=== PATIENT | female | born 1985 | race Caucasian/White ===

== ENCOUNTER 2023-09-07 14:15 | Emergency (ER) | payer OTHER, SELFPAY ==
[2023-09-07 14:21] VITALS: BP 136/93; PULSE 107; TEMP 36.6; O2SAT 99; BMI 31.1
--- NOTE | 2023-09-07 15:17 | ED.URI1 ---
HPI - URI/Sore Throat General Chief Complaint: Upper Respiratory Infection Stated Complaint: COUGH Time Seen by Provider: 09/07/23 14:25 Source: patient Limitations: no limitations History of Present Illness HPI Narrative: Patient presents to ED complaining of upper respiratory infection and cough. She has been sick for about a week and she was seen at [facility] a couple of days ago. She was placed on antibiotics steroids and given albuterol and diagnosed with bronchitis, possible pneumonia. She reports that her breathing still feels tight and she feels like her chest is tight. She reports pain in her ribs and back from coughing so much. She is at [facility] For history of fentanyl abuse. She has been sober and has 11 days left there and then will transition to sober living.She is in no respiratory distress but is mildly tachycardic. Related Data Home Medications ?Medication ?Instructions ?Recorded ?Confirmed [id number]-iudpyctn 250 1 tab PO Q6H 09/07/23 09/07/23 mg-250 mg-65 mg tablet (Pain Reliever Plus) benzonatate 100 mg capsule 100 mg PO Q12H 09/07/23 09/07/23 buspirone 7.5 mg tablet 7.5 mg PO Q12H 09/07/23 09/07/23 cetirizine 10 mg tablet 10 mg PO DAILY 09/07/23 09/07/23 docusate sodium 100 mg capsule 100 mg PO DAILY 09/07/23 09/07/23 doxycycline hyclate 100 mg capsule 100 mg PO Q12H 09/07/23 09/07/23 guaifenesin 600 mg tablet, 600 mg PO Q12H 09/07/23 09/07/23 extended release 12 hr (Mucinex) ibuprofen 800 mg tablet 800 mg PO Q12H 09/07/23 09/07/23 melatonin 10 mg tablet 10 mg PO DAILY 09/07/23 09/07/23 naltrexone microspheres 380 mg 380 mg IM .monthly 09/07/23 09/07/23 intramuscular suspension,extended release (Vivitrol) prazosin 1 mg capsule 1 mg PO DAILY 09/07/23 09/07/23 prednisone 10 mg tablet 10 mg PO Q12H 09/07/23 09/07/23 sertraline 50 mg tablet 50 mg PO Q24H 09/07/23 09/07/23 trazodone 50 mg tablet 50 mg PO DAILY 09/07/23 09/07/23 Previous Rx's ?Medication ?Instructions ?Recorded albuterol sulfate 0.63 mg/3 mL 0.63 mg (3 mL) inhalation Q8H PRN 09/07/23 solution for nebulization shortness of breath or wheezing #90 mL azithromycin 500 mg tablet See Rx Instructions PO .COMPLEX #3 09/07/23 (Zithromax TRI-LILI) tabs Allergies Allergy/AdvReac Type Severity Reaction Status Date / Time No Known Drug Allergies Allergy Verified 09/07/23 14:20 Review of Systems ROS Status of ROS 10 or more systems reviewed and unremarkable except as noted in history and below Exam Narrative Exam Narrative: Time Seen: [] Vital Signs: [Per nurse's notes.] General: [Alert] Skin: [Warm, dry, no rash.] Head: [Normocephalic, atraumatic.] Neck: [Supple, trachea midline.] Eye: [Pupils are equal, round and reactive to light, extraocular movements are intact, normal conjunctiva.] Ears, nose, mouth and throat: oral mucosa moist. Cardiovascular: Tachycardia, no murmur.] Respiratory: [Mild diminished breath sounds bilaterally respirations are non-labored, breath sounds are equal.] Chest wall: [No tenderness, no deformity.] Gastrointestinal: [Soft, nontender, non distended, normal bowel sounds.] MSK: 5 out of 5 muscle strength x 4 extremities no calf pain or edema Lymphatics: [No lymphadenopathy.] Psychiatric: [Cooperative, appropriate mood & affect.] Neurological: [Alert and oriented to person, place, time, and situation, no focal neurological deficit observed.] Constitutional Vital Signs, click to edit/add: Last Vital Signs Temp 97.9 F 09/07/23 14:21 Pulse 103 H 09/07/23 16:45 Resp 18 09/07/23 16:45 BP 127/74 09/07/23 16:45 Pulse Ox 99 09/07/23 16:45 O2 Del Method Room Air 09/07/23 15:42 Course Vital Signs Vital signs: Vital Signs Temperature 97.9 F 09/07/23 14:21 Pulse Rate 107 H 09/07/23 14:21 Respiratory Rate 18 09/07/23 14:21 Blood Pressure 136/93 H 09/07/23 14:21 Pulse Oximetry 99 09/07/23 14:21 Oxygen Delivery Method Room Air 09/07/23 14:21 Temperature 97.9 F 09/07/23 14:21 Pulse Rate 103 H 09/07/23 16:45 Respiratory Rate 18 09/07/23 16:45 Blood Pressure 127/74 09/07/23 16:45 Pulse Oximetry 99 09/07/23 16:45 Oxygen Delivery Method Room Air 09/07/23 15:42 MDM - URI/Sore Throat MDM Narrative Medical decision making narrative: Patient's labs show an elevated lactate. She was given IV fluids and her lactate did trend down. Her heart rate was originally at 115 and after fluids she came down to 89. She is feeling better. CT scan does not show any evidence of pneumonia. Labs are otherwise unremarkable. Patient does have some facial pain and sinus pressure. I am going to switch her from doxycycline over to azithromycin to cover sinuses better as well. She does have a nebulizer machine but no medication for it so I will write her for that. She has 1 more day on her steroids so she was instructed to finish her taper. Return to the emergency room if worsening symptoms or concerns. Her D-dimer was negative, no evidence of blood clot. Differential Diagnosis Differential diagnosis: Likely upper respiratory infection, sinusitis, viral infection and bronchitis Medical Records Attestation: I reviewed the patient's medical records. Lab Data Attestation: I reviewed the patient's lab results. Labs: Lab Results 09/07/23 09/07/23 Range/Units 15:20 18:10 WBC 9.2 (4.0-11.0) 10^3/uL RBC 4.52 (4.20-5.40) 10^6/uL Hgb 14.1 (12.0-16.0) g/dL Hct 42.2 (36.0-48.0) % MCV 93.4 (81.0-99.0) fL MCH 31.2 (26.7-34.0) pg MCHC 33.4 (29.9-35.2) g/dL RDW 12.9 (11.0-15.0) % Plt Count 294 (150-450) 10^3/uL MPV 11.1 (9.5-13.5) fL Neut % (Auto) 87.1 H (43.0-75.0) % Lymph % (Auto) 9.9 L (20.5-60.0) % Mccormick % (Auto) 2.4 (1.7-12.0) % Eos % (Auto) 0.0 L (0.9-7.0) % Baso % (Auto) 0.1 L (0.2-2.0) % Neut # (Auto) 8.0 H (1.4-6.5) 10^3/uL Lymph # (Auto) 0.9 L (1.2-3.8) 10^3/uL Mccormick # (Auto) 0.2 L (0.3-0.8) 10^3/uL Eos # (Auto) 0.0 (0.0-0.7) 10^3/uL Baso # (Auto) 0.0 (0.0-0.1) 10^3/uL Abs Immat Gran (auto) 0.05 H (0.00-0.03) 10^3/uL Imm/Tot Granulo (auto) 0.5 (0.0-0.5) % D-Dimer 0.27 (<=0.59) mg/L FEU Sodium 142 (136-145) mmol/L Potassium 4.0 (3.5-5.1) mmol/L Chloride 107 (98-107) mmol/L Carbon Dioxide 22.5 (21.0-32.0) mmol/L Anion Gap 16.5 BUN 23.0 H (7.0-18.0) mg/dL Creatinine 0.94 (0.55-1.02) mg/dL Est GFR ( Amer) >60 (>=60) Est GFR (Non-Af Amer) >60 (>=60) BUN/Creatinine Ratio 24.5 Glucose 201 H (74-106) mg/dL Lactate 3.1 H* 2.6 H* (0.4-2.0) mmol/L Calcium 9.2 (8.5-10.1) mg/dL Total Bilirubin 0.2 (0.2-1.0) mg/dL AST 7 L (15-37) U/L ALT 22 (14-59) U/L Alkaline Phosphatase 95 (46-116) U/L Total Protein 7.0 (6.4-8.2) g/dL Albumin 3.5 (3.4-5.0) g/dL Globulin 3.5 g/dL Albumin/Globulin Ratio 1.0 Imaging Data Chest x-ray: Radiologist's impression: ITS Impressions Chest CT 09/07/23 16:26 IMPRESSION: No acute abnormality. Unremarkable CT of the chest. Electronically authenticated by: LAM MONTANO Date: 09/07/2023 18:41 Discharge Plan Discharge Stand Alone Forms: Portal Instructions Chief Complaint: Upper Respiratory Infection Clinical Impression: Upper respiratory infection, Sinusitis Patient Disposition: Home, Self-Care Time of Disposition Decision: 18:54 Mode of Transportation: Private Vehicle Prescriptions / Home Meds: New azithromycin [Zithromax TRI-LILI] 500 mg tablet See Rx Instructions .ROUTE .COMPLEX Qty: 3 0RF Rx Instructions: For 250 mg dose pack: take 500 mg today (day 1), then 250 mg for 4 days (days 2-5) albuterol sulfate 0.63 mg/3 mL solution for nebulization 0.63 mg inhalation Q8H PRN (Reason: shortness of breath or wheezing) Qty: 90 0RF No Action Pain Reliever Plus 250-250-65 mg tablet 1 tab PO Q6H benzonatate 100 mg capsule 100 mg PO Q12H buspirone 7.5 mg tablet 7.5 mg PO Q12H cetirizine 10 mg tablet 10 mg PO DAILY docusate sodium 100 mg capsule 100 mg PO DAILY doxycycline hyclate 100 mg capsule 100 mg PO Q12H guaifenesin [Mucinex] 600 mg tablet extended release 12hr 600 mg PO Q12H ibuprofen 800 mg tablet 800 mg PO Q12H melatonin 10 mg tablet 10 mg PO DAILY Vivitrol 380 mg suspension,extended rel recon 380 mg IM .monthly prazosin 1 mg capsule 1 mg PO DAILY prednisone 10 mg tablet 10 mg PO Q12H sertraline 50 mg tablet 50 mg PO Q24H trazodone 50 mg tablet 50 mg PO DAILY Print Language: Ukrainian Instructions: Sinusitis (ED), Acute Bronchitis (ED) Referrals: KADY MTZ [Primary Care Provider] - 1 week
[2023-09-07 15:33] LABS: Basophils Percent Auto 0.1 % (0.2-2.0); Hematocrit 42.2 % (36.0-48.0); Hemoglobin 14.1 g/dL (12.0-16.0); Immature Granulocytes Abs Auto 0.05 10^3/uL (0.00-0.03); Immature Granulocytes Pct Auto 0.5 % (0.0-0.5); Lymphocytes Absolute Auto 0.9 10^3/uL (1.2-3.8); Lymphocytes Percent Auto 9.9 % (20.5-60.0); Mean Corpuscular HGB Conc 33.4 g/dL (29.9-35.2); Mean Corpuscular Hemoglobin 31.2 pg (26.7-34.0); Mean Corpuscular Volume 93.4 fL (81.0-99.0); Mean Platelet Volume 11.1 fL (9.5-13.5); Monocytes Absolute Auto 0.2 10^3/uL (0.3-0.8); Monocytes Percent Auto 2.4 % (1.7-12.0); Neutrophils Percent Auto 87.1 % (43.0-75.0); Platelet Count 294 10^3/uL (150-450); Red Blood Count 4.52 10^6/uL (4.20-5.40); Red Cell Distribution Width 12.9 % (11.0-15.0); White Blood Count 9.2 10^3/uL (4.0-11.0)
[2023-09-07] MEDS: IPRATROPIUM/ALBUTEROL SULFATE 3 ML AMPUL.NEB IH (15:41)
[2023-09-07 15:42] VITALS: PULSE 100; O2SAT 100
[2023-09-07 15:50] LABS: Alanine Aminotransferase 22 U/L (14-59); Albumin Level 3.5 g/dL (3.4-5.0); Alkaline Phosphatase 95 U/L (46-116); Anion Gap 16.5; Aspartate Amino Transferase 7 U/L (15-37); BUN Creatinine Ratio 24.5; Bilirubin Total 0.2 mg/dL (0.2-1.0); Calcium 9.2 mg/dL (8.5-10.1); Carbon Dioxide 22.5 mmol/L (21.0-32.0); Chloride 107 mmol/L (98-107); Estimated GFR (African America >60 (>=60); Estimated GFR (Non-African Ame >60 (>=60); Globulin 3.5 g/dL; Glucose 201 mg/dL (74-106); Sodium 142 mmol/L (136-145)
[2023-09-07 15:54] LABS: Lactate/Lactic Acid 3.1 mmol/L (0.4-2.0)
[2023-09-07 16:18] LABS: D Dimer 0.27 mg/L FEU (<=0.59)
--- NOTE | 2023-09-07 16:26 | CT_ITS ---
[address] [address] Patient Name: RIOS MENDEZ MRN: [id number] date: 1985 Sex: F Assigned Patient Location: ER Current Patient Location: ER Accession/Order Number: [id number] Exam Date: 09/07/2023 17:24 Report Date: 09/07/2023 18:41 At the request of: EVELYN MCCOY Procedure: CT chest wo con EXAM: CT chest wo con HISTORY: sob cough COMPARISON: None. TECHNIQUE: Axial CT imaging was performed through the chest without intravenous contrast. Multiplanar reformats were performed. Dose reduction techniques were achieved by using automated exposure control and/or adjustment of mA and/or kV according to patient size and/or use of iterative reconstruction technique. FINDINGS: Lungs: No consolidation, mass, or effusion. Airways: Normal. Mediastinum: No adenopathy. Aorta: No aneurysm. Cardiac: Normal size. No pericardial effusion. Coronary Arteries: Coronary calcifications are absent. Pulmonary vasculature: Normal morphology. Bones: No acute bony abnormality. Axilla: No adenopathy. Thyroid gland: No abnormality demonstrated on provided imaging. Soft tissues: Unremarkable. Upper abdomen: Unremarkable. Other findings: None. CT/CT chest wo con IMPRESSION: No acute abnormality. Unremarkable CT of the chest. Electronically authenticated by: LAM MONTANO Date: 09/07/2023 18:41
[2023-09-07] MEDS: PIPERACILLIN SODIUM/TAZOBACTAM 3.375 GM in 0.9 % SODIUM CHLORIDE 50 ML IV (16:33)
[2023-09-07] MEDS: 0.9 % SODIUM CHLORIDE 1,000 ML 1000 ML IV (16:33)
[2023-09-07] MEDS: VANCOMYCIN HCL 1,000 MG in 0.9 % SODIUM CHLORIDE 250 ML 250 MG IV (16:44)
[2023-09-07 16:45] VITALS: BP 127/74; PULSE 103; O2SAT 99
[2023-09-07 18:30] LABS: Lactate/Lactic Acid 2.6 mmol/L (0.4-2.0)
== END 2023-09-07 19:08 | disposition home or self-care (01) ==
PROVIDERS: Emergency Provider Emergency Medicine; PCP Family Medicine
DX: J01.90 Acute sinusitis, unspecified (principal); F19.11 Other psychoactive substance abuse, in remission
CPT/HCPCS: 36415; 71250; 80053; 83605; 85025; 85378; 87040; 94640; 96365; 96375; 99285; J3370

== ENCOUNTER 2023-09-14 09:56 | Emergency (ER) | payer OTHER, SELFPAY ==
[2023-09-14 10:02] VITALS: BP 152/98; PULSE 107; TEMP 36.8; O2SAT 99; BMI 31.9
[2023-09-14 10:07] VITALS: O2SAT 99
--- OUTSIDE RECORDS SUMMARY | 2023-09-14 10:12 | XMS_ITS | CCD ---
Author Organization [facility] Care Team Providers Care Sewer Cleaner Name Role Phone Tee Bran Unavailable Unavailable Dennise Gil Unavailable Dennise Gil Primary Care Provider [phone] Lida Malone Unavailable Dennise Gil Primary Care Provider [phone] DENNISE GIL Referring Unavailable DENNISE GIL Primary Care Unavailable MD Lory Trevino Primary Care Provider FE Blair Attending Provider [phone] FE Blair Primary Care Provider FE Blair Attending Provider BETZY WOODS Attending Unavailable LORY TREVINO Primary Care Unavailable HOLLIS GALLEGOS Consulting Unavailable HOLLIS GALLEGOS Attending Unavailable HOLLIS GALLEGOS Admitting Unavailable FE Blair Primary Care Provider FE Blair Attending Provider Mari Blair Attending Unavaila Mari Ann Primary Care Unavaila ble Mari Blair Attending Unavaila ble Mari Blair Primary Care Unavaila ble Allergies Allergy Classification Reported Allergen(s) Allergy Type Date of Onset Reaction(s) Facility (7 sources) Seasonal allergy; Translations: [Seasonal allergies] Allergy to substance (disorder) [facility] (3 sources) NO KNOWN DRUG ALLERGIES Allergy to substance (disorder) [facility] (3 sources) -No Known Food Allergies Allergy to substance (disorder) [facility] (1 source) Sertraline; Translations: [SERTRALINE] Drug Allergy 06-30-2015 [facility] Repository Medications Current Medications Medication Drug Class(es) Dates Sig (Normalized) Sig (Original) [id number] 200 actuat albuterol 0.09 mg/actuat metered dose inhaler (9 sources) beta2-Adrenergic Agonist Start: 03-11-2023 Albuterol Sulfate (Ventolin Hfa) 90 mcg/actuation HFA aerosol inhaler Active 2 INHALER INH Q4H 8.5 March 11, 2023 12:00am Start: 09-27-2021 End: 02-27-2022 take 1 puff(s) by inhalation every four to six hours Albuterol Sulfate Discontinued 2 PUFF INH every 4-6 hours 6.7 September 27, 2021 10:53am February 27, 2022 2:26pm Start: 09-11-2021 End: 09-27-2021 take 1 puff(s) by inhalation every four to six hours Albuterol Sulfate Discontinued 2 PUFF INH every 4-6 hours 6.7 September 11, 2021 12:00am September 27, 2021 11:57am Start: 09-11-2021 End: 09-27-2021 take 1 puff(s) by inhalation every four to six hours Albuterol Sulfate Discontinued 2 PUFF INH every 4-6 hours 6.7 September 10, 2021 11:00pm September 27, 2021 10:57am atorvastatin 40 mg oral tablet (4 sources) HMG-CoA Reductase Inhibitor Start: 08-28-2018 Atorvastatin Calcium 40MG Oral Tablet 08/28/2018 Provider: Dennise Gil CNP benzonatate 200 mg oral capsule (5 sources) Non-narcotic Antitussive Start: 03-11-2023 take 200 mg by mouth three times daily Benzonatate Active 200 MG PO three times a day March 11, 2023 12:00am Start: 09-11-2021 End: 09-27-2021 take 100 mg by mouth three times daily Benzonatate Discontinued 100 MG PO three times a day September 10, 2021 11:00pm September 27, 2021 10:41am busPIRone hydrochloride 10 m g oral tablet (20 sources) Start: 08-14-2018 busPIRone HCl 10MG Oral Tablet 08/14/2018 Provider: Start: 04-26-2018 End: 04-26-2018 BUSPIRONE MISC 04/26/2018 - 04/26/2018 Provider: Start: 01-09-2018 End: 01-09-2018 [facility] - 01/09/2018 Provider: Start: 01-09-2018 End: 01-09-2018 BUSPIRONE 10MG MISC 01/10/20 - 01/09/2018 Provider: Start: 11-26-2017 take 1 tablet by dea th three times daily buspirone 10 mg oral tablet 11/26/2017 take 1 tablet (10 mg) by oral route 3 times per day Start: 11-26-2017 take 1 tablet by dea th three times daily buspirone 10 mg oral tablet 11/26/2017 take 1 tablet (10 mg) by oral route 3 times per day Start: 11-26-2017 End: 11-26-2017 BUSPIRONE 10 MG [facility] - 11/26/2017 Provider: Start: 11-26-2017 End: 11-26-2017 BUSPIRONE 10MG [facility] 11/27/19 - 11/26/2017 Provider: buspirone oral cefdinir 300 mg oral capsule (5 sources) Cephalosporin Antibacterial Start: 03-11-2023 take 300 mg by mouth twice daily Cefdinir Active 300 MG PO twice a day 18 01March 11, 2023 12:00am Start: 09-11-2021 End: 09-27-2021 take 300 mg by mouth twice daily Cefdinir Discontinued 300 MG PO twice a day September 10, 2021 11:00pm September 27, 2021 10:41am metFORMIN hydrochloride 1000 mg oral tablet (11 sources) Biguanide Start: 12-11-2023 take 1000 mg by mouth once daily Metformin Active 1000 MG PO Daily March 11, 2023 12:00am Start: 11-09-2020 End: 05-07-2021 take 1000 mg by mouth once daily Metformin Discontinued 1000 MG PO Daily November 08, 2020 11:00pm May 07, 2021 4:34pm Start: 08-14-2018 End: 04-11-2019 metFORMIN HCl 500 MG Oral Ta blet 12/12/2018 - 04/11/2019 Provider: Dennise Gil CNP [place] (No Home Medications ) (1 source) Start: 10-17-2022 [place] (No Ho me Medications) Active October 17, 2022 12:00am Completed/Discontinued Medications Medication Drug Class(es) Dates Sig (Normalized) Sig (Original) Amoxicillin-Pot Clavulanate (8 sources) Start: 02-27-2022 End: 10-17-2022 take 1 tablet by mouth twice daily Amoxicillin-Pot Clavulanate Discontinued 1 TAB PO twice a day 18 01February 27, 2022 12:00am October 17, 2022 2:15pm Start: 02-27-2022 End: 10-17-2022 take 1 tablet by mouth twice daily Amoxicillin-Pot Clavulanate Discontinued 1 TAB PO twice a day 18 01February 27, 2022 1:00am October 17, 2022 3:15pm Start: 02-27-2022 take 1 tablet by dea th twice daily Amoxicillin-Pot Clavulanate Active 1 TAB PO twice a day 18 01February 27, 2022 12:00am Start: 05-07-2021 End: 09-11-2021 take 1 tablet by mouth every twelve hours Amoxicillin-Pot Clavulanate Discontinued 1 TAB PO Q12H 14 May 07, 2021 1:00am September 11, 2021 3:35pm Start: 05-07-2021 End: 09-11-2021 take 1 tablet by mouth every twelve hours Amoxicillin-Pot Clavulanate Discontinued 1 TAB PO Q12H 14 May 07, 2021 12:00am September 11, 2021 2:35pm ascorbic acid (3 sources) Vitamin C oral azithromycin 250 mg oral tablet (4 sources) Macrolide Antimicrobial Start: 09-27-2021 End: 02-27-2022 Azithromycin (Zithromax Z-Calixto) 250 mg tablet Discontinued 0 PO .COMPLEX 6 September 26, 2021 11:00pm February 27, 2022 2:26pm For 250 mg dose pack: take 500 mg today (day 1), then 250 mg for 4 days (days 2-5) PO cetirizine hydrochloride 10 mg oral tablet (11 sources) Histamine-1 Receptor Antagonist Start: 09-02-2018 End: 12-01-2018 ZyrTEC Allergy 10MG Oral Tablet 09/02/2018 - 12/01/2018 Provider: Carlie ZAVALAP Start: 04-26-2018 End: 04-26-2018 ZYRTEC MISC 04/26/2018 - Provider: Sariah oral ciprofloxacin 500 mg oral tablet (2 sources) Quinolone Antimicrobial Start: 10-17-2022 End: 03-11-2023 take 500 mg by mouth twice daily Ciprofloxacin Hcl Discontinued 500 MG PO twice a day 6 October 16, 2022 11:00pm March 11, 2023 2:26pm cloNIDine hydrochloride 0.2 mg oral tablet (10 sources) Central alpha-2 Adrenergic Agonist Start: 11-09-2020 End: 05-07-2021 take 0.2 mg by mouth once daily Clonidine Hcl Discontinued 0.2 MG PO Daily November 08, 2020 11:00pm May 07, 2021 4:34pm Start: 11-26-2017 End: 11-30-2017 Catapres 0.1 MG OR TABS 10/31 - 11/26/2017 Provider: Fluticasone Propion-Salmeterol (4 sources) Corticosteroid, beta2-Adrenergic Agonist Start: 09-11-2021 End: 02-27-2022 Fluticasone Propion-Salmeterol (Advair Diskus) 100-50 mcg/dose blister with device Discontinued 1 INHALER INH twice a day 60 September 11, 2021 12:00am February 27, 2022 3:26pm Start: 09-11-2021 End: 02-27-2022 Fluticasone Propion-Salmeter ol (Advair Diskus) 100-50 mcg/dose blister with device Discontinued 1 INHALER INH twice a day 60 September 10, 2021 11:00pm February 27, 2022 2:26pm folic acid (7 sources) Start: 04-26-2018 End: 04-26-2018 FOLIC ACID [facility] 04/26/2018 - 04/26/2018 Provider: folic acid oral gabapentin (13 sources) Anti-epileptic Agent Start: 04-26-2018 End: 04-26-2018 NEURONTIN [facility] 04/26/2018 - 04/26/2018 Provider: Start: 11-26-2017 End: 11-30-2017 take 1 capsule by mouth three times daily gabapentin 300 mg oral capsule 11/26/2017 11/30/2017 take 1 capsule (300 mg) by oral route 3 times per day for 4 days Start: 11-26-2017 End: 11-26-2017 GABAPENTIN 300 mg [facility] 11/26 - 11/26/2017 Provider: Neurontin oral Methadone (4 sources) Opioid Agonist Start: 05-07-2021 End: 09-11-2021 take 15 mg by mouth once daily Methadone Discontinued 15 MG PO Daily May 07, 2021 1:00am September 11, 2021 3:38pm Start: 05-07-2021 End: 09-11-2021 take 15 mg by mouth once daily Methadone Discontinued 15 MG PO Daily May 07, 2021 12:00am September 11, 2021 2:38pm naproxen (7 sources) Nonsteroidal Anti-inflammatory Drug Start: 04-26-2018 End: 04-26-2018 NAPROXEN [facility] 04/26/2018 - 04/26/2018 Provider: naproxen oral ondansetron 4 mg oral tablet (4 sources) Serotonin-3 Receptor Antagonist Start: 01-18-2021 End: 05-07-2021 take 4 mg by mouth every six hours Ondansetron Discontinued 4 MG PO Q6H January 17, 2021 11:00pm May 07, 2021 4:34pm oseltamivir 75 mg oral capsule (4 sources) Neuraminidase Inhibitor Start: 03-15-2021 End: 05-07-2021 take 1 capsule by mouth every twelve hours Oseltamivir (Tamiflu) 75 mg capsule Discontinued 75 MG PO Q12H 01 03March 15, 2021 12:00am May 07, 2021 4:34pm predniSONE 10 mg oral tablet (20 sources) Corticosteroid Start: 09-27-2021 End: 02-27-2022 take 10 mg by mouth once daily Prednisone Discontinued 10 MG PO Daily September 26, 2021 11:00pm February 27, 2022 2:26pm Start: 11-09-2020 End: 03-15-2021 Prednisone Discontinued 0 PO Daily 40 November 09, 2020 12:00am March 15, 2021 12:51pm take 4 tablets for 4 days, 3 tablets for 4 days then 2 tablets for 4 days then 1 tablet for 4 days PO daily; Start: 11-09-2020 End: 03-15-2021 Prednisone Discontinued 0 PO Daily 40 November 08, 2020 11:00pm March 15, 2021 11:51am take 4 tablets for 4 days, 3 tablets for 4 days then 2 tablets for 4 days then 1 tablet for 4 days PO daily; Start: 10-13-2018 predniSONE 5MG Oral Tablet 10/13/2018 Provider: Dennise Gil CNP Start: 09-29-2018 End: 10-13-2018 predniSONE 10MG Oral Tablet 09/29/2018 - 10/13/2018 Provider: Lida Malone [employer] CONSULTANT Start: 04-26-2018 End: 04-26-2018 PRED[facility]ISONE [facility] 04/26/2018 - 04/26/2018 Provider: prednisone oral promethazine hydrochloride 25 mg oral tablet (6 sources) Phenothiazine Start: 11-26-2017 End: 11-30-2017 take 1 tablet by mouth three times daily as needed for nausea promethazine 25 mg oral tablet 11/26/2017 11/30/2017 take 1 tablet by oral route TID PRN nausea Start: 11-26-2017 End: 11-26-2017 PROMETHAZINE 25 MG [facility] 10/31 - 11/26/2017 Provider: Start: 11-26-2017 End: 11-26-2017 PROMETHAZINE 25MG MISC 11/26 - 11/26/2017 Provider: QUEtiapine 200 mg oral tablet (6 sources) Atypical Antipsychotic Start: 11-26-2017 End: 11-30-2017 SEROquel 200 MG OR TABS 11/26/2017 - 11/26/2017 Provider: sertraline 100 mg oral tablet (14 sources) Serotonin Reuptake Inhibitor Start: 11-09-2020 End: 05-07-2021 take 100 mg by mouth once daily Sertraline Discontinued 100 MG PO Daily November 08, 2020 11:00pm May 07, 2021 4:34pm Start: 08-14-2018 Zoloft 100MG O ral Tablet 08/14/2018 Provider: Start: 11-26-2017 take 1 tablet by dea th once daily Zoloft 100 mg oral tablet 11/26/2017 take 1 tablet (100 mg) by oral route once daily Start: 11-26-2017 take 1 tablet by dea th once daily Zoloft 100 mg oral tablet 11/26/2017 take 1 tablet (100 mg) by oral route once daily Start: 11-26-2017 End: 11-26-2017 Zoloft 100 MG OR TABS 2017 - 11/26/2017 Provider: traZODone hydrochloride 100 mg oral tablet (8 sources) Serotonin Reuptake Inhibitor Start: 11-09-2020 End: 05-07-2021 take 100 mg by mouth at bedtime Trazodone Discontinued 100 MG PO bedtime November 08, 2020 11:00pm May 07, 2021 4:34pm Start: 08-14-2018 traZODone HCl 50MG Oral Tablet 08/14/2018 Provider: VITAMIN C MISC (4 sources) Start: 04-26-2018 End: 04-26-2018 VITAMIN C MISC 04/26/2018 - 04/26/2018 Provider: Problems Active Problems Problem Classification Problem Date Documented Date Episodic/Chronic Acute bronchitis (4 sources) Acute bronchitis; Translations: [Acute bronchitis, unspecified] 09-11-2021 Episodic Administrative/social admission (2 sources) Exercise counseling; Translations: [Dietary surveillance and counseling] Onset: 11-26-2017 Episodic Anxiety disorders (20 sources) Anxiety state, unspecified; Translations: [Generalized anxiety disorder] Onset: 11-26-2017 Chronic Complications of surgical procedures or medical care (3 sources) Complications affecting other specified body systems, not elsewhere classified, hypertension Episodic Diabetes mellitus with complications (2 sources) Hyperglycemia due to type 2 diabetes mellitus; Translations: [Type 2 diabetes mellitus with hyperglycemia] Onset: 04-03-2023 03-11-2023 Chronic Disorders of lipid metabolism (1 source) Hyperlipidemia, unspecified; Translations: [Hyperlipidemia, unspecified] Onset: 04-03-2023 Chronic Immunizations and screening for infectious disease (1 source) Exposure to communicable disease; Translations: [Exposure To Contagious Viral Disease] Onset: 09-29-2019 Episodic Mood disorders (6 sources) Depressive disorder; Translations: [Depression] Onset: 08-14-2018 Chronic Nausea and vomiting (4 sources) Nausea and vomiting; Translations: [Nausea with vomiting, unspecified] 01-18-2021 Episodic Other connective tissue disease (2 sources) Pain in right lower limb; Translations: [Pain in Right Lower Leg Near the Knee] Onset: 09-29-2018 Episodic Other non-traumatic joint disorders (3 sources) Arthropathy, unspecified, site unspecified Chronic Other non-traumatic joint disorders (3 sources) Pain in joint, site unspecified Episodic Other nutritional; endocrine; and metabolic disorders (10 sources) Simple obesity ; Translations: [Obesity Exogenous Due To Excess Calories] Onset: 08-14-2018 Chronic Other nutritional; endocrine; and metabolic disorders (3 sources) Obesity; Translations: [Obesity] Onset: 08-14-2018 Chronic Other skin disorders (4 sources) Facial swelling ; Translations: [Localized swelling, mass and lump, head] 11-09-2020 Episodic Other upper respiratory disease (7 sources) Allergic rhinitis; Translations: [Allergic Rhinitis] Onset: 09-02-2018 Chronic Other upper respiratory infections (8 sources) Acute upper respiratory infection; Translations: [Acute upper respiratory infection, unspecified] 01-18-2021 Episodic Rheumatoid arthritis and related disease (13 sources) Rheumatoid arthritis; Translations: [Rheumatoid arthritis of wrist] Onset: 09-29-2018 Chronic Screening and history of mental health and substance abuse codes (2 sources) Encounter for screening examination for other mental health and behavioral disorders; Translations: [Encounter for screening examination for other mental health and behavioral disorders] Onset: 11-16-2022 Episodic Substance-related disorders (20 sources) Tobacco dependence syndrome; Translations: [Tobacco use disorder] Onset: 11-26-2017 Chronic Unclassified (1 source) Body Mass Index 32.0-32.9, adult Onset: 11-26-2017 Chronic Unclassified (6 sources) Screening for diabetes mellitus; Translations: [Patient encounter status] Onset: 11-26-2017 04-30-2022 Episodic Unclassified (3 sources) Family history of diabetes mellitus Onset: 11-26-2017 Episodic Urinary tract infections (3 sources) Urinary tract infectious disease; Translations: [Urinary tract infection, site not specified] 10-18-2022 Episodic Past or Other Problems Problem Classification Problem Date Documented Date Episodic/Chronic Diabetes mellitus without complication (20 sources) Other abnormal glucose; Translations: [Impaired glucose tolerance] Onset: 11-26-2017 Episodic Disorders of teeth and jaw (18 sources) Acute apical periodontitis of pulpal origin; Translations: [Other specified disorders of the teeth and supporting structures] Onset: 12-15-2015 Episodic Genitourinary symptoms and ill-defined conditions (1 source) Dysuria; Translations: [Dysuria] Onset: 10-18-2022 Episodic Medical examination/evaluatio n (18 sources) Dental examination; Translations: [Special investigations and examinations; dental examination] Onset: 12-15-2015 Episodic Other connective tissue disease (2 sources) Pain in right leg; Translations: [Pain in Right Lower Leg Near the Knee] Onset: 09-29-2018 Episodic Residual codes; unclassified (7 sources) Edema; Translations: [Edema] Onset: 09-02-2018 Episodic Residual codes; unclassified (4 sources) Illness, unspecified; Translations: [Risk: Lower Extremity Edema] Onset: 09-29-2018 Unclassified (3 sources) Dast - 10 Score; Translations: [Dast - 10 Score] Onset: 08-14-2018 Unclassified (6 sources) Assessment using generalized anxiety disorder 7 item score; Translations: [Questionnaires Juan Carlos-7 Score] Onset: 08-14-2018 Unclassified (6 sources) Questionnaires Phq-9 Total Score; Translations: [Questionnaires Phq-9 Total Score] Onset: 08-14-2018 Unclassified (3 sources) Fagerstrom Score; Translations: [Fagerstrom Score] Onset: 08-14-2018 Unclassified (13 sources) Finding of body mass index; Translations: [Body Mass Index] Onset: 08-14-2018 Unclassified (3 sources) History AND physical examination; Translations: [Routine History and Physical] Onset: 08-14-2018 Results Test Name Value Interpretation Reference Range Facility Complete Blood Count no Diff on 04-03-2023 Erythrocyte distribution width (RBC) [Ratio] 12.6 % Normal 12.2-15.8 [facility] Comment on above: Performed By: #### C BCND #### [facility] [address] [place] [address] Hematocrit (Bld) [Volume fraction] 45.5 % High 34.6-44.1 [facility] Comment on above: Performed By: #### C BCND #### [facility] [address] [place] [address] Hemoglobin (Bld) [Mass/Vol] 15.5 g/dL High 11.7-14.9 [facility] Comment on above: Performed By: #### C BCND #### [place] [address] [place] [address] MCH (RBC) [Entitic mass] 31.2 pg Normal 27.8-33.2 [facility] Comment on above: Performed By: #### C BCND #### [place] [address] [place] [address] MCV (RBC) [Entitic vol] 91.7 fL Normal 83.0-97.4 [facility] Comment on above: Performed By: #### C BCND #### [place] [address] [place] [address] Mean Corpuscular HGB Conc 34.1 g/dL Normal 32.7-34.8 [facility] Comment on above: Performed By: #### C BCND #### [place] [address] [place] [address] Platelet Count 270 10'3/uL Normal 122-359 [facility] Comment on above: Performed By: #### C BCND #### [facility] [address] [place] [address] Platelet mean volume (Bld) [Entitic vol] 10.2 fL Normal 7.6-10.6 [facility] Comment on above: Performed By: #### C BCND #### [facility] [address] [place] [address] Red Blood Count 4.96 10'6/uL High 3.85-4.88 [facility] Comment on above: Performed By: #### C BCND #### [facility] [address] [place] [address] White Blood Count 7.1 10'3/uL Normal 3.2-9.3 [facility] Comment on above: Performed By: #### C BCND #### [facility] [address] [place] [address] Comprehensive Metabolic Pane ana 04-03-2023 Albumin [Mass/Vol] 4.1 g/dL Normal 3.5-5.2 [facility] Comment on above: Order Comment: FASTI NG Performed By: #### C M, LIPID #### [facility] [address] [place] [address] ALP [Catalytic activity/Vol] 71 U/L Normal 40-150 [facility] Comment on above: Order Comment: FASTI NG Performed By: #### C M, LIPID #### [facility] [address] [place] [address] ALT [Catalytic activity/Vol] 22 U/L Normal 0-55 [facility] Comment on above: Order Comment: FASTI NG Performed By: #### C M, LIPID #### [facility] [address] [place] [address] Anion gap [Moles/Vol] 12 mmol/L Normal 5-13 [facility] Comment on above: Order Comment: FASTI NG Performed By: #### C M, LIPID #### [facility] [address] [place] [address] AST [Catalytic activity/Vol] 17 U/L Normal 5-34 [facility] Comment on above: Order Comment: FASTI NG Performed By: #### C M, LIPID #### [facility] [address] [place] [address] Bilirubin [Mass/Vol] 0.3 mg/dL Normal 0.0-1.0 [facility] Comment on above: Order Comment: FASTI NG Performed By: #### C M, LIPID #### [facility] [address] [place] [address] Calcium [Mass/Vol] 9.0 mg/dL Normal 8.4-10.2 [facility] Comment on above: Order Comment: FASTI NG Performed By: #### C M, LIPID #### [facility] [address] [place] [address] Chloride [Moles/Vol] 104 mmol/L Normal 98-107 [facility] Comment on above: Order Comment: FASTI NG Performed By: #### C M, LIPID #### [facility] [address] [place] [address] CO2 [Moles/Vol] 22 mmol/L Normal 22-29 [facility] Comment on above: Order Comment: FASTI NG Performed By: #### C M, LIPID #### [facility] [address] [place] [address] Creatinine [Mass/Vol] 0.79 mg/dL Normal 0.57-1.11 [facility] Comment on above: Order Comment: FASTI NG Performed By: #### C M, LIPID #### [facility] [address] [place] [address] Glomerular Filtration Rate >60 Normal mL/min/1.73m 2 [facility] Comment on above: Order Comment: FASTI NG Performed By: #### C M, LIPID #### [facility] [address] [place] [address] Glucose [Mass/Vol] 114 mg/dL High 70-100 [facility] Comment on above: Order Comment: FASTI NG Performed By: #### C M, LIPID #### [facility] [address] [place] [address] Potassium [Moles/Vol] 3.6 mmol/L Normal 3.5-5.1 [facility] Comment on above: Order Comment: FASTI NG Performed By: #### C M, LIPID #### [facility] [address] [place] [address] Protein [Mass/Vol] 6.7 g/dL Normal 6.4-8.2 [facility] Comment on above: Order Comment: FASTI NG Performed By: #### C M, LIPID #### [facility] [address] [place] [address] Sodium [Moles/Vol] 138 mmol/L Normal 136-145 [facility] Comment on above: Order Comment: FASTI NG Performed By: #### C M, LIPID #### [facility] [address] [place] [address] Urea nitrogen [Mass/Vol] 9 mg/dL Normal 7-18 [facility] Comment on above: Order Comment: FASTI NG Performed By: #### C M, LIPID #### [facility] [address] [place] [address] [id number] 04-03-2023 Glucose [Mass/Vol] 105 mg/dL Normal [facility] Comment on above: Result Comment: The suggested goal of therapy for those diagnosed with diabetes is a Hemoglobin A1c value of less than 7.0%. Results greater than 8.0% warrant the need to reassess the treatment regimen. A1c Value Interpretation <5.7% Non-diabetic 5.7-6.4% Increased risk of diabetes Performed By: #### H BA1C #### [place] [address] [place] [address] HbA1c (Bld) [Mass fraction] 5.3 % Normal 4.0-5.6 [facility] Comment on above: Performed By: #### H BA1C #### [place] [address] [place] [address] Lipid Panelon 04-03-2023 Chol HDL Ratio 7.657 Normal [facility] Comment on above: Order Comment: FASTI NG Result Comment: DRU COWART CHOLESTEROL GUIDELINES [facility] ([facility]) guidelines for classificaton, testing and management of cholesterol levels in adults over 20 years of age. This new classification creates three categories of risk for coronary heart disease, regardless of age or sex, according to total amd LDL cholesterols levels: Based on Total Cholesterol Level Desirable <200 mg/dL Borderline-high 200-239 mg/dL High >=240 mg/dL Based on Cholesterol Ratio CHD RISK CHOL/HDL RATIO MALE FEMALE 0.5 x Average 3.4 3.3 1.0 x Average 5.0 4.4 2.0 x Average 9.6 7.1 3.0 x Average 13.5 11.0 Performed By: #### C M, LIPID #### [facility] [address] [place] [address] Cholesterol [Mass/Vol] 291 mg/dL High <200 [facility] Comment on above: Order Comment: FASTI NG Performed By: #### C M, LIPID #### [facility] [address] [place] [address] Cholesterol in HDL [Mass/Vol] 38 mg/dL Low 45-60 [facility] Comment on above: Order Comment: FASTI NG Performed By: #### C M, LIPID #### [facility] [address] [place] [address] Cholesterol in LDL [Mass/Vol] 196 mg/dL High <100 [facility] Comment on above: Order Comment: FASTI NG Performed By: #### C M, LIPID #### [facility] [address] [place] [address] Triglyceride [Mass/Vol] 284 mg/dL High <150 [facility] Comment on above: Order Comment: FASTI NG Performed By: #### C M, LIPID #### [facility] [address] [place] [address] VLDL CHOLESTEROL 57 mg/dL High 5-35 [facility] Comment on above: Order Comment: FASTI NG Performed By: #### C M, LIPID #### [facility] [address] [place] [address] Microalbumin, Random Urineon 04-03-2023 Creatinine (U) [Mass/Vol] 336.1 mg/dL High 47.0-110.0 [facility] Comment on above: Performed By: #### M ALB #### [facility] [address] [place] [address] MALB/Creat Ratio 5.2 mg/G Normal <30.0 [facility] Comment on above: Performed By: #### M ALB #### [facility] [address] [place] [address] Microalbumin Random Urine 17.6 mg/L Normal [facility] Comment on above: Performed By: #### M ALB #### [facility] [address] [place] [address] AHolaBRYNNVISon 03-11-2023 A.BRYNNVIS [facility] [address] [place] [address] Office Visit Report Signed Patient Name: Raimundo Mendez Date of : 1985 Age/Sex: 37 / F Date of Service: Location: [facility] Attending physician: Mari Blair DEAD MAIL CHECKER Intake Vital Signs 03/11/23 14:22 03/11/23 14:31 Height 5 ft 1 in Weight 175 lb 8 oz BMI 33.1 BP 128/90 128/90 BP Location Left Brachial BP Position Sitting BP Cuff Size Adult BP Source Manual Cuff Respiration 18 Pulse 87 Pulse Source Monitor Temp 98.1 F Temp Source Oral Pulse Oximetry (%) 96 Oxygen Delivery Method Room Air Intake Visit Reasons: spot on greater toe, right foot Allergies Allergy/AdvReac Type Severity Reaction Status Date / Time No Known Drug Allergies Allergy Verified 03/11/23 14:22 Current Medication List - Last Reconciled 03/11/23 by Kristina South metformin 1,000 mg tablet 1,000 mg PO DAILY Nurse's Note: Raimundo is here today to have a spot on her right big toe checked out. [facility] Medical History (Updated 03/11/23 @ 15:55 by Mari Blair, FE) Acute mucoid otitis media of both ears Acute non-recurrent pansinusitis Adult general medical exam Bonilla's palsy Blister of toe of right foot without infection Diabetes Encounter for screening for cardiovascular disorders Facial swelling Type 2 diabetes mellitus with hyperglycemia UTI (urinary tract infection) Wheezing Surgical History History of tubal ligation Family History Father No problems noted. Mother Heart disease Hypertension Other Unknown family medical history Social History Social History History Provided by: Patient Living Situation History Usual Living Arrangement: Parent(s) Tobacco History Smoking Status: Current Every Day Smoker Years Smoked: 15 Packs Per Day: 1 AUDIT-C How Often do you Have a Drink Containing Alcohol: Never How Many Standard Drinks Containing Alcohol do you Have on a Typical Day: None How Often do you Have Six or More Drinks on One Occasion: Never AUDIT-C Alcohol Total Score: 0 Substance Use History Caffeine Use: Yes Non-Prescribed Substance Use: Denies Use HPI spot on greater toe, right foot HPI Details Patient reports with complaints of a sore on the plantar surface of her right great toe. Patient is a diabetic. Patient reports approximately 3 weeks to a month ago she noticed a wound on the bottom of her right great toe resembled a blood blister then a few days ago the top layer of skin that seem to be peeled off. Patient has new skin growth under that that is pink and healthy appearing. She does have some dry skin surrounding the area where the blood blister was. Patient reports overall there is no pain and it was never painful she does not remember any trauma to the area. Patient reports that she was concerned and showed her mother and then because she is diabetic her mother insisted that she come in for evaluation. Patient is also complaining of cough no sputum production onset approximately 10 days ago. Patient's had intermittent fever and chills. Patient reports she had a lot of drainage to begin with now she just has a cough her ears are full and painful she does feel tight and wheezy. Patient reports that she is not feeling short of breath anymore but a few days ago she did. Denies any known history of asthma is smoking. Patient is a smoker and is currently smoking. Review of Systems Narrative See HPI Questionnaire PHQ-2/PHQ-9 PHQ-2 Over the last 2 weeks, how often have you been bothered by any of the following problems? Little interest or pleasure in doing things: not at all Feeling down, depressed, or hopeless: not at all Total score: 0 Physical Exam Constitutional Common normals: no acute distress, average body habitus, patient oriented x3, no limitations, healthy appearing, alert and well nourished HENT Other: No tenderness with palpation over the frontal and maxillary sinuses. Posterior oropharynx reddened clear drainage noted down the posterior oropharynx. Tympanic membranes reddened bilaterally. Clear fluid effusion behind the tympanic membrane on the left. Mucoid fluid behind the tympanic membrane on the right Neck C-Spine Common normals: no JVD Respiratory Common normals: normal respiratory effort, Normal inspection, No retractions, No use of accessory muscles, Good bilateral breath sounds, good inpiratory effort and good expiratory effort Other: Scattered expiratory wheezes throughout. Cardio Common normals: no JVD, regular rate, regular rhythm, S1 normal heart sound present, S2 normal heart sound present, No ga (more content not included)... Normal [facility] No Panel InformationOrdered By: Mari Blair on 03-11-2023 Flu A [facility] Alcohol Bloodon 11-16-2022 ALCO-B <10 Normal <10 [facility] Comment on above: Order Comment: Testi ng performed at [facility], [address] [place] [address] Result Comment: < 10 mg/dL = None detected. (minimum sensitivity) 10- 50 mg/dL or 0.01-0.05 % = None to mild euphoria. 50-100 mg/dL or 0.05-0.10 % = Mild influence on stereoscopic vision and dark adaptation. 80 mg/dL or 0.08 % = Legally intoxicated. 100-150 mg/dL or 0.10-0.15 % = Euphoric disappearance of inhibition. Prolonged reaction time. 150-200 mg/dL or 0.15-0.20 % = Moderately severe poisoning. Reaction time greatly prolonged. Loss of inhibition and slight disturbances of equilibrium and coordination. 200-250 mg/dL or 0.20-0.25 % = Severe degree of poisoning. Disturbances of equilibrium and coordination. Retardation of the thought processes and clouding of consciousness. 250-400 mg/dL or 0.25-0.40 % = Deep, possible fatal coma. Draw Site Right Antecubital Normal [facility] Comment on above: Order Comment: Testi ng performed at [facility], [address] [place], [place] [id number] Cash Clerk Name oscar waller Corbin [facility] Comment on above: Order Comment: Testi ng performed at [facility], [address] [place] [id number] Skin Prep Used Betadine [facility] Comment on above: Order Comment: Testi ng performed at [facility], [address] [place] [id number] RonitBRYNNBeryl 10-17-2022 AHolaBRYNNJD [facility] [address] [place] [id number] Office Visit Report Signed Patient Name: Raimundo Mendez Date of : 1985 Age/Sex: 37 / F Date of Service: Location: [facility] Attending physician: Mari Blair DEAD MAIL CHECKER Intake Vital Signs 10/17/22 15:12 10/17/22 15:16 Height 5 ft 1 in Weight 86.636 kg BMI 36.1 BP 110/74 110/74 BP Location Right Brachial BP Position Sitting BP Cuff Size Large Adult Respiration 16 Pulse 111 H Temp 97.7 F Temp Source Oral Pulse Oximetry (%) 98 Oxygen Delivery Method Room Air Intake Visit Reasons: ?UTI Allergies Allergy/AdvReac Type Severity Reaction Status Date / Time No Known Drug Allergies Allergy Verified 02/27/22 14:26 Current Medication List - Last Reconciled 10/17/22 by Lorenza Mason No Home Medications Nurse's Note: Raimundo is here for UTI sx that started Saturday. PFSH PFS Medical History (Updated 10/18/22 @ 17:32 by Mari Blair, FE) Acute non-recurrent pansinusitis Adult general medical exam Bonilla's palsy Diabetes Encounter for screening for cardiovascular disorders Facial swelling UTI (urinary tract infection) Surgical History History of tubal ligation Family History Father No problems noted. Mother Heart disease Hypertension Other Unknown family medical history Social History Social History History Provided by: Patient Living Situation History Usual Living Arrangement: Parent(s) Tobacco History Smoking Status: Current Every Day Smoker Years Smoked: 15 Packs Per Day: 1 AUDIT-C How Often do you Have a Drink Containing Alcohol: Never How Many Standard Drinks Containing Alcohol do you Have on a Typical Day: None How Often do you Have Six or More Drinks on One Occasion: Never AUDIT-C Alcohol Total Score: 0 Substance Use History Caffeine Use: Yes Non-Prescribed Substance Use: Denies Use HPI ?UTI HPI Details Patient reports with complaints of urinary urgency frequency lower abdominal pain. Onset approximately 4 days ago patient did have fever chills at 1 point. She is really been trying to push fluids she used Azo and was drinking a lot of cranberry juice. Patient denies any back or flank pain. Denies known hematuria. Review of Systems Narrative see hpi Questionnaire PHQ-2/PHQ-9 PHQ-2 Over the last 2 weeks, how often have you been bothered by any of the following problems? Little interest or pleasure in doing things: not at all Feeling down, depressed, or hopeless: not at all Total score: 0 Physical Exam Constitutional Common normals: no acute distress, average body habitus, patient oriented x3, no limitations, healthy appearing, alert and well nourished Neck C-Spine Common normals: no JVD Respiratory Common normals: normal respiratory effort, Normal inspection, No retractions, No use of accessory muscles, clear to auscultation bilaterally, Good bilateral breath sounds, good inpiratory effort and good expiratory effort Auscultation: clear to auscultation bilaterally Cardio Common normals: no JVD, regular rate, regular rhythm, S1 normal heart sound present, S2 normal heart sound present, No gallops present (Cardio), No clicks present (Cardio), No murmurs present (Cardio) and No rub (Cardio) Rate: regular rate Rhythm: regular rhythm Heart sounds: S1 normal heart sound present and S2 normal heart sound present Common normals: no CVA tenderness Bladder/kidney exam: no CVA tenderness Back Pelvis Common normals: no CVA tenderness Neuro Common normals: alert, patient oriented x3 and CN's II-XII intact bilaterally Sensorium/orientation : Yes alert Psych Common normals: mental status grossly normal, Normal thought process present and cooperative Thought process: Normal thought process present Assessment Plan Assessment Plan (1) UTI (urinary tract infection): Code(s): N39.0 - Urinary tract infection, site not specified Category: Medical Qualifiers: Urinary tract infection type: acute cystitis Hematuria presence: without hematuria Qualified Code(s): N30.00 - Acute cystitis without hematuria Plan: I did collect a UA we will send it for culture. I have started patient on Cipro 500 mg twice daily for the next 3 days. Patient was instructed if she had worsening symptoms fever chills blood in her urine she should seek immediate ER attention. Patient verbalized understanding. Orders: Orders AM.Urinalysis 10/17/22 R30.0 - Dysuria Urine Culture Today R30.0 - Dysuria Medications: New ciprofloxacin HCl 500 mg PO BID 6 tabs 0RF N39.0 - Urinary tract infection, site not specified (more content not included)... Normal [facility] CT HEAD W/O CONTRASTon 03-18 CT HEAD W/O CONTRAST [facility] Name: RAIMUNDO MENDEZ : 1985 Unit #: [id number] Age: 34 Attending Physician: Pt Location: ER Date of Service: 03/17/20 CT HEAD W/O CONTRAST HISTORY: Right facial droop. CT brain without contrast. 03/17/2020. 10:15 p.m. TECHNIQUE: Axial images were obtained through the brain without IV contrast. Images were viewed in soft tissue and bone windows. Individualized dose optimization techniques were used for the CT scan. FINDINGS: There is no evidence of a mass or infarct. There is no hemorrhage or hematoma. There is no midline shift or evidence of increased intracranial pressure. IMPRESSION: An unenhanced CT scan of the brain appears normal. This corresponds to the preliminary report by [facility]. EXAM/ORDER VERIFICATION: Y PT/FAMILY VERBALIZES UNDERSTANDING OF EXAM Y PT SHIELDED Y Is pt ? N LMP N/A TECH INITIALS MM COMMENTS Electronically Signed by: FLY AGUIRRE M.D. 03/18/20 1214 FLY AGUIRRE M.D. Date Dict: 03/18/20 0807 FLY AGUIRRE M.D. Date Trans: 03/18/20 0956 [facility] [phone] cc: JOSEPH COKER MD-LORY GARCIAS M.D. Normal [facility] HISTORY PRESENT ILLNESSon HISTORY PRESENT ILLNESS Name: RAIMUNDO MENDEZ : 1985 Unit #: [id number] Age: 34 Family Physician: Pt Location: ER Arrival Date 03/17/202157 ER Physician: JOSEPH COKER MD-WYATT [facility] EMERGENCY ROOM History of Present Illness History of Present Illness Time Seen: 22:07 History of Present Illness The patient is a 34 year old female who presented to the Emergency Department with the complaint of right sided facial pain and droop. She relates that this started early this morning. But she has tried to make it through her shift without coming in. However it started to be more painful. She notices that whenever she moves her mouth it starts to cause quite a bit of pain. She relates all the teeth on top are false. The one's on the bottom are real. She has noticed that there is so much swelling now that she is unable to move her mouth on the right side. There is a family history of stroke. She herself is generally healthy and well. Past Medical History Past Medical History Pertinent Medical History: Anxiety, Depression, Diabetes, Hypertension Pertinent Surgical History: Hysterectomy Other Pertinent History: multiple street drugs is in recovery Family History Significant Family Medical Hx: No Significant History Social History Marital Status X Legally Living Arrangments: Family Employment Status: Full-Time Smoking Status: Current Everyday Smoker Smoking Duration: 12 Smoking Packs Per Day: 0.50 Alcohol Use: Denies Drug Use: Denies Inpatient Tx for Alcohol/Drug: Yes - recovering heroin addict Allergies Allergies: Coded Allergies: No Known Allergies (Verified , 03/17/20) Home Medications Home Medications See Reconcile Meds Review of Systems Review of Systems Constitutional: Negative Skin: Negative Opthalmologic: Negative ENT: Other - Right-sided facial swelling of the upper right lip and cheek ; Denies: Ear pain Respiratory: Negative Cardiovascular: Negative Gastrointestinal: Negative : Negative Musculoskeletal: Negative Neurological: Other - The usual weakness on the right side that only involves the right side of the lips. It does appear to be swollen however and I suspect that due to the swelling she is having trouble moving the area correctly. Physical Exam Physical Exam Initial Vital Signs Vital Signs Date Time Temp Pulse Resp B/P (MAP) Pulse Ox O2 Delivery O2 Flow Rate FiO2 03/17/20 22:30 98.2 82 16 166/106 (126) 99 Room Air General Appearance: No apparent distress HEENT: Atraumatic, PERRLA, Other - The patient does have swelling to the right side of her upper lip with swelling noted into the cheek as well. It is tender on palpation. I do not appreciate any abscess. The lower lip and V1 distribution are mildly swollen on the right. There is no airway involvement and no involvement into the mouth itself. Her teeth appear normal with no abscess. The top teeth are false. The bottom are her true real teeth. Neither had any abnormality that I can currently see. Neck: Normal Inspection, Soft and Supple Respiratory: Normal inspection, Easy effort, Good inspiratory effort, Good expiratory effort, No accessory muscle use, Chest non-tender, Lungs clear, No rales, No rhonchi, No wheezes, No respiratory distress Cardiovascular: Regular rate and rhythm, No murmur Gastrointestinal: Soft, Non-tender, Nondistended Back: Normal inspection, Normal range of motion Musculoskeletal: Normal inspection, No edema Neurologic/Psychiatri c: Alert, Oriented x3, Normal mood/affect Skin: Normal color, Warm/dry Lymphatic: No adenopathy Course of Treatment Nursing Notes Assessments Nursing Notes/Assessments: Reviewed Agreed Medical Decision Making Medical Decision Making We did discuss that this could be Bonilla's palsy or something as far as an infection of the face and soft tissue or teeth. If CT of the head is negative I would recommend treatment with antibiotics and steroids. She is agreeable. I have answered any questions she has at this time. Medications Medications given in ED Medications Given in ED Clindamycin HCl (Cleocin) 150 mg ONCE ED ONCE PO ; Start 03/17/20 at 22:55; Stop 03/17/20 at 22:56; Status DC Prednisone (Deltasone) 40 mg ONCE ED ONCE PO ; Start 03/17/20 at 22:55; Stop 03/17/20 at 22:56; Status DC Radiology/CT/US CT Exams: Head CT - Interpretation: Radiologist - Final - Negative for any acute findings Progress #1 Repeat Vital Signs Vital Signs Date Time Temp Pulse Resp B/P (MAP) Pulse Ox O2 Delivery O2 Flow Rate FiO2 03/17/20 22:30 98.2 82 16 166/106 (126) 99 Room Air Progress: Condition unchanged Departure Departure Disposition: Home Diagnosis: Primary Impression: Bonilla's palsy Additional Impression: Right facial swelling Condition: Stable Patient Instructions: Bonilla Palsy (ED) Referrals: LOYR TREVINO M.D. (PCP) 2-3 Days Home Medications: Reviewed, New Medications Added Scripts Prednisone (Prednisone) 20 Mg Tablet 20 MG PO BID, #10 TAB Prov: JOSEPH COKER MD-ED 03/17/20 Clindamycin HCl (Clindamycin HCl) 300 Mg Capsule 1 CAPSULE PO BID, #14 CAPSULE Prov: JOSEPH COKER MD-ED 03/17/20 Departure Forms: Patient Health Portal JOSEPH COKER MD-ED Mar 17, 2020 23:02 (Please note that portions of this note were completed with a voice recognition program. Efforts were made to edit the dictations but occasionally words are mis-transcribed.) Electronically Signed by: JOSEPH COKER MD 03/17/20 2302 JOSEPH COKER MD [phone] cc: LORY TREVINO M.D. Normal [facility] CHEST - PORTABLEon 0 CHEST - PORTABLE [facility] Name: RAIMUNDO MENDEZ : 1985 Unit #: [id number] Age: 34 Attending Physician: Pt Location: ER Date of Service: 09/28/19 CHEST - PORTABLE HISTORY: Shortness of breath Study: Portable chest dated 09/28/2019. 12:44 p.m. FINDINGS: The cardiomediastinal silhouette appears normal. The lungs are clear. No pleural fluid. IMPRESSION: No evidence of acute chest disease. The emergency department was notified. EXAM/ORDER VERIFICATION: Y PT/FAMILY VERBALIZES UNDERSTANDING OF EXAM Y PT SHIELDED N Is pt ? N LMP N TECH INITIALS JT COMMENTS NO CHANCE OF PREG Electronically Signed by: ARTEM JOSE M.D. 09/28/19 1314 ARTEM JOSE M.D. Date Dict: 09/28/19 1310 ARTEM JOSE M.D. Date Trans: 09/28/190 [facility] [phone] cc: LORY TREVINO M.D.-[facility] ALE GRIFFIN MD-[facility] HISTORY PRESENT ILLNESSon HISTORY PRESENT ILLNESS Name: RAIMUNDO MENDEZ : 1985 Unit #: [id number] Age: 34 Family Physician: Pt Location: ER Arrival Date 09/28/19 - 1042 ER Physician: ALE GRIFFIN MD-ER [facility] EMERGENCY RO[facility] History of Present Illness History of Present Illness Time Seen: 12:05 History of Present Illness The patient is a 34 year old female who presented to the Emergency Department with the complaint of cough, fever, possible covid. Symptoms started this past Saturday. She has had a little bit of nasal congestion as well as a harsh but nonproductive cough. She feels like she is wheezing. She does maybe complain of a little bit of shortness of breath but she relates that the wheezing. She tells me that she has felt like this in the past when she has a bronchitis or the like. She tried to call a doctor today to see her doctor but he told to come here as he was concerned of COVID. There is been no other evaluation or management of these symptoms prior arrival. Patient does work with the public. No known sick contacts. Past Medical History Past Medical History Pertinent Medical History: Anxiety, Depression, Diabetes, Hypertension Pertinent Surgical History: Hysterectomy Other Pertinent History: multiple street drugs is in recovery Family History Significant Family Medical Hx: No Significant History Social History Marital Status X Legally Living Arrangments: Parent(s) Smoking Status: Current Everyday Smoker Smoking Duration: 12 Smoking Packs Per Day: 0.50 Secondary Smoke Exposure: Occassionally Other Form of Tobacco Used: Never Alcohol Use: Denies Drug Use: Denies Inpatient Tx for Alcohol/Drug: Yes Allergies Allergies: Coded Allergies: No Known Allergies (Verified , 09/28/19) Home Medications Home Medications See Reconcile Meds Review of Systems Review of Systems All Other Systems: Reviewed and Negative Physical Exam Physical Exam Initial Vital Signs Vital Signs Date Time Temp Pulse Resp B/P (MAP) Pulse Ox O2 Delivery O2 Flow Rate FiO2 09/28/19 11:17 98.4 94 16 141/92 (108) 98 Room Air General Appearance: No apparent distress, Other - Patient is coughing frequently with a loose sounding and harsh nonproductive cough. HEENT: Atraumatic, PERRL, TMs normal, Pharynx normal Neck: Normal Inspection, Soft and Supple Respiratory: Normal inspection, Easy effort, No rales, No rhonchi, No wheezes, No respiratory distress Cardiovascular: Regular rate and rhythm, Normal S1 and S2 Gastrointestinal: Soft, Non-tender, Nondistended, No guarding Musculoskeletal: Normal inspection, No pedal edema, No swelling, No tenderness Neurologic/Psychiatri c: Alert, Oriented x3, Normal mood/affect, Non-focal neuro exam Skin: Normal color, Warm/dry, No rash Course of Treatment Medical Decision Making Medical Decision Making I am concerned of COVID however patient is not short of breath and is not hypoxic. I have ordered a chest x-ray and breathing treatment on this patient. I have shared my concerns with the patient. Medications Medications given in ED Medications Given in ED Albuterol Sulfate (Ventolin, Proventil) 2.5 mg ONCE ED ONCE NEB Last administered on 09/28/19at 12:45; Start 09/28/19 at 12:20; Stop 09/28/19 at 12:21; Status DC Radiology/CT/US X-Ray Exams: Chest Portable X-Rays - Interpretation: Radiologist - Final - Negative study Progress #1 Time Patient Reassessed: 13:34 Repeat Vital Signs Vital Signs Date Time Temp Pulse Resp B/P (MAP) Pulse Ox O2 Delivery O2 Flow Rate FiO2 09/28/19 12:27 95 09/28/19 11:43 Room Air 09/28/19 11:17 98.4 94 16 141/92 (108) 98 Room Air Re-Evaluation Patient feels much better on reevaluation. No wheezing. I would say symptoms are viral in this COVID Rich environment, presumably COVID. She is not hypoxic and not short of breath. I feel that it is fine and safe for discharge. Infectious disease precautions have been given. Departure Departure Disposition: Home Diagnosis: Primary Impression: Suspected COVID-19 virus infection Condition: Improved Patient Instructions: Acute Bronchitis (ED), COVID-19 (Coronavirus Disease 2019) (ED) Referrals: LORY TREVINO M.D[facility] (PCP) 3-4 Days Home Medications: Reviewed Departure Forms: Patient Health Portal, Report of Work Ability Return to Work Date: Oct 10, 2019 ALE GRIFFIN MD-IMANI Sep 28, 2019 12:24 (Please note that portions of this note were completed with a voice recognition program. Efforts were made to edit the dictations but occasionally words are mis-transcribed.) Electronically Signed by: ALE GRIFFIN MD 09/28/19 1336 ALE GRIFFIN MD [id number] cc: Normal [facility] HISTORY PRESENT ILLNESSon HISTORY PRESENT ILLNESS Name: RAIMUNDO MENDEZ : 1985 Unit #: [id number] Age: 34 Family Physician: Pt Location: ER Arrival Date 08/23/19 - 1116 ER Physician: ALE GRIFFIN MD-IMANI [facility] EMERGENCY ROOM History of Present Illness History of Present Illness Time Seen: 11:19 History of Present Illness The patient is a 34 year old female who presented to the Emergency Department with the complaint of sore in and around mouth, out of valtrex. pt was seen by her PCP on Saturday of this week for oral/lip sores and given Valtrex. she reports she is almost out of her anti-viral and is still symptomatic-painful. no f/c/n/v/dysphagia/nec k pain/vision changes or SANDERS. hx of oral herpes confirmed but never on her face. she has not other complaints today. All negative except as noted as PERTINENT POSITIVES in History of Present Illness. REVIEW OF SYSTEMS: Constitutional: No fever or chills HEENT: No ear pain or discharge. No sinus or facial pain. No sorethroat. Eyes: No double vision or discharge. No pain. Cardiovascular: No chest pain. No palpitations. Respiratory: No wheezing. No shortness of breathing. No cough. Gastrointestinal: No nausea, vomiting, diarrhea, constipation or abdominal pain. : No hematuria. No dysuria. Musculoskeletal: No swelling. No pain. Skin: + rash. Neurological: No numbness, weakness or headache. 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 Family History Significant Family Medical Hx: No Significant History Social History Marital Status X Legally Smoking Status: Current Everyday Smoker Smoking Duration: 12 Allergies Allergies: Coded Allergies: No Known Allergies (Verified , 08/23/19) Home Medications Home Medications See Reconcile Meds Physical Exam Physical Exam Initial Vital Signs Vital Signs Date Time Temp Pulse Resp B/P (MAP) Pulse Ox O2 Delivery O2 Flow Rate FiO2 08/23/19 11:29 98.6 98 20 134/85 (101) 99 Room Air PHYSICAL EXAM: Constitutional: nontoxic, well-developed, mild pain distress HEENT: atraumatic scalp. pupils equal and round bilat. posterior pharynx wnl. no dysphagia. left side of tongue with stomatitis. no tongue elevation/trismus/ble eding/discharge. lower lip crusting/scabbed vesicular rash. no extension of any rash to nose/eyes, only lower lip on right. Neck: normal to inspection. full ROM. no midline TTP. no paraspinal TTP. no ant cervical lymphadenopathy appreciated. Respiratory: LCTA. comfortable speech and breathing. no cough. Cardio: RRR. S1, S2. no murmurs appreciated. Musculoskeletal: normal to inspection Neuro: alert, age-appropriate mentation and interaction. Integument: warm, dry, normal color. no rash appreciated. Course of Treatment Nursing Notes Assessments Nursing Notes/Assessments: Reviewed Agreed Medical Decision Making Medical Decision Making no signs of 2* infection, significant stomatitis and some facial rash. magic mouthwash rx provided with additional Acyclovir and new Doxy. PCP f/u recommended. nontoxic. Progress #1 Repeat Vital Signs Vital Signs Date Time Temp Pulse Resp B/P (MAP) Pulse Ox O2 Delivery O2 Flow Rate FiO2 08/23/19 12:42 93 20 138/93 (108) 08/23/19 11:29 98.6 98 20 134/85 (101) 99 Room Air Departure Departure Disposition: Home Diagnosis: Primary Impression: Herpes Additional Impression: Stomatitis Condition: Good Patient Instructions: Oral Mucositis (ED) Additional Instructions: Adding additional anti-viral course as well as Antibiotic course for any secondary infection present. Motrin and Tylenol for pain as needed. Referrals: LORY TREVINO M.D[facility] (PCP) 2-3 Days Home Medications: Reviewed Scripts Doxycycline Hyclate (Doxycycline Hyclate *) 100 Mg Capsule 100 MG PO BID for 7 Days, #14 CAPSULE Prov: SHERRIE LOPEZ P.A. 08/23/19 Acyclovir (Acyclovir) 400 Mg Tablet 1 TAB PO TID for 10 Days, #30 TAB Prov: SHERRIE LOPEZ P.A. 08/23/19 SHERRIE LOPEZ P.A. August 23, 2019 12:18 (Please note that portions of this note were completed with a voice recognition program. Efforts were made to edit the dictations but occasionally words are mis-transcribed.) Electronically Signed by: SHERRIE LOPEZ.AHola 08/23/19 1736 SHERRIE LOPEZ P.A. [phone] cc: Normal [facility] HISTORY PRESENT ILLNESS Name: RAIMUNDO MENDEZ : 1985 Unit #: [id number] Age: 34 Family Physician: Pt Location: ER Arrival Date 08/23/19 - 1116 ER Physician: ALE GRIFFIN MD-ER [facility] EM[facility] Attending Attestation Attending Attestation I performed a history and physical examination of the patient and discussed management with the DEAD MAIL CHECKER/PA. I reviewed the DEAD MAIL CHECKER/PA's note and agree with the documented findings and plan of care. Any areas of disagreement are noted on the chart. I was personally present for the pimentel portions of any procedures. I have documented in the chart those procedures where I was not present during the pimentel portions. I have reviewed the emergency nurses triage note. I agree with the chief complaint, past medical history, past surgical history, allergies, medications, social and family history as documented unless otherwise noted below. Documentation of the HPI, Physical Exam and Medical Decision Making performed by the DEAD MAIL CHECKER/PA is based on my personal performance of the HPI, PE and MDM. For DEAD MAIL CHECKER/PA cases/ documentation I have personally evaluated this patient and have completed at least one if not all pimentel elements of the E/M (history, physical exam, and MDM). Additional findings are as noted. 34-year-old female with a history of oral herpes presents to the emergency department today complaining of mouth pain second to sores on her lips as well as mouth. She was placed on Valtrex and inches with a complete course without any resolution of symptoms. She denies any constitutional symptoms otherwise. 18 drinking makes the pain worse. Nothing makes pain better. There are extensive ulcers to this patient's time as well as some pretty crusted lesions to the outside portion of this patient is alert. She is maintaining airway secretions without difficulty. Certainly this would like a herpes outbreak and stomatitis. Patient be treated accordingly. History of Present Illness History of Present Illness Time Seen: 12:06 History of Present Illness The patient is a 34 year old female who presented to the Emergency Department with the complaint of sore in and around mouth, out of valtrex. 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 Family History Significant Family Medical Hx: No Significant History Social History Marital Status X Legally Smoking Status: Current Everyday Smoker Smoking Duration: 12 Allergies Allergies: Coded Allergies: No Known Allergies (Verified , 08/23/19) Home Medications Home Medications See Reconcile Meds Physical Exam Physical Exam Initial Vital Signs Vital Signs Date Time Temp Pulse Resp B/P (MAP) Pulse Ox O2 Delivery O2 Flow Rate FiO2 08/23/19 11:29 98.6 98 20 134/85 (101) 99 Room Air Course of Treatment Progress #1 Repeat Vital Signs Vital Signs Date Time Temp Pulse Resp B/P (MAP) Pulse Ox O2 Delivery O2 Flow Rate FiO2 08/23/19 11:29 98.6 98 20 134/85 (101) 99 Room Air ALE GRIFFIN MD-ER August 23, 2019 12:18 (Please note that portions of this note were completed with a voice recognition program. Efforts were made to edit the dictations but occasionally words are mis-transcribed.) Electronically Signed by: ALE GRIFFIN MD 08/23/19 1218 ALE GRIFFIN MD [id number] cc: Normal [facility] CBCon 05-05-2019 Erythrocyte distribution width (RBC) [Ratio] 13.5 % Normal 12.2-15.8 [facility] Comment on above: Performed By: #### C BCN #### [facility] CLIA # [id number] [address] [place] [address] Hematocrit (Bld) [Volume fraction] 40.7 % Normal 34.6-44.1 [facility] Comment on above: Performed By: #### C BCN #### [facility] CLIA # [id number] [address] [place] [address] Hemoglobin (Bld) [Mass/Vol] 14.3 g/dL Normal 11.7-14.9 [facility] Comment on above: Performed By: #### C BCN #### [facility] CLIA # [id number] [address] [place] [address] MCH (RBC) [Entitic mass] 32.3 pg Normal 27.8-33.2 [facility] Comment on above: Performed By: #### C BCN #### [facility] CLIA # [id number] [address] [place] [address] MCH (RBC) [Entitic mass] 35.0 g/dL High 32.7-34.8 [facility] Comment on above: Performed By: #### C BCN #### [facility] CLIA # [id number] [address] [place] [address] MCV (RBC) [Entitic vol] 92.3 fL Normal 83.0-97.4 [facility] Comment on above: Performed By: #### C BCN #### [facility] CLIA # [id number] [address] [facility] [place] [address] Platelet mean volume (Bld) [Entitic vol] 10.4 fL Normal 7.6-10.6 [facility] Comment on above: Performed By: #### C BCN #### [facility] CLIA # [id number] [address] [place] [address] Platelets (Bld) [#/Vol] 238 10'3/uL Normal 122-359 [facility] Comment on above: Performed By: #### C BCN #### [facility] CLIA # [id number] [address] [place] [address] RBC (Bld) [#/Vol] 4.41 10'6/uL Normal 3.85-4.88 [facility] Comment on above: Performed By: #### C BCN #### [facility] CLIA # [id number] [address] [place] [address] WBC (Bld) [#/Vol] 6.7 10'3/uL Normal 3.2-9.3 [facility] Comment on above: Performed By: #### C BCN #### [facility] CLIA # [id number] [address] [place] [address] FERRITINon 05-05-2019 Ferritin [Mass/Vol] 110.6 ng/mL Normal 8-388 [facility] Comment on above: Performed By: #### T SH, STELLA #### [facility] CLIA # [id number] [address] [place] [address] TSH 3RD GENERATIONon 020 TSH 3RD GENERATION 1.093 uIU/mL Normal 0.358-3.74 [facility] Comment on above: Performed By: #### T , STELLA #### [facility] CLIA # [id number] [address] [place] [address] [id number] 04-15-2019 HbA1c (Bld) [Mass fraction] 5.4 % Normal 4.0-5.6 [facility] Comment on above: Performed By: #### H BA1C #### [facility] CLIA # [id number] [address] [place] [address] HbA1c (Bld) [Mass fraction] 108 mg/dL Normal [facility] Comment on above: Result Comment: THE SUGGESTED GOAL OF THERAPY FOR THOSE DIAGNOSED WITH DIABETES IS A HEMOGLOBIN A1c VALUE OF LESS THAN 7.0%. RESULTS GREATER THAN 8.0% WARRANT THE NEED TO REASSESS TREATMENT REGIMEN. A1c VALUE INTERPRETATION <5.7 Non-Diabetic 5.7-6.4 Increased Risk of Diabetes >or=6.5 Consistent with Diabetes Caution should be exercised when interpreting the HbA1c results from patients with total hemoglobin <9.0g. Reference: Standards of Medical Care in Diabetes-2017 Diabetes Care 2017 Apr; 40 (Supplement 1): S11-S14 Performed By: #### H BA1C #### [facility] CLIA # [id number] [address] [place] [address] HSV RAPID CULTUREon 04-04-19 20 HSV RAPID CULTURE HSV RAPID CULTURE see below Normal [facility] Comment on above: Order Comment: Has S pecimen Been Collected? Y Antibiotics Taken/Given Before Culture Obtained: N HERPES SIMPLEX VIRUS CULTURE SOURCE : TON RESULT Not Isolated Reference Range: Not Isolated Test Performed by Zhane Curtis, [facility], [address] [place] [id number] Jovanny Aguila M.D., Ph.D., Director of Laboratories , CLIA [id number] HISTORY PRESENT ILLNESSon HISTORY PRESENT ILLNESS Name: RAIMUNDO RHODES : 1985 Unit #: [id number] Age: 33 Family Physician: Pt Location: ER Arrival Date 03/29/19 - 1326 ER Physician: ALE GRIFFIN MD-ER [facility] EMERGENCY RO[facility] History of Present Illness History of Present Illness Time Seen: 13:42 History of Present Illness The patient is a 33 year old female who presented to the Emergency Department with the complaint of sore throat, ear pain. She reports ulcers in her mouth. Symptoms started yesterday. She reports that they are very painful. Eating and drinking makes the pain worse. Nothing makes pain better. No fevers or chills. She still is able to swallow but does so with pain. She describes the pain is severe. She denies any rash to her hands are to her fever frankly anywhere else. There is been no other evaluation or management of these symptoms prior to arrival. 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 Family History Significant Family Medical Hx: No Significant History Social History Marital Status M Smoking Status: Current Everyday Smoker Smoking Duration: 12 Smoking Packs Per Day: 0.50 Alcohol Use: Denies Drug Use: Denies Allergies Allergies: Coded Allergies: No Known Allergies (Verified , 03/29/19) Home Medications Home Medications See Reconcile Meds Review of Systems Review of Systems All Other Systems: Reviewed and Negative Physical Exam Physical Exam Initial Vital Signs Vital Signs Date Time Temp Pulse Resp B/P (MAP) Pulse Ox O2 Delivery O2 Flow Rate FiO2 03/29/19 13:45 97.2 103 16 138/65 (89) 98 Room Air General Appearance: No apparent distress HEENT: PERRL, EOM Intact, Pharynx normal, Other - There are multiple ulcers primarily on this patient's tongue but to a lesser extent on her other mucous membranes. No trismus. No pharyngeal asymmetry. Neck: Normal Inspection, Soft and Supple Respiratory: Normal inspection, Easy effort, No rales, No rhonchi, No wheezes, No respiratory distress Cardiovascular: Regular rate and rhythm, Normal S1 and S2 Musculoskeletal: Normal inspection, No pedal edema, No swelling, No tenderness Neurologic/Psychiatri c: Alert, Oriented x3, Normal mood/affect, Non-focal neuro exam Skin: Normal color, Warm/dry, No rash Course of Treatment Medical Decision Making Medical Decision Making Patient has multiple ulcers on her tongue and in her mouth consistent with a gingivostomatitis. I feel symptoms are viral and she will be treated accordingly. Upon review of old medication she routinely gets magic mouth wash from her life insurance specialist. She tells me now that she has infections like this typically one-time a month. I feel most likely that she has herpes simplex and will start her on oral antivirals and she may be need to be chronically on preventative medication. Progress #1 Re-Evaluation Vital Signs Date Time Temp Pulse Resp B/P (MAP) Pulse Ox O2 Delivery O2 Flow Rate FiO2 03/29/19 13:45 97.2 103 16 138/65 (89) 98 Room Air Departure Departure Disposition: Home Diagnosis: Primary Impression: Herpes gingivostomatitis Condition: Good Patient Instructions: Gingivostomatitis (ED) Referrals: LORY TREVINO M.D[facility] (PCP) 2-3 Days Home Medications: Reviewed Scripts Acyclovir (Acyclovir) 400 Mg Tablet 1 TAB PO TID for 10 Days, #30 TAB Prov: ALE GRIFFIN MD-ER 03/29/19 ALE GRIFFIN MD-ER Mar 29, 2019 14:00 (Please note that portions of this note were completed with a voice recognition program. Efforts were made to edit the dictations but occasionally words are mis-transcribed.) Electronically Signed by: ALE GRIFFIN MD 03/29/19 1412 ALE GRIFFIN MD [id number] cc: Normal [facility] HISTORY PRESENT ILLNESSon HISTORY PRESENT ILLNESS Name: RAIMUNDO RHODES : 1985 Unit #: [id number] Age: 33 Family Physician: Pt Location: ER Arrival Date 12/24/18 - 917 ER Physician: DALLAS VIDAL MD [facility] EMERGENC[facility] ROOM History Present Illness General Time Patient Was Seen: 09:30 Brought By: Mother Mode of Arrival: Ambulatory History of Present Illness Stated Complaint: fever blisters and congestion Initial Comments 33 yo F presents w/ c/o fever, sore throat, and mouth blisters, and congestion since saturday. Pt reports that [place] [facility] [place] and had a negative strep screen. Pt reports that she was sent home with a mouth wash which hasnt been helping much and she feels the mouth pain is getting worse. Pt denies cp, sob, abdominal pain, SANDERS, rash, or changes in bowel or urinary habits. 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 Social History Marital Status M Smoking Status: Current Everyday Smoker Smoking Duration: 12 Packs Per Day: 1.00 Allergies Allergies: Coded Allergies: No Known Allergies (Verified , 12/24/18) Home Medications Home Medications See Reconcile Meds Review of Systems Constitutional: See HPI Skin: See HPI Ophthalmologic: See HPI ENT: See HPI Respiratory: See HPI Cardiovascular: See HPI Gastrointestinal: See HPI Musculoskeletal: See HPI Hematologic/Lymphatic : See HPI Allergic/Immunologic: See HPI Physical Exam Physical Exam Vital Signs Vital Signs Date Time Temp Pulse Resp B/P (MAP) Pulse Ox O2 Delivery O2 Flow Rate FiO2 12/24/18 09:28 97.7 73 20 129/74 (92) 98 Room Air General Appearance: No apparent distress HEENT: PERRL, TMs normal, Pharyngeal erythema, Other - no tonsilar exudate or edema, multiple small white mouth lesions as well as on tongue with erythematous base, unable to be scraped, lesions appear to be aphtous ulcers, + nasal drainage present Neck: Normal Inspection, Soft and Supple, No Nodes Respiratory: Normal inspection, Easy effort, Good inspiratory effort, Good expiratory effort, No accessory muscle use, Chest non-tender, No dullness w/percussion, Lungs clear Cardiovascular: Regular rate and rhythm, No murmur, No gallops, No rubs, No JVD, No edema Gastrointestinal: Soft, Non-tender, Nondistended Musculoskeletal: Normal inspection Skin: Normal color, Warm/dry, No rash - no rash on hands or feet or in interdigital regions, No acute lesions Course of Treatment Progress Progress: Condition unchanged Progress Comments 33 yo F presents with c/o mouth sores and URI symptoms. Stable vitals. +nasal drainage and multiple mouth lesions consistent with aphtous ulcers. No rash on hands and feet. Pt advised to continue her mouth wash and take motrin or tylenol as needed for pain and to f/u w/ PCP or come back to ER for any worsening symptoms. Pt voiced understanding and agreed with plan. Departure Departure Disposition: Home Diagnosis: Primary Impression: URI, acute Additional Impression: Aphthous ulcer Condition: Good Patient Instructions: Canker Sores (ED), Upper Respiratory Infection (ED) Additional Instructions: You were seen for cold like symptoms and mouth sores. Your soars appear to be canker sores which usually get better over a few days on their own but the mouth wash and motrin should help with pain and inflammation. Please follow up with your family doctor within the next 2-3 days or come back to the ER for any worsening symptoms. Blood Pressure Elevated: No Home Medications: Reviewed DALLAS VIDAL MD Dec 24, 2018 09:55 Electronically Signed by: DALLAS VIDAL MD 12/27/18 1329 DALLAS VIDAL MD [phone] cc: Normal [facility] C-Reactive Proteinon 019 CRP [Mass/Vol] 13.5 mg/L High 0.0-10.0 [facility] Comment on above: Order Comment: Testi ng performed at [facility], [address] [place] [address] [place] Order: [id number] Cyclic Citrulline Peptide AB on 09-29-2018 CCP IgG >300.0 High 0.0-2.9 [facility] Comment on above: Order Comment: Tests performed by: [facility]CL[facility] #[id number], [address] [place], [address], [place] Order: [id number] Result Comment: Nega tive: 0.0-2.9 U/mL Positive: >2.9 U/mL RA Factoron 09-29-2018 RA Factor 264 IU/mL High 0-15 [facility] Comment on above: Order Comment: Tests performed by: [facility] #[id number], [address] [place], [address], [place] Order: [id number] VU VENOUS DUPLEX LOWER EXT U NILAT RIGHTon 09-29-2018 VU VENOUS DUPLEX LOWER EXT UNILAT RIGHT Patient Name: RAIMUNDO RHODES Patient Patient : 1985 Examination: VU VENOUS DUPLEX LOWER EXT UNILAT RIGHT Date of Exam: 09/29/2018 4:37 PM Ordering Provider: LIDA MALONE NP Comparison: None Relevant Clinical Information: Pain in right leg TECHNIQUE: Real-time grayscale and Doppler, including color and spectral Doppler imaging was performed of the lower extremity deep venous structures. DISCUSSION: RIGHT LOWER EXTREMITY VENOUS STRUCTURES: Common femoral: Patent. Femoral: Patent. Popliteal: Patent. Posterior tibial: Patent. Great saphenous: Patent. IMPRESSION: Negative lower extremity examination. Professional Interpretation by Radiology Electronically Signed By: Milena Matthew MD On: 09/29/2018 4:47 PM Normal [facility] B-type Natriuretic peptideon 09-09-2018 Natriuretic peptide B (Bld) [Mass/Vol] pg/mL Normal <101 [facility] Comment on above: Order Comment: Testi ng performed at [facility], [address] [place] [address] [place] Order: [id number] Basic Metabolic Profileon Anion gap [Moles/Vol] 13 mmol/L Normal 12-20 [facility] Comment on above: Order Comment: Testi ng performed at [facility], [address] [place] [address] [place] Order: [id number] Calcium [Mass/Vol] 9.8 mg/dL Normal 8.4-10.2 [facility] Comment on above: Order Comment: Testi ng performed at [facility], [address] [place], [place] [address] Host Order: [id number] Chloride [Moles/Vol] 101 mmol/L Normal 98-107 [facility] Comment on above: Order Comment: Testi ng performed at [facility], [address] [place], [place] [address] Host Order: [id number] Creatinine [Mass/Vol] 0.6 mg/dL Normal 0.6-1.2 [facility] Comment on above: Order Comment: Test[facility] ng [facility], [address] [place] [address] [place] Order: [id number] Glucose [Mass/Vol] 93 mg/dL Normal 74-106 [facility] Comment on above: Order Comment: Testi ng performed at [facility], [address] [place], [place] [address] Host Order: [id number] Potassium [Moles/Vol] 3.9 mmol/L Normal 3.3-4.9 [facility] Comment on above: Order Comment: Testi ng performed at [facility], [address] [place] [address] Host Order: [id number] Sodium [Moles/Vol] 139 mmol/L Normal 137-145 [facility] Comment on above: Order Comment: Testi ng [facility] at [facility] [facility], [address] [place] [address] Host Order: [id number] Total CO2 29.0 mEq/L Normal 22.0-30.0 [facility] Comment on above: Order Comment: Testi ng performed at [facility], [address] [place] [address] Host Order: [id number] Urea nitrogen [Mass/Vol] 16 mg/dL Normal 8-19 [facility] Comment on above: Order Comment: [facility], [address] [place] [address] Host Order: [id number] CBC w/Auto Diffon 09-09-2018 Basophils (Bld) [#/Vol] 0.03 10*3/uL Normal 0.00-0.10 [facility] Comment on above: Order Comment: Immature Gran parameters reflect the combination of Metas, Myelos, and Promyelocytes and should be used in conjunction with other current indicators for the diagnosis of infection/inflammation. Bands are not included in the Immature Gran parameters. They are included with the Neutrophil parameters. Nucleated RBCs are counted separately from the WBCs. Corrected WBC is no longer indicated. Testing performed at [facility], [address] [place], [place] [id number] Host Order: [id number] Basophils/100 WBC (Bld) 0.3 % Normal 0.1-1.2 [facility] Comment on above: Order Comment: Immature Gran parameters reflect the combination of Metas, Myelos, and Promyelocytes and should be used in conjunction with other current indicators for the diagnosis of infection/inflammation. Bands are not included in the Immature Gran parameters. They are included with the Neutrophil parameters. Nucleated RBCs are counted separately from the WBCs. Corrected WBC is no longer indicated. Testing performed at [facility], [address] [place] [address] Host Order: [id number] Eosinophils (Bld) [#/Vol] 0.11 10*3/uL Normal 0.00-0.40 [facility] Comment on above: Order Comment: Immature Gran parameters reflect the combination of Metas, Myelos, and Promyelocytes and should be used in conjunction with other current indicators for the diagnosis of infection/inflammation. Bands are not included in the Immature Gran parameters. They are included with the Neutrophil parameters. Nucleated RBCs are counted separately from the WBCs. Corrected WBC is no longer indicated. Testing performed at [facility], [address] [place] [address] Host Order: [id number] Eosinophils/100 WBC (Bld) 1.1 % Normal 0.7-5.8 [facility] Comment on above: Order Comment: Immature Gran parameters reflect the combination of Metas, Myelos, and Promyelocytes and should be used in conjunction with other current indicators for the diagnosis of infection/inflammation. Bands are not included in the Immature Gran parameters. They are included with the Neutrophil parameters. Nucleated RBCs are counted separately from the WBCs. Corrected WBC is no longer indicated. Testing performed at [facility], [address] [place] [address] Host Order: [id number] Erythrocyte distribution width (RBC) [Ratio] 13.1 % Normal 11.7-14.4 [facility] Comment on above: Order Comment: Immature Gran parameters reflect the combination of Metas, Myelos, and Promyelocytes and should be used in conjunction with other current indicators for the diagnosis of infection/inflammation. Bands are not included in the Immature Gran parameters. They are included with the Neutrophil parameters. Nucleated RBCs are counted separately from the WBCs. Corrected WBC is no longer indicated. Testing performed at [facility], [address] [place], [place] [id number] Host Order: [id number] Hematocrit (Bld) [Volume fraction] 40.9 % Normal 34.1-44.9 [facility] Comment on above: Order Comment: Immature Gran parameters reflect the combination of Metas, Myelos, and Promyelocytes and should be used in conjunction with other current indicators for the diagnosis of infection/inflammation. Bands are not included in the Immature Gran parameters. They are included with the Neutrophil parameters. Nucleated RBCs are counted separately from the WBCs. Corrected WBC is no longer indicated. Testing performed at [facility], [address] [place] [address] Host Order: [id number] Hemoglobin (Bld) [Mass/Vol] 13.9 g/dL Normal 11.2-15.7 [facility] Comment on above: Order Comment: Immature Gran parameters reflect the combination of Metas, Myelos, and Promyelocytes and should be used in conjunction with other current indicators for the diagnosis of infection/inflammation. Bands are not included in the Immature Gran parameters. They are included with the Neutrophil parameters. Nucleated RBCs are counted separately from the WBCs. Corrected WBC is no longer indicated. Testing performed at [facility], [address] [place] [address] Host Order: [id number] Immature Gran % 0.4 % Normal 0.0-0.4 [facility] Comment on above: Order Comment: Immature Gran parameters reflect the combination of Metas, Myelos, and Promyelocytes and should be used in conjunction with other current indicators for the diagnosis of infection/inflammation. Bands are not included in the Immature Gran parameters. They are included with the Neutrophil parameters. Nucleated RBCs are counted separately from the WBCs. Corrected WBC is no longer indicated. Testing performed at [facility] [place] [facility], [address] [place], [place] [address] Host Order: [id number] Immature Gran Count 0.04 10*3/uL High 0.00-0.00 [facility] Comment on above: Order Comment: Immature Gran parameters reflect the combination of Metas, Myelos, and Promyelocytes and should be used in conjunction with other current indicators for the diagnosis of infection/inflammation. Bands are not included in the Immature Gran parameters. They are included with the Neutrophil parameters. Nucleated RBCs are counted separately from the WBCs. Corrected WBC is no longer indicated. Testing performed at [facility], [address] [place] [address] Host Order: [id number] Lymphocytes (Bld) [#/Vol] 1.73 10*3/uL Normal 1.20-3.70 [facility] Comment on above: Order Comment: Immature Gran parameters reflect the combination of Metas, Myelos, and Promyelocytes and should be used in conjunction with other current indicators for the diagnosis of infection/inflammation. Bands are not included in the Immature Gran parameters. They are included with the Neutrophil parameters. Nucleated RBCs are counted separately from the WBCs. Corrected WBC is no longer indicated. Testing performed at [facility], [address] [place] [address] Host Order: [id number] Lymphocytes/100 WBC (Bld) 18.0 % Low 19.3-51.7 [facility] Comment on above: Order Comment: Immature Gran parameters reflect the combination of Metas, Myelos, and Promyelocytes and should be used in conjunction with other current indicators for the diagnosis of infection/inflammation. Bands are not included in the Immature Gran parameters. They are included with the Neutrophil parameters. Nucleated RBCs are counted separately from the WBCs. Corrected WBC is no longer indicated. Testing performed at [facility], [address] [place] [address] Host Order: [id number] MCH (RBC) [Entitic mass] 31.6 pg Normal 25.6-32.2 [facility] Comment on above: Order Comment: Immature Gran parameters reflect the combination of Metas, Myelos, and Promyelocytes and should be used in conjunction with other current indicators for the diagnosis of infection/inflammation. Bands are not included in the Immature Gran parameters. They are included with the Neutrophil parameters. Nucleated RBCs are counted separately from the WBCs. Corrected WBC is no longer indicated. Testing performed at [facility], [address] [place], [place] [address] Host Order: [id number] MCHC (RBC) [Mass/Vol] 34.0 g/dL Normal 32.2-35.5 [facility] Comment on above: Order Comment: Immature Gran parameters reflect the combination of Metas, Myelos, and Promyelocytes and should be used in conjunction with other current indicators for the diagnosis of infection/inflammation. Bands are not included in the Immature Gran parameters. They are included with the Neutrophil parameters. Nucleated RBCs are counted separately from the WBCs. Corrected WBC is no longer indicated. Testing performed at [facility], [address] [place] [address] Host Order: [id number] MCV (RBC) [Entitic vol] 93.0 fL Normal 79.4-94.8 [facility] Comment on above: Order Comment: Immature Gran parameters reflect the combination of Metas, Myelos, and Promyelocytes and should be used in conjunction with other current indicators for the diagnosis of infection/inflammation. Bands are not included in the Immature Gran parameters. They are included with the Neutrophil parameters. Nucleated RBCs are counted separately from the WBCs. Corrected WBC is no longer indicated. Testing performed at [facility], [address] [place] [address] Host Order: [id number] Monocytes (Bld) [#/Vol] 0.54 10*3/uL Normal 0.20-0.90 [facility] Comment on above: Order Comment: Immature Gran parameters reflect the combination of Metas, Myelos, and Promyelocytes and should be used in conjunction with other current indicators for the diagnosis of infection/inflammation. Bands are not included in the Immature Gran parameters. They are included with the Neutrophil parameters. Nucleated RBCs are counted separately from the WBCs. Corrected WBC is no longer indicated. Testing performed at [facility], [address] [place] [address] Host Order: [id number] Monocytes/100 WBC (Bld) 5.6 % Normal 4.7-12.5 [facility] Comment on above: Order Comment: Immature Gran parameters reflect the combination of Metas, Myelos, and Promyelocytes and should be used in conjunction with other current indicators for the diagnosis of infection/inflammation. Bands are not included in the Immature Gran parameters. They are included with the Neutrophil parameters. Nucleated RBCs are counted separately from the WBCs. Corrected WBC is no longer indicated. Testing performed at [facility], [address] [place] [address] Host Order: [id number] Neutrophils (Bld) [#/Vol] 7.17 10*3/uL High 1.60-6.10 [facility] Comment on above: Order Comment: Immature Gran parameters reflect the combination of Metas, Myelos, and Promyelocytes and should be used in conjunction with other current indicators for the diagnosis of infection/inflammation. Bands are not included in the Immature Gran parameters. They are included with the Neutrophil parameters. Nucleated RBCs are counted separately from the WBCs. Corrected WBC is no longer indicated. Testing performed at [facility], [address] [place] [address] Host Order: [id number] Neutrophils/100 WBC (Bld) 74.6 % High 34.0-71.1 [facility] Comment on above: Order Comment: Immature Gran parameters reflect the combination of Metas, Myelos, and Promyelocytes and should be used in conjunction with other current indicators for the diagnosis of infection/inflammation. Bands are not included in the Immature Gran parameters. They are included with the Neutrophil parameters. Nucleated RBCs are counted separately from the WBCs. Corrected WBC is no longer indicated. [place] [address] Host Order: [id number] Nucleated RBC (Bld) [#/Vol] 0.00 10*3/uL Normal 0.00-0.00 [facility] Comment on above: Order Comment: Immature Gran parameters reflect the combination of Metas, Myelos, and Promyelocytes and should be used in conjunction with other current indicators for the diagnosis of infection/inflammation. Bands are not included in the Immature Gran parameters. They are included with the Neutrophil parameters. Nucleated RBCs are counted separately from the WBCs. Corrected WBC is no longer indicated. Testing performed at [facility], [address] [place] [address] Host Order: [id number] Nucleated RBC/100 WBC (Bld) [Ratio] 0.0 /100{WBC} Normal 0.0-0.2 [facility] Comment on above: Order Comment: Immature Gran parameters reflect the combination of Metas, Myelos, and Promyelocytes and should be used in conjunction with other current indicators for the diagnosis of infection/inflammation. Bands are not included in the Immature Gran parameters. They are included with the Neutrophil parameters. Nucleated RBCs are counted separately from the WBCs. Corrected WBC is no longer indicated. Testing performed at [address], [place] [address] Host Order: [id number] Platelet mean volume (Bld) [Entitic vol] 10.9 fL Normal 9.4-12.3 [facility] Comment on above: Order Comment: Immature Gran parameters reflect the combination of Metas, Myelos, and Promyelocytes and should be used in conjunction with other current indicators for the diagnosis of infection/inflammation. Bands are not included in the Immature Gran parameters. They are included with the Neutrophil parameters. Nucleated RBCs are counted separately from the WBCs. Corrected WBC is no longer indicated. Testing performed at [facility], [address] [place], [place] [address] Host Order: [id number] Platelets (Bld) [#/Vol] 229 10*3/uL Normal 182-369 [facility] Comment on above: Order Comment: Immature Gran parameters reflect the combination of Metas, Myelos, and Promyelocytes and should be used in conjunction with other current indicators for the diagnosis of infection/inflammation. Bands are not included in the Immature Gran parameters. They are included with the Neutrophil parameters. Nucleated RBCs are counted separately from the WBCs. Corrected WBC is no longer indicated. Testing performed at [facility], [address] [place] [address] Host Order: [id number] RBC (Bld) [#/Vol] 4.40 10*6/uL Normal 3.93-5.22 [facility] Comment on above: Order Comment: Immature Gran parameters reflect the combination of Metas, Myelos, and Promyelocytes and should be used in conjunction with other current indicators for the diagnosis of infection/inflammation. Bands are not included in the Immature Gran parameters. They are included with the Neutrophil parameters. Nucleated RBCs are counted separately from the WBCs. Corrected WBC is no longer indicated. Testing performed at [facility], [address] [place] [address] Host Order: [id number] RDW-SD 44.4 fL Normal 36.4-46.3 [facility] Comment on above: Order Comment: Immature Gran parameters reflect the combination of Metas, Myelos, and Promyelocytes and should be used in conjunction with other current indicators for the diagnosis of infection/inflammation. Bands are not included in the Immature Gran parameters. They are included with the Neutrophil parameters. Nucleated RBCs are counted separately from the WBCs. Corrected WBC is no longer indicated. Testing performed at [facility], [address] [place] [address] Host Order: [id number] WBC (Bld) [#/Vol] 9.6 10*3/uL Normal 4.0-10.0 [facility] Comment on above: Order Comment: Immature Gran parameters reflect the combination of Metas, Myelos, and Promyelocytes and should be used in conjunction with other current indicators for the diagnosis of infection/inflammation. Bands are not included in the Immature Gran parameters. They are included with the Neutrophil parameters. Nucleated RBCs are counted separately from the WBCs. Corrected WBC is no longer indicated. Testing performed at [facility], [address] [place], [place] [address] Host Order: [id number] CHEST PA AP LAT 2 VIEWSon CHEST PA AP LAT 2 VIEWS Patient Name: RAIMUNDO RHODES Patient Patient : 1985 Examination: CHEST PA AP LAT 2 VIEWS Date of Exam: 09/09/2018 5:29 PM Ordering Provider: CHI DIEGO MD Comparison: None Relevant Clinical Information: CHEST PAIN, UNSPECIFIED NUMBER OF VIEWS: 2 DISCUSSION: Lungs / pleura: No pneumonia or pleural effusions. Heart / mediastinum: Normal. Bones: No acute osseous findings IMPRESSION: No active disease. Professional Interpretation by Radiology Electronically Signed By: Mahesh Landry MD On: 09/09/2018 5:41 PM Normal [facility] D-Dimer, [place] 09-09-2018 D-Dimer, Quant 357 ng/mL Normal <400 [facility] Comment on above: Order Comment: Testi ng performed at [facility], [address] [place], [place] [address] Host Order: [id number] EST Glomerular Filtration Ra l[place] 09-09-2018 GFR/1.73 sq M predicted among non-blacks MDRD (S/P/Bld) [Vol rate/Area] mL/min/{1.73_m2} Normal >60 [facility] Comment on above: Order Comment: Kevin holcomb Order: [id number] The calculated GFR uses the (IDMS)-traceable creatinine MDRD equation and is reported in mL/min/1.73 square meters. This formula is not recommended for use with individuals with unstable creatinine concentrations, extremes in muscle mass and/or body size, or alternative diets and may not be suitable for all patient populations. Testing performed at [facility], [address] [place] [address] Result Comment: The reported eGFR is based on a non- patient, for Americans multiply the result by 1.212. Troponin Ion 09-09-2018 Troponin I.cardiac [Mass/Vol] ng/mL Normal 0.00-0.12 [facility] Comment on above: Order Comment: Testi ng performed at [facility], [address] [place], [place] [address] Host Order: [id number] Result Comment: AMI diagnostic cut-off is 0.120 ng/mL. The Troponin I Reference Range is based upon [employer] Immunodiagnostic clinical study. The 99th Percentile upper reference limit is 0.034 ng/mL. Troponin I appears to be elevated only in diseases that directly involve the heart. Interpretation of Troponin I results should be done only in the context of the overall clinical picture, e.g., clinical history, EKG, and other lab tests. Biotin (Vitamin B7) levels higher than the recommended daily allowance (0.03mg) may cause falsely decreased values. Cult,Urine,CCon 08-16-2018 Cult,Urine,CC Specimen Description .CLEAN CATCH URINE Special Requests NOT REPORTED Culture NO SIGNIFICANT GROWTH Report Status FINAL 08/16/2018 [facility] Comment on above: Performed By: #### C OLI #### [employer] [facility] [place] [address] Duct Installer: Bebo Sarmiento MD Comp Metabolic Profon 2018 (cont.) [facility] Comment on above: Result Comment: Aver age GFR for 30-39 years old: 107 mL/min/1.73sq m Chronic Kidney Disease: <60 mL/min/1.73sq m Kidney failure: <15 mL/min/1.73sq m eGFR calculated using average adult body mass. Additional eGFR calculator available at: http://www.[employer]/multiple_crcl_2012.htm Performed By: #### C DP, CP, LIPR, TSHX #### [address] [address] Duct Installer: Bebo Sarmiento MD Albumin [Mass/Vol] 4.4 g/dL Normal 3.5-5.2 [facility] Comment on above: Performed By: #### C DP, CP, LIPR, TSHX #### [address] [address] Duct Installer: Bebo Sarmiento MD Albumin/Globulin [Mass ratio] 1.9 {ratio} Normal 1.0-2.5 [facility] Comment on above: Performed By: #### C DP, CP, LIPR, TSHX #### [address] [address] Duct Installer: Bebo Sarmiento MD Alkaline Phos 80 U/L Normal 35-104 [facility] Comment on above: Performed By: #### C DP, CP, LIPR, TSHX #### [address] [address] Duct Installer: Bebo Sarmiento MD ALT [Catalytic activity/Vol] 17 U/L Normal 5-33 [facility] Comment on above: Performed By: #### C DP, CP, LIPR, TSHX #### [address] [address] Duct Installer: Bebo Sarmiento MD Anion gap [Moles/Vol] 14 mmol/L Normal 9-[address] [facility] Comment on above: Performed By: #### C DP, CP, LIPR, TSHX #### [address] [address] Duct Installer: Bebo Sarmiento MD AST [Catalytic activity/Vol] 11 U/L Normal <32 [facility] Comment on above: Performed By: #### C DP, CP, LIPR, TSHX #### [address] [address] Duct Installer: Bebo Sarmiento MD Bilirubin Ql (U) 0.21 mg/dL Low 0.3-1.2 [facility] Comment on above: Performed By: #### C DP, CP, LIPR, TSHX #### [place] [address] Duct Installer: Bebo Sarmiento MD Calcium [Mass/Vol] 9.5 mg/dL Normal 8.6-10.4 [facility] Comment on above: Performed By: #### C DP, CP, LIPR, TSHX #### [place] [address] Duct Installer: Bebo Sarmiento MD Chloride [Moles/Vol] 101 mmol/L Normal 98-107 [facility] Comment on above: Performed By: #### C DP, CP, LIPR, TSHX #### [address] [address] Duct Installer: Bebo Sarmiento MD CO2 [Moles/Vol] 24 mmol/L Normal 20-31 [facility] Comment on above: Performed By: #### C DP, CP, LIPR, TSHX #### [place] [address] Duct Installer: Bebo Sarmiento MD Creatinine [Mass/Vol] 0.53 mg/dL Normal 0.50-0.[address] [facility] Comment on above: Performed By: #### C DP, CP, LIPR, TSHX #### [address] [address] Duct Installer: Bebo Sarmiento MD GFR, Amer >60 Normal >60 [facility] Comment on above: Performed By: #### C DP, CP, LIPR, TSHX #### [address] [address] Duct Installer: Bebo Sarmiento MD GFR,non Amer >60 Normal >60 [facility] Comment on above: Performed By: #### C DP, CP, LIPR, TSHX #### [address] [address] Duct Installer: Bebo Sarmiento MD Glucose [Mass/Vol] 91 mg/dL Normal 70-99 [facility] Comment on above: Performed By: #### C DP, CP, LIPR, TSHX #### [address] [address] Duct Installer: Bebo Sarmiento MD Potassium [Moles/Vol] 4.8 mmol/L Normal 3.7-5.[address] [facility] Comment on above: Performed By: #### C DP, CP, LIPR, TSHX #### [address] [address] Duct Installer: Bebo Sarmiento MD Protein [Mass/Vol] 6.7 g/dL Normal 6.4-8.3 [facility] Comment on above: Performed By: #### C DP, CP, LIPR, TSHX #### [address] [address] Duct Installer: Bebo Sarmiento MD Sodium [Moles/Vol] 139 mmol/L Normal 135-144 [facility] Comment on above: Performed By: #### C DP, CP, LIPR, TSHX #### [address] [address] Duct Installer: Bebo Sarmiento MD Urea nitrogen [Mass/Vol] 13 mg/dL Normal 6-20 [facility] Comment on above: Performed By: #### C DP, CP, LIPR, TSHX #### [facility] [employer] [address] [place] [address] [id number] Duct Installer: Bebo Sarmiento MD Lipid Profileon 08-15-2018 Cholesterol [Mass/Vol] 265 mg/dL High <200 [facility] Comment on above: Result Comment: Cholesterol Guidelines: <200 Desirable 200-240 Borderline >240 Undesirable Performed By: #### C DP, CP, LIPR, TSHX #### [facility] [employer] [address] [place] [address] Duct Installer: Bebo Sarmiento MD Cholesterol in HDL [Mass/Vol] 31 mg/dL Low >40 [facility] Comment on above: Result Comment: HDL Guidelines: <40 Undesirable 40-59 Borderline >59 Desirable Performed By: #### C DP, CP, LIPR, TSHX #### [address] [address] Duct Installer: Bebo Sarmiento MD Cholesterol in LDL [Mass/Vol] 182 mg/dL High 0-130 [facility] Comment on above: Result Comment: LDL Guidelines: <100 Desirable 100-129 Near to/above Desirable 130-159 Borderline >159 Undesirable Direct (measured) LDL and calculated LDL are not interchangeable tests. Performed By: #### C DP, CP, LIPR, TSHX #### [facility] [employer] [address] [place] [address] Duct Installer: Bebo Sarmiento MD Cholesterol.total/Chol esterol in HDL [Mass ratio] 8.5 {ratio} High <5 [facility] Comment on above: Performed By: #### C DP, CP, LIPR, TSHX #### [facility] [address] [place] [address] Duct Installer: Bebo Sarmiento MD Triglyceride [Mass/Vol] 258 mg/dL High <150 [facility] Comment on above: Result Comment: Triglyceride Guidelines: <150 Desirable 150-199 Borderline 200-499 High >499 Very high Based on AHA Guidelines for fasting triglyceride, December 2011. Performed By: #### C DP, CP, LIPR, TSHX #### [address] [address] Duct Installer: Bebo Sarmiento MD TSH w/reflex to FT4on 2018 TSH Qn 2.50 m[IU]/L Normal 0.30-5.00 [facility] Comment on above: Performed By: #### C DP, CP, LIPR, TSHX #### [address] [address] Duct Installer: Bebo Sarmiento MD Urinalysis,Microon 9 ----- Normal [facility] Comment on above: Performed By: #### U CANDICE, UAX #### [address] [address] Duct Installer: Bebo Sarmiento MD Bacteria LM.HPF (Urine sed) [#/Area] MANY Abnormal NONE [facility] Comment on above: Performed By: #### U CANDICE, UAX #### [address] [address] Duct Installer: Bebo Sarmiento MD Casts LM.LPF (Urine sed) [#/Area] 5 TO 10 HYALINE Normal 0-8 [facility] Comment on above: Result Comment: Refe rence range defined for non-centrifuged specimen. Performed By: #### U CANDICE, UAX #### [address] [address] Duct Installer: Bebo Sarmiento MD Epithelial cells LM.HPF (Urine sed) [#/Area] 10 TO 20 Normal 0-5 [facility] Comment on above: Performed By: #### U GINAO, UAX #### [address] [address] Duct Installer: Bebo Sarmiento MD RBC (U) [#/Vol] 2 TO 5 Normal 0-4 [facility] Comment on above: Result Comment: Refe rence range defined for non-centrifuged specimen. Performed By: #### U CANDICE UAX #### [place] [address] Duct Installer: Bebo Sarmiento MD WBC (U) [#/Vol] 20 TO 50 Normal 0-5 [facility] Comment on above: Performed By: #### U CANDICE UAX #### [place] [address] Duct Installer: Bebo Sarmiento MD CBC with Diffon 08-14-2018 Abs. Basophil 0.05 k/uL Normal 0.00-0.20 [facility] Comment on above: Performed By: #### C DP, CP, LIPR, TSHX #### [place] [address] Duct Installer: Bebo Sarmiento MD Abs.Imm.Granulocyte 0.03 k/uL Normal 0.00-0.30 [facility] Comment on above: Performed By: #### C DP, CP, LIPR, TSHX #### [place] [address] Duct Installer: Bebo Sarmiento MD Abs.Neutrophil (Seg) 6.32 k/uL Normal 1.50-8.10 [facility] Comment on above: Performed By: #### C DP, CP, LIPR, TSHX #### [place] [address] Duct Installer: Bebo Sarmiento MD Basophils/100 WBC (Bld) 1 % Normal 0-2 [facility] Comment on above: Performed By: #### C DP, CP, LIPR, TSHX #### [place] [address] Duct Installer: Bebo Sarmiento MD Eosinophils (Bld) [#/Vol] 0.08 10*3/uL Normal 0.00-0.44 [facility] Comment on above: Performed By: #### C DP, CP, LIPR, TSHX #### [place] [address] Duct Installer: Bebo Sarmiento MD Eosinophils/100 WBC (Bld) 1 % Normal 1-4 [facility] Comment on above: Performed By: #### C DP, CP, LIPR, TSHX #### [place] [address] Duct Installer: Bebo Sarmiento MD Erythrocyte distribution width (RBC) [Ratio] 13.0 % Normal 11.8-14.4 [facility] Comment on above: Performed By: #### C DP, CP, LIPR, TSHX #### [place] [address] Duct Installer: Bebo Sarmiento MD Hematocrit (Bld) [Volume fraction] 43.2 % Normal 36.3-47.1 [facility] Comment on above: Performed By: #### C DP, CP, LIPR, TSHX #### [place] [address] Duct Installer: Bebo Sarmiento MD Hemoglobin (Bld) [Mass/Vol] 14.0 g/dL Normal 11.9-15.1 [facility] Comment on above: Performed By: #### C DP, CP, LIPR, TSHX #### [place] [address] Duct Installer: Bebo Sarmiento MD Immature granulocytes (Bld) [#/Vol] 0 % Normal 0 [facility] Comment on above: Performed By: #### C DP, CP, LIPR, TSHX #### [address] [address] Duct Installer: Bebo Sarmiento MD Lymphocytes (Bld) [#/Vol] 1.96 10*3/uL Normal 1.10-3.70 [facility] Comment on above: Performed By: #### C DP, CP, LIPR, TSHX #### [address] [address] Duct Installer: Bebo Sarmiento MD Lymphocytes/100 WBC (Bld) 21 % Low 24-43 [facility] Comment on above: Performed By: #### C DP, CP, LIPR, TSHX #### [address] [address] Duct Installer: Bebo Sarmiento MD MCH (RBC) [Entitic mass] 31.3 pg Normal 25.2-33.5 [facility] Comment on above: Performed By: #### C DP, CP, LIPR, TSHX #### [address] [address] Duct Installer: Bebo Sarmiento MD MCHC (RBC) [Mass/Vol] 32.4 g/dL Normal 28.4-34.[address] [facility] Comment on above: Performed By: #### C DP, CP, LIPR, TSHX #### [address] [address] Duct Installer: Bebo Sarmiento MD MCV (RBC) [Entitic vol] 96.4 fL Normal 82.6-102.9 [facility] Comment on above: Performed By: #### C DP, CP, LIPR, TSHX #### [address] [address] Duct Installer: Bebo Sarmiento MD Monocytes (Bld) [#/Vol] 0.81 10*3/uL Normal 0.10-1.20 [facility] Comment on above: Performed By: #### C DP, CP, LIPR, TSHX #### [address] [address] Duct Installer: Bebo Sarmiento MD Monocytes/100 WBC (Bld) 9 % Normal 3-12 [facility] Comment on above: Performed By: #### C DP, CP, LIPR, TSHX #### [address] [address] Duct Installer: Bebo Sarmiento MD Neutrophil (Seg) 68 % High 36-65 [facility] Comment on above: Performed By: #### C DP, CP, LIPR, TSHX #### [address] [address] Duct Installer: Bebo Sarmiento MD NRBC Automated 0.0 per 100 WBC Normal 0.0 [facility] Comment on above: Performed By: #### C DP, CP, LIPR, TSHX #### [address] [address] Duct Installer: Bebo Sarmiento MD Platelet mean volume (Bld) [Entitic vol] 12.1 fL Normal 8.1-13.5 [facility] Comment on above: Performed By: #### C DP, CP, LIPR, TSHX #### [address] [address] Duct Installer: Bebo Sarmiento MD Platelets (Bld) [#/Vol] 236 10*3/uL Normal 138-453 [facility] Comment on above: Performed By: #### C DP, CP, LIPR, TSHX #### [address] [address] Duct Installer: Bebo Sarmiento MD RBC (Bld) [#/Vol] 4.48 10*6/uL Normal 3.95-5.11 [facility] Comment on above: Performed By: #### C DP, CP, LIPR, TSHX #### [address] [address] Duct Installer: Bebo Sarmiento MD WBC (Bld) [#/Vol] 9.3 10*3/uL Normal 3.5-11.3 [facility] Comment on above: Performed By: #### C DP, CP, LIPR, TSHX #### [address] [address] Duct Installer: Bebo Sarmiento MD Auto Diff Performed NOT REPORTED Normal [facility] Comment on above: Performed By: #### C DP, CP, LIPR, TSHX #### [address] [address] Duct Installer: Bebo Sarmiento MD Platelets (Bld) [#/Vol] NOT REPORTED Normal [facility] Comment on above: Performed By: #### C DP, CP, LIPR, TSHX #### [address] [address] Duct Installer: Bebo Sarmiento MD RBC morphology finding Nom (Bld) NOT REPORTED Normal [facility] Comment on above: Performed By: #### C DP, CP, LIPR, TSHX #### [address] [address] Duct Installer: Bebo Sarmiento MD WBC Morphology NOT REPORTED Normal [facility] Comment on above: Performed By: #### C DP, CP, LIPR, TSHX #### [address] [address] Duct Installer: Bebo Sarmiento MD [facility]acon 08-14-2018 Cholesterol [Mass/Vol] 265 mg/dL High (<200) [facility] Work Phone: Comment on above: Note: Cholesterol Gu idelines: <200 Desirable 200-240 Borderline >240 Undesirable Responsible Observer: CHLOE AUTOFILE ([id number]) Triglyceride [Mass/Vol] 258 mg/dL High (<150) [facility] Work Phone: Comment on above: Note: Triglyceride G uidelines: <150 Desirable 150-199 Borderline 200-499 High >499 Very high Based on AHA Guidelines for fasting triglyceride, December 2011. Responsible Observer: CEEV AUTOFILE ([id number]) Comp Metabolic Profon 2018 BUN/CRE Ratio NOT REPORTED Normal - [facility] Comment on above: Performed By: #### C DP, CP, LIPR, TSHX #### [facility] [address] [place], [place] [id number] Duct Installer: Bebo Sarmiento MD Staging: NOT REPORTED Normal [facility] Comment on above: Performed By: #### C DP, CP, LIPR, TSHX #### [facility] [address] [place], [place] [phone] Duct Installer: Bebo Sarmiento MD Hematologyon 08-14-2018 Basophils/100 WBC (Bld) 1 % (0-2) [facility] Work Phone: Comment on above: Note: Responsible Ob room service food server: XNV AUTOFILE (3018) Eosinophils (Bld) [#/Vol] 0.08 10*3/uL (0.00-0.44) [facility] Work Phone: [phone] Comment on above: Note: Responsible Ob room service food server: XNV AUTOFILE (3018) Eosinophils/100 WBC (Bld) 1 % (1-4) [facility] Work Phone: [phone] Comment on above: Note: Responsible Ob room service food server: XNV AUTOFILE (3018) Hematocrit (Bld) [Volume fraction] 43.2 % (36.3-47.1) [facility] Work Phone: Comment on above: Note: Responsible Ob room service food server: XNV AUTOFILE (3018) Hemoglobin (Bld) [Mass/Vol] Negative (NEG) [facility] Work Phone: Comment on above: Note: Responsible Ob room service food server: TIANNA COSTELLO (909) Hemoglobin (Bld) [Mass/Vol] 14.0 g/dL (11.9-15.1) [facility] Work Phone: Comment on above: Note: Responsible Ob room service food server: XNV AUTOFILE (3018) Lymphocytes (Bld) [#/Vol] 1.96 10*3/uL (1.10-3.70) [facility] Work Phone: Comment on above: Note: Responsible Ob room service food server: XNV AUTOFILE (3018) Lymphocytes/100 WBC (Bld) 21 % Low (24-43) [facility] Work Phone: [phone] Comment on above: Note: Responsible Ob room service food server: XNV AUTOFILE (3018) MCH (RBC) [Entitic mass] 31.3 pg (25.2-33.5) [facility] Work Phone: Comment on above: Note: Responsible Ob room service food server: XNV AUTOFILE (3018) MCV (RBC) [Entitic vol] 96.4 fL (82.6-102.9) [facility] Work Phone: [phone] Comment on above: Note: Responsible Ob room service food server: XNV AUTOFILE (3018) Monocytes (Bld) [#/Vol] 0.81 10*3/uL (0.10-1.20) [facility] Work Phone: [phone] Comment on above: Note: Responsible Ob room service food server: XNV AUTOFILE (3018) Monocytes/100 WBC (Bld) 9 % (3-12) [facility] Work Phone: [phone] Comment on above: Note: Responsible Ob room service food server: XNV AUTOFILE (3018) Platelets (Bld) [#/Vol] NOT REPORTED [facility] Work Phone: [phone] Platelets (Bld) [#/Vol] 236 10*3/uL (138-453) [facility] Work Phone: [phone] Comment on above: Note: Responsible Ob room service food server: XNV AUTOFILE (3018) RBC (Bld) [#/Vol] 4.48 10*6/uL (3.95-5.11) [facility] Work Phone: Comment on above: Note: Responsible Ob room service food server: XNV AUTOFILE (3018) RBC morphology finding Nom (Bld) NOT REPORTED [facility] Work Phone: [phone] WBC (Bld) [#/Vol] 0.0 per_100_WBC (0.0) [facility] Work Phone: [phone] Comment on above: Note: Responsible Ob room service food server: XNV AUTOFILE (3018) WBC (Bld) [#/Vol] 9.3 10*3/uL (3.5-11.3) [facility] Work Phone: [phone] Comment on above: Note: Responsible Ob room service food server: XNV AUTOFILE (3018) Lipid Profileon 08-14-2018 Cholesterol in VLDL [Mass/Vol] NOT REPORTED Normal 04-30 [facility] Comment on above: Performed By: #### C DP, CP, LIPR, TSHX #### [facility] [address] [place], [place] [phone] Duct Installer: Bebo Sarmiento MD Metabolic Panelon 08-14-2018 Albumin [Mass/Vol] 4.4 g/dL (3.5-5.2) [facility] Work Phone: [phone] Comment on above: Note: Responsible Ob room service food server: CEEV AUTOFILE (3003) ALT [Catalytic activity/Vol] 17 U/L (5-33) [facility] Work Phone: [phone] Comment on above: Note: Responsible Ob room service food server: CEEV AUTOFILE (3003) Anion gap [Moles/Vol] 14 mmol/L (9-17) [facility] Work Phone: [phone] Comment on above: Note: Responsible Ob room service food server: CEEV AUTOFILE (3003) AST [Catalytic activity/Vol] 11 U/L (<32) [facility] Work Phone: Comment on above: Note: Responsible Ob room service food server: CEEV AUTOFILE (3003) Bilirubin [Mass/Vol] 0.21 mg/dL Low (0.3-1.2) [facility] Work Phone: Comment on above: Note: Responsible Ob room service food server: CEEV AUTOFILE (3003) Bilirubin.direct [Mass/Vol] Negative (NEG) [facility] Work Phone: Comment on above: Note: Responsible Ob room service food server: TIANNA COSTELLO (909) Calcium [Mass/Vol] 9.5 mg/dL (8.6-10.4) [facility] Work Phone: Comment on above: Note: Responsible Ob room service food server: CEEV AUTOFILE (3003) Chloride [Moles/Vol] 101 mmol/L (98-107) [facility] Work Phone: Comment on above: Note: Responsible Ob room service food server: CEEV AUTOFILE (3003) CO2 [Moles/Vol] 24 mmol/L (20-31) [facility] Work Phone: Comment on above: Note: Responsible Ob room service food server: CEEV AUTOFILE (3003) Creatinine [Mass/Vol] 0.53 mg/dL (0.50-0.90) [facility] Work Phone: Comment on above: Note: Responsible Ob room service food server: CEEV AUTOFILE (3003) Glucose [Mass/Vol] Negative (NEG) [facility] Work Phone: Comment on above: Note: Responsible Ob room service food server: TIANNA COSTELLO (909) Glucose [Mass/Vol] 91 mg/dL (70-99) [facility] Work Phone: Comment on above: Note: Responsible Ob room service food server: CEEV AUTOFILE (3003) Potassium [Moles/Vol] 4.8 mmol/L (3.7-5.3) [facility] Work Phone: Comment on above: Note: Responsible Ob room service food server: CEEV AUTOFILE (3003) Protein [Mass/Vol] 6.7 g/dL (6.4-8.3) [facility] Work Phone: Comment on above: Note: Responsible Ob room service food server: CEEV AUTOFILE (3003) Protein [Mass/Vol] Negative (NEG) [facility] Work Phone: Comment on above: Note: Responsible Ob room service food server: TIANNA COSTELLO (105) Sodium [Moles/Vol] 139 mmol/L (135-144) [facility] Work Phone: Comment on above: Note: Responsible Ob room service food server: CEEV AUTOFILE (3003) Urea nitrogen [Mass/Vol] 13 mg/dL (6-20) [facility] Work Phone: Comment on above: Note: Responsible Ob room service food server: CEEV AUTOFILE (3003) Otheron 08-14-2018 Cult,Urine,CC See Note [facility] Work Phone: Comment on above: Note: Specimen Descr iption .CLEAN CATCH URINESpecial Requests NOT REPORTEDCulture NO SIGNIFICANT GROWTHReport Status FINAL 08/16/2018Responsible Observer: TIANNA COSTELLO ([id number]) Reported Physicians See Note [facility] Work Phone: Comment on above: Note: Reported Physi cians:Ordering: Dennise Gil JAttending: DENNISE GILReferring: DENNISE GIL (cont.) See Note [facility] Work Phone: Comment on above: Note: Average GFR fo r 30-39 years old: 107 mL/min/1.73sq mChronic Kidney Disease: <60 mL/min/1.73sq mKidney failure: <15 mL/min/1.73sq m eGFR calculated using average adult body mass. Additional eGFR calculator available at: http://www.[employer]/multiple_crcl_2012.htm Responsible Observer: ARAVINDEV AUTOFILE (3003) ----- See Note [facility] Work Phone: Comment on above: Note: Responsible Ob room service food server: TIANNA COSTELLO (749) Abs. Basophil 0.05 k/uL (0.00-0.20) [facility] Work Phone: Comment on above: Note: Responsible Ob room service food server: XNV AUTOFILE (3018) Abs.Imm.Granulocyte 0.03 k/uL (0.00-0.30) [facility] Work Phone: [phone] Comment on above: Note: Responsible Ob room service food server: XNV AUTOFILE (3018) Abs.Neutrophil (Seg) 6.32 k/uL (1.50-8.10) [facility] Work Phone: [phone] Comment on above: Note: Responsible Ob room service food server: XNV AUTOFILE (3018) Acetoacetic Acid,Ur Negative (NEG) [facility] Work Phone: Comment on above: Note: Responsible Ob room service food server: TIANNA COSTELLO (909) Albumin/Glob Ratio 1.9 (1.0-2.5) [facility] Work Phone: [phone] Comment on above: Note: Responsible Ob room service food server: CEEV AUTOFILE (3003) Alkaline Phos 80 U/L (35-104) [facility] Work Phone: [phone] Comment on above: Note: Responsible Ob room service food server: CEEV AUTOFILE (3003) Auto Diff Performed NOT REPORTED [facility] Work Phone: [phone] BUN/CRE Ratio NOT REPORTED (9-20) [facility] Work Phone: [phone] Cholesterol,HDL 31 mg/dL Low (>40) [facility] Work Phone: [phone] Comment on above: Note: HDL Guidelines : <40 Undesirable 40-59 Borderline >59 Desirable Responsible Observer: CEEV AUTOFILE (3003) Cholesterol,LDL 182 mg/dL High (0-130) [facility] Work Phone: Comment on above: Note: LDL Guidelines : <100 Desirable 100-129 Near to/above Desirable 130-159 Borderline >159 Undesirable Direct (measured) LDL and calculated LDL are not interchangeable tests.Responsible Observer: CEEV AUTOFILE (3003) Cholesterol,VLDL NOT REPORTED mg/dL (-30) [facility] Work Phone: Cholesterol.total/Chol esterol in HDL [Mass ratio] 8.5 {ratio} High (<5) [facility] Work Phone: [phone] Comment on above: Note: Responsible Ob room service food server: CEEV AUTOFILE (3003) Comment NOT REPORTED [facility] Work Phone: [phone] Epithelial, Renal NOT REPORTED /HPF (0) [facility] Work Phone: [phone] Erythrocyte distribution width (RBC) [Ratio] 13.0 % (11.8-14.4) [facility] Work Phone: [phone] Comment on above: Note: Responsible Ob room service food server: XNV AUTOFILE (3018) GFR, Amer >60 mL/min (>60) [facility] Work Phone: [phone] Comment on above: Note: Responsible Ob room service food server: CEEV AUTOFILE (3003) GFR,non Amer >60 mL/min (>60) [facility] Work Phone: [phone] Comment on above: Note: Responsible Ob room service food server: CEEV AUTOFILE (3003) Immature granulocytes (Bld) [#/Vol] 0 % (0) [facility] Work Phone: [phone] Comment on above: Note: Responsible Ob room service food server: XNV AUTOFILE (3018) Leuckocyte Esterase MODERATE Abnormal (NEG) [facility] Work Phone: [phone] Comment on above: Note: Responsible Ob room service food server: TIANNA COSTELLO (328) MCHC (RBC) [Mass/Vol] 32.4 g/dL (28.4-34.8) [facility] Work Phone: [phone] Comment on above: Note: Responsible Ob room service food server: XNV AUTOFILE (3018) Mucus Strands NOT REPORTED (NONE) [facility] Work Phone: [phone] Nitrite,Ur Negative (NEG) [facility] Work Phone: [phone] Comment on above: Note: Responsible Ob room service food server: TIANNA COSTELLO (579) Other Observations NOT REPORTED (NREQ) [facility] Work Phone: [phone] Performing Lab: see note [facility] Work Phone: [phone] Comment on above: Note: BRET Dru Jurado [address] [facility] [address] PH,Ur 6.0 (5.0-8.0) [facility] Work Phone: [phone] Comment on above: Note: Responsible Ob room service food server: TIANNA COSTELLO (869) Platelet mean volume (Bld) [Entitic vol] 12.1 fL (8.1-13.5) [facility] Work Phone: [phone] Comment on above: Note: Responsible Ob room service food server: XNV AUTOFILE (4680) RBC (U) [#/Vol] 2 TO 5 /HPF (0-4) [facility] Work Phone: [phone] Comment on above: Note: Reference rang e defined for non-centrifuged specimen.Responsible Observer: TIANNA COSTELLO (122) Reported Physicians See Note [facility] Work Phone: [phone] Comment on above: Note: Reported Physi cians:Ordering: Dennise Gil JAttending: DENNISE GILReferring: DENNISE GIL Segmented neutrophils/100 WBC (Bld) 68 % High (36-65) [facility] Work Phone: [phone] Comment on above: Note: Responsible Ob room service food server: XNV AUTOFILE (3684) Spec. [place],Ur 1.025 (1.005-1.03 0 ) [facility] Work Phone: [phone] Comment on above: Note: Responsible Ob room service food server: TIANNA COSTELLO (483) Staging: NOT REPORTED [facility] Work Phone: [phone] Thyroid Stim. Horm. 2.50 mIU/L (0.30-5.00) [facility] Work Phone: [phone] Comment on above: Note: Responsible Ob room service food server: CEEV AUTOFILE (0639) Trichomonas NOT REPORTED (NONE) [facility] Work Phone: [phone] Turbidity CLOUDY Abnormal (CLEAR) [facility] Work Phone: Comment on above: Note: Responsible Ob room service food server: TIANNA COSTELLO (410) Urobilinogen,Ur Normal (NORM) [facility] Work Phone: Comment on above: Note: Responsible Ob room service food server: TIANNA COSTELLO (836) WBC Morphology NOT REPORTED [facility] Work Phone: UA w/Reflex Cultureon 2018 Acetoacetic Acid,Ur Negative Normal NEG [facility] Comment on above: Performed By: #### U MICAO, UAX #### [facility] [address] [place] [phone] Duct Installer: Bebo Sarmiento MD Bilirubin, SemiQt,Ur Negative Normal NEG [facility] Comment on above: Performed By: #### U MICAO, UAX #### [facility] [address] [place] [phone] Duct Installer: Bebo Sarmiento MD Color (U) YELLOW Normal YEL [facility] Comment on above: Performed By: #### U MICAO, UAX #### [facility] [address] [place] [phone] Duct Installer: Bebo Sarmiento MD Glucose Ql (U) Negative Normal NEG [facility] Comment on above: Performed By: #### U MICAO, UAX #### [facility] [address] [place] [address] Duct Installer: Bebo Sarmiento MD Hemoglobin, Ur Negative Normal NEG [facility] Comment on above: Performed By: #### U MICAO, UAX #### [facility] [address] [place] [address] Duct Installer: Bebo Sarmiento MD Leukocyte esterase Test strip Ql (U) MODERATE Abnormal NEG [facility] Comment on above: Performed By: #### U MICAO, UAX #### [facility] [address] [place] [phone] Duct Installer: Bebo Sarmiento MD Nitrite,Ur Negative Normal NEG [facility] Comment on above: Performed By: #### U MICAO, UAX #### [facility] [address] [place] [address] Duct Installer: Bebo Sarmiento MD pH (U) 6.0 [pH] Normal 5.0-8.0 [facility] Comment on above: Performed By: #### U MICAO, UAX #### [facility] [address] [place] [phone] Duct Installer: Bebo Sarmiento MD Protein Ql (U) Negative Normal NEG [facility] Comment on above: Performed By: #### U MICAO, UAX #### [facility] [address] [place] [address] Duct Installer: Bebo Sarmiento MD Specific gravity (U) [Rel density] 1.025 Normal 1.005-1.030 [facility] Comment on above: Performed By: #### U MICAO, UAX #### [facility] [address] [place] [address] Duct Installer: Bebo Sarmiento MD Turbidity CLOUDY Abnormal CLEAR [facility] Comment on above: Performed By: #### U MICAO, UAX #### [facility] [address] [place] [address] Duct Installer: Bebo Sarmiento MD Urobilinogen,Ur Normal Normal NORM [facility] Comment on above: Performed By: #### U MICAO, UAX #### [facility] [address] [place] [phone] Duct Installer: Bebo Sarmiento MD Comment NOT REPORTED Normal [facility] Comment on above: Performed By: #### U MICAO, UAX #### [facility] [address] [place] [phone] Duct Installer: Bebo Sarmiento MD Urinalysison 08-14-2018 Amorphous sediment LM Ql (Urine sed) NOT REPORTED (NONE) [facility] Work Phone: Bacteria LM.HPF (Urine sed) [#/Area] MANY Abnormal (NONE) [facility] Work Phone: Comment on above: Note: Responsible Ob room service food server: TIANNA COSTELLO ([phone]) Casts LM.LPF (Urine sed) [#/Area] 5 TO 10 HYALINE /LPF (0-8) [facility] Work Phone: Comment on above: Note: Reference rang e defined for non-centrifuged specimen.Responsible Observer: TIANNA COSTELLO ([id number]) Color (U) YELLOW (YEL) [facility] Work Phone: Comment on above: Note: Responsible Ob room service food server: TIANNA COSTELLO ([phone]) Crystals LM Nom (Urine sed) NOT REPORTED /HPF (NONE) [facility] Work Phone: Epithelial cells LM.HPF (Urine sed) [#/Area] 10 TO 20 /HPF (0-5) [facility] Work Phone: Comment on above: Note: Responsible Ob room service food server: TIANNA COSTELLO ([phone]) WBC (U) [#/Vol] 20 TO 50 /HPF (0-5) [facility] Work Phone: Comment on above: Note: Responsible Ob room service food server: TIANNA COSTELLO ([phone]) Yeast LM Ql (Urine sed) NOT REPORTED (NONE) [facility] Work Phone: Urinalysis,Microon 9 Amorphous sediment LM Ql (Urine sed) NOT REPORTED Normal NONE [facility] Comment on above: Performed By: #### U CANDICE UAX #### [employer] [address] [place], [place] [id number] Duct Installer: Bebo Sarmiento MD Crystals LM Nom (Urine sed) NOT REPORTED Normal NONE [facility] Comment on above: Performed By: #### U MICAO, UAX #### [facility] [address] [place] [phone] Duct Installer: Bebo Sarmiento MD Epithelial, Renal NOT REPORTED Normal 0 [facility] Comment on above: Performed By: #### U MICAO, UAX #### [facility] [address] [place] [phone] Duct Installer: Bebo Sarmiento MD Mucus Strands NOT REPORTED Normal NONE [facility] Comment on above: Performed By: #### U MICAO, UAX #### [facility] [address] [place] [id number] Duct Installer: Bebo Sarmiento MD Other Observations NOT REPORTED Normal NREQ [facility] Comment on above: Performed By: #### U MICAO, UAX #### [facility] [address] [place] [phone] Duct Installer: Bebo Sarmiento MD Trichomonas NOT REPORTED Normal NONE [facility] Comment on above: Performed By: #### U MICAO, UAX #### [facility] [address] [place] [id number] Duct Installer: Bebo Sarmiento MD Yeast LM Ql (Urine sed) NOT REPORTED Normal NONE [facility] Comment on above: Performed By: #### U MICAO, UAX #### [facility] [address] [place] [phone] Duct Installer: Bebo Sarmiento MD Metabolic Panelon 11-26-2017 Hemoglobin A1c/Hemoglobin.total mass fraction (Bld) 5.90 % Invalid Interpretation Code < 7 [email or web address] [facility] Work Phone: Otheron 11-26-2017 3=Uncontrolled Invalid Interpretation Code [facility] Work Phone: 0= N/A Invalid Interpretation Code [facility] Work Phone: 0-N/A Invalid Interpretation Code [facility] Work Phone: 0=No Invalid Interpretation Code [facility] Work Phone: 7 Invalid Interpretation Code [facility] Work Phone: 3=Yes Invalid Interpretation Code [facility] Work Phone: 1=Yes Invalid Interpretation Code [facility] Work Phone: 0 Invalid Interpretation Code [facility] Work Phone: Risk Level 3=7-9 Invalid Interpretation Code [facility] Work Phone: 5 Invalid Interpretation Code [facility] Work Phone: Vital Signs Date Time Vital Sign Value Performing Clinician Eric thompson 03-11-2023 14:31-0500 Diastolic blood pressure 90 mm[Hg] DEAD MAIL CHECKER Mari Gladwin-Lara Work Phone: [facility] 03-11-2023 14:31-0500 Systolic blood pressure 128 mm[Hg] DEAD MAIL CHECKER Mari Leonid-Lara Work Phone: [facility] 03-11-2023 14:22-0500 Body height 154.94 cm DEAD MAIL CHECKER Mari Gladwin-Lara Work Phone: [facility] 03-11-2023 14:22-0500 Body mass index (BMI) [Ratio] 33.1 kg/m2 DEAD MAIL CHECKER Mari Gladwin-Lara Work Phone: [facility] 03-11-2023 14:22-0500 Body temperature 98.1 [degF] DEAD MAIL CHECKER Mari Gladwin-Lara Work Phone: [facility] 03-11-2023 14:22-0500 Body weight 79.6 kg DEAD MAIL CHECKER Mari Gladwin-Lara Work Phone: [facility] 03-11-2023 14:22-0500 Heart rate 87 /min DEAD MAIL CHECKER Mari Gladwin-Lara Work Phone: [facility] 03-11-2023 14:22-0500 Respiratory rate 18 /min DEAD MAIL CHECKER Mari Leonid-Lara Work Phone: [facility] 03-11-2023 14:22-0500 SaO2% (BldA) [Mass fraction] 96 % DEAD MAIL CHECKER Mari Gladwin-Lara Work Phone: [facility] 10-17-2022 15:16-0400 Diastolic blood pressure 74 mm[Hg] DEAD MAIL CHECKER Mari Gladwin-Lara Work Phone: [facility] 10-17-2022 15:16-0400 Systolic blood pressure 110 mm[Hg] DEAD MAIL CHECKER Mari Gladwin-Lara Work Phone: [facility] 10-17-2022 15:12-0400 Body height 154.94 cm DEAD MAIL CHECKER Mari Leonid-Lara Work Phone: [facility] 10-17-2022 15:12-0400 Body mass index (BMI) [Ratio] 36.1 kg/m2 DEAD MAIL CHECKER Mari Gladwin-Lara Work Phone: [facility] 10-17-2022 15:12-0400 Body temperature 97.7 [degF] DEAD MAIL CHECKER Mari Gladwin-Lara Work Phone: [facility] 10-17-2022 15:12-0400 Body weight 86.63 kg DEAD MAIL CHECKER Mari Leonid-Lara Work Phone: [facility] 10-17-2022 15:12-0400 Heart rate 111 /min DEAD MAIL CHECKER Mari Gladwin-Lara Work Phone: [facility] 10-17-2022 15:12-0400 Respiratory rate 16 /min DEAD MAIL CHECKER Mari Gladwin-Lara Work Phone: [facility] 10-17-2022 15:12-0400 SaO2% (BldA) [Mass fraction] 98 % DEAD MAIL CHECKER Mari Gladwin-Lara Work Phone: [facility] 02-27-2022 14:25-0500 Body height 154.94 cm MD Lory Trevino Work Phone: [facility] 02-27-2022 14:25-0500 Body mass index (BMI) [Ratio] 36.6 kg/m2 MD Laureano Trevino Work Phone: [facility] 02-27-2022 14:25-0500 Body weight 87.99 kg MD Laureano Trevino Work Phone: [facility] 02-27-2022 14:25-0500 Diastolic blood pressure 86 mm[Hg] MD Lory Aguayoa Work Phone: [facility] 02-27-2022 14:25-0500 Heart rate 85 /min MD Laureano Trevino Work Phone: [facility] 02-27-2022 14:25-0500 Respiratory rate 18 /min MD Lory Aguayoa Work Phone: [facility] 02-27-2022 14:25-0500 SaO2% (BldA) [Mass fraction] 93 % MD Laureano Trevino Work Phone: [facility] 02-27-2022 14:25-0500 Systolic blood pressure 120 mm[Hg] MD Laureano Uriel Work Phone: [facility] 09-29-2019 08:27-0400 BMI (Body Mass Index) 34 kg/m2 [facility] Work Phone: 09-29-2019 08:27-0400 Body weight 81.65 kg [facility] Work Phone: 09-29-2019 08:27-0400 BSA (Body Surface Area) 1.81 m2 [facility] Work Phone: 09-29-2019 08:27-0400 Height 154.94 cm [facility] Work Phone: 10-13-2018 14:23-0400 BMI (Body Mass Index) 38.3 kg/m2 [facility] Work Phone: 10-13-2018 14:23-0400 Body Temperature 98.4 [degF] [facility] Work Phone: 10-13-2018 14:23-0400 Body weight 94.89 kg Lida Malone [facility] Work Phone: 10-13-2018 14:23-0400 BP Diastolic 70 mm[Hg] [facility] 10-13-2018 14:23-0400 BP Systolic 120 mm[Hg] [facility]: 10-13-2018 14:23-0400 BSA (Body Surface Area) 1.95 m2 [facility] Work Phone: 10-13-2018 14:23-0400 Height 157.48 cm [facility] Work Phone: 10-13-2018 14:23-0400 Pulse (Heart Rate) 63 /min [facility]: 10-13-2018 14:23-0400 Pulse Oximetry 99 % [facility]: 10-13-2018 14:23-0400 Respiratory Rate 20 /min [facility] Work Phone: 09-29-2018 11:31-0400 BMI (Body Mass Index) 38.6 kg/m2 [facility] Work Phone: 09-29-2018 11:31-0400 Body Temperature 98.7 [degF] [facility] Work Phone: 09-29-2018 11:31-0400 Body weight 95.71 kg [facility] Work Phone: 09-29-2018 11:31-0400 BP Diastolic 86 mm[Hg] [facility] Work Phone: 09-29-2018 11:31-0400 BP Systolic 124 mm[Hg] [facility] Work Phone: 09-29-2018 11:31-0400 BSA (Body Surface Area) 1.96 m2 [facility] Work Phone: 09-29-2018 11:31-0400 Height 157.48 cm [facility] Work Phone: 09-29-2018 11:31-0400 Pulse (Heart Rate) 87 /min [facility] Work Phone: 09-29-2018 11:31-0400 Pulse Oximetry 98 % [facility] Work Phone: 09-29-2018 11:31-0400 Respiratory Rate 16 /min [facility] Work Phone: 09-02-2018 09:38-0400 BMI (Body Mass Index) 37.9 kg/m2 [facility] Work Phone: 09-02-2018 09:38-0400 Body Temperature 98.9 [degF] [facility] Work Phone: 09-02-2018 09:38-0400 Body weight 94.08 kg [facility] Work Phone: 09-02-2018 09:38-0400 BP Diastolic 78 mm[Hg] [facility] Work Phone: 09-02-2018 09:38-0400 BP Systolic 122 mm[Hg] [facility] Work Phone: 09-02-2018 09:38-0400 BSA (Body Surface Area) 1.94 m2 [facility] Work Phone: 09-02-2018 09:38-0400 Height 157.48 cm [facility] Work Phone: 09-02-2018 09:38-0400 Pulse (Heart Rate) 90 /min [facility] Work Phone: 09-02-2018 09:38-0400 Pulse Oximetry 97 % [facility] Work Phone: 09-02-2018 09:38-0400 Respiratory Rate 16 /min [facility] Work Phone: 08-14-2018 09:48-0400 BMI (Body Mass Index) 37.1 kg/m2 [facility] Work Phone: 08-14-2018 09:48-0400 Body Temperature 99.2 [degF] [facility] Work Phone: 08-14-2018 09:48-0400 Body weight 92.08 kg [facility] Work Phone: 08-14-2018 09:48-0400 BP Diastolic 84 mm[Hg] [facility] Work Phone: 08-14-2018 09:48-0400 BP Systolic 126 mm[Hg] [facility] Work Phone: 08-14-2018 09:48-0400 BSA (Body Surface Area) 1.92 m2 [facility] Work Phone: 08-14-2018 09:48-0400 Height 157.48 cm [facility] Work Phone: 08-14-2018 09:48-0400 Pulse (Heart Rate) 83 /min [facility] Work Phone: 08-14-2018 09:48-0400 Pulse Oximetry 99 % [facility] Work Phone: 11-26-2017 16:58-0400 BMI (Body Mass Index) 32.58 kg/m2 [facility] 11-26-2017 16:58-0400 Body Temperature 97.2 [degF] [facility] 11-26-2017 16:58-0400 BP Diastolic 84 mm[Hg] [facility] 11-26-2017 16:58-0400 BP Systolic 127 mm[Hg] [facility] 11-26-2017 16:58-0400 BSA (Body Surface Area) 1.88 m2 [facility] 11-26-2017 16:58-0400 Height 157.48 cm [facility] 11-26-2017 16:58-0400 Pulse (Heart Rate) 85 /min [facility] 11-26-2017 16:58-0400 Pulse Oximetry 98 % [facility] 11-26-2017 16:58-0400 Respiratory Rate 20 /min [facility] 11-26-2017 16:58-0400 Weight 80.8 kg [facility] 11-26-2017 14:58-0400 BMI (Body Mass Index) 32.6 kg/m2 [facility] Work Phone: 11-26-2017 14:58-0400 Body Temperature 97.2 [degF] [facility] Work Phone: 11-26-2017 14:58-0400 Body weight 80.74 kg [facility] Work Phone: 11-26-2017 14:58-0400 BP Diastolic 84 mm[Hg] [facility] Work Phone: 11-26-2017 14:58-0400 BP Systolic 127 mm[Hg] [facility] Work Phone: 11-26-2017 14:58-0400 BSA (Body Surface Area) 1.82 m2 [facility] Work Phone: 11-26-2017 14:58-0400 Height 157.48 cm [facility] Work Phone: 11-26-2017 14:58-0400 Pulse (Heart Rate) 85 /min [facility] Work Phone: 11-26-2017 14:58-0400 Respiratory Rate 20 /min [facility] Work Phone: 12-15-2015 13:48-0400 BP Diastolic 89 mm[Hg] [facility] 12-15-2015 13:48-0400 BP Systolic 153 mm[Hg] [facility] 12-15-2015 13:48-0400 Pulse (Heart Rate) 82 /min [facility] Encounters Encounter Date Encounter Type Care Provider Facility Start: 04-03-2023 End: 04-03-2023 ambulatory Mari Blair Facility:[facility] Start: 04-03-2023 Encounter for genera l adult medical examination without abnormal findings Mari Blair [facility] Start: 03-11-2023 End: 03-11-2023 ambulatory DEAD MAIL CHECKER Mari Otto ShahonDom Work Phone: [facility] Work Phone: Start: 03-11-2023 End: 03-11-2023 Patient encounter procedure DEAD MAIL CHECKER Mari LeonidDom Work Phone: [facility] Bhupinder Work Phone: Start: 03-04-2023 ambulatory HOLLIS GALLEGOS [facility] Start: 11-16-2022 End: 11-16-2022 Emergency department patient visit [facility] [place] [facility] Start: 10-18-2022 End: 10-18-2022 ambulatory Mari Blair Facility:[facility] Start: 10-18-2022 End: 10-18-2022 ambulatory DEAD MAIL CHECKER Mari Blair Work Phone: [facility] Work Phone: Start: 10-18-2022 End: 10-18-2022 Patient encounter procedure DEAD MAIL CHECKER Mari Blair Work Phone: [facility]-Non-Pt/Dr Office Specimen Start: 10-17-2022 End: 10-17-2022 ambulatory DEAD MAIL CHECKER Mari Blair Work Phone: [facility] Work Phone: Start: 10-17-2022 End: 10-17-2022 Patient encounter procedure DEAD MAIL CHECKER Mari Blair Work Phone: [facility] Work Phone: Start: 04-30-2022 Patient encounter status DEAD MAIL CHECKER Bi juan luis Blair Work Phone: [facility] Start: 02-27-2022 End: 02-27-2022 ambulatory MD Lory Trevino Work Phone: [facility] Work Phone: Start: 02-27-2022 End: 02-27-2022 Patient encounter procedure MD Lory Trevino Work Phone: [facility] Start: 09-29-2019 End: 09-29-2019 Telemedicine consultation with patient Brendon Newman Work Phone: [facility] Work Phone: Start: 02-17-2019 End: 02-17-2019 Patient encounter procedure Dennise Gil Work Phone: [facility] Work Phone: Start: 10-13-2018 End: 10-13-2018 Established patient Dennise Gil Work Phone: [facility] Work Phone: Start: 09-29-2018 End: 09-29-2018 ambulatory Cindy Forde Work Phone: [facility] Work Phone: Start: 09-29-2018 End: 09-29-2018 ambulatory Cindy Forde Work Phone: [facility] Work Phone: Start: 09-02-2018 End: 09-02-2018 Patient encounter procedure Mell Mercado Work Phone: [facility] Work Phone: Start: 09-02-2018 End: 09-02-2018 ambulatory Carlie Stringer Work Phone: [facility] Work Phone: Start: 08-28-2018 End: 08-28-2018 Patient encounter procedure Dennise Gil Work Phone: [facility] Work Phone: Start: 08-14-2018 End: 08-15-2018 Patient encounter procedure DENNISE GIL [facility] Start: 08-14-2018 End: 08-14-2018 Established patient Cindy Forde Work Phone: [facility] Work Phone: Start: 08-14-2018 End: 08-14-2018 New patient Dennise Gil Work Phone: [facility] Work Phone: Start: 11-26-2017 Substance Abuse Tee Bran Other [facility] Start: 11-26-2017 Office outpatient vi sit 15 minutes Lida Malone Other [facility] Start: 11-26-2017 End: 11-26-2017 Patient encounter procedure Dennise [place] [facility] Work Phone: Start: 11-26-2017 Tobacco use cessatio n intermediate 3-10 minutes Tee Bran [facility] Start: 12-15-2015 Dental Charmaine hudson Other [facility] Procedures Date Procedure Procedure Detail Performing Clinician Start: 03-11-2023 Flu A DEAD MAIL CHECKER Mari Blair Work Phone: Start: 09-29-2018 Diast bp 80-[address] [facility] Work Phone: Start: 09-29-2018 Psychotherapy w/adrian ent 30 minutes Cindy Forde Work Phone: Start: 09-29-2018 Syst bp lt [address] [facility] Malone Work Phone: Start: 09-02-2018 Caries risk assess h igh risk Mell Mercado Work Phone: Start: 09-02-2018 Diast bp <80 mm hg Ashl uday Arturhing Work Phone: Start: 09-02-2018 General Periodic/Com p Exam*HPWO* Mell Mercado Work Phone: Start: 09-02-2018 Gluc bld gluc mntr d ev cleared fda spec home use Carlie Stringer Work Phone: Start: 09-02-2018 Oral Health Integration Mell Mercado Work Phone: Start: 09-02-2018 Syst bp lt 130 mm hg As hley Rushing Work Phone: Start: 08-14-2018 Culture bacterial quanttative colony count urine DENNISE GIL Start: 08-14-2018 ANXIETY DISORDER NOS Ba tyler Gil Start: 08-14-2018 DEPRESSION Dennise Pu rvis Start: 08-14-2018 Diast bp 80-89 mm hg Ba tyler Gil Work Phone: Start: 08-14-2018 Hemoglobin glycosylated a1c Dennise Gil Work Phone: Start: 08-14-2018 Hepatitis c antibody Ba tyler Gil Work Phone: Start: 08-14-2018 HYPERTENSION (SYSTEMIC) Dennise Gil Start: 08-14-2018 Ligation of fallopian tube Dennise Gil Start: 08-14-2018 past medical/surgica l history [use for free text] Dennise Gil Start: 08-14-2018 Psychotherapy w/adrian ent 30 minutes Cindy Forde Work Phone: Start: 08-14-2018 Syst bp lt 130 mm hg Ba tyler Gil Work Phone: Start: 08-14-2018 Urnls dip stick/tabl et rgnt non-auto w/o micrscp Dennise Gil Work Phone: Start: 08-14-2018 Assay of thyroid stimulating hormone tsh DENNISE GIL Start: 08-14-2018 Blood count complete auto&auto difrntl wbc DENNISE GIL Start: 08-14-2018 Comprehensive metabo lic panel DENNISE GIL Start: 08-14-2018 Lipid panel DENNISE VALE RVIS Start: 08-14-2018 Urinalysis microscopic only DENNISE GIL Start: 08-14-2018 Urnls dip stick/tabl et rgnt auto w/o microscopy DENNISE GIL Start: 11-26-2017 End: 11-26-2017 Psychotherapy w/patient 30 minutes Tee Yina Start: 11-26-2017 Hemoglobin glycosylated a1c Tee Yina Start: 11-26-2017 HG A1C LEVEL LT 7.0% Ma ttmaldonado Bran Start: 11-26-2017 PHQ9 Administered Mushtaq frankel Yina Start: 11-26-2017 Pt-focused hlth risk assmt score doc stnd instrm Tee Yina Start: 11-26-2017 Referral Treatment Ignacio maldonado Bran Start: 11-26-2017 SBIRT- Full Screen *POSITIVE* Referred to Provider Tee Bran Start: 11-26-2017 Screening, Brief Intervention, Referral and Treatment Tee Bran Plan of Treatment Date Care Activity Detail Author Start: 10-18-2022 Bacteria identified in Urine by Culture [facility] Start: 10-29-2019 _SARS-CoV-2 CO VID19 test [facility] Work Phone: Start: 09-29-2019 COVID Drive up Testing [facility] Work Phone: Start: 01-20-2019 Dental Comp Exam [facility] Work Phone: Start: 10-13-2018 End: 09-13-2018 Comprehensive metabolic 2000 panel [facility] Work Phone: Start: 10-13-2018 End: 09-13-2018 Lipid panel Lipid Panel (LIPR) [facility] Work Phone: Start: 09-29-2018 End: 10-29-2018 Comprehensive metabolic 2000 panel [facility] Work Phone: Comment on above: Note: Please make a referral to:pt needs to re establish with rheumatology that is different that old one Start: 09-29-2018 End: 10-29-2018 CRP [Mass/Vol] CRP (C-Reactive Proteine) [facility] Work Phone: Start: 09-29-2018 End: 09-13-2018 Lipid panel Lipid Panel (LIPR) [facility] Work Phone: Start: 09-13-2018 Comprehensive metabo lic 2000 panel [facility] Work Phone: Start: 09-13-2018 Lipid panel Lipid Panel (LIPR) [facility] Work Phone: Urinalysis macro (dipstick) panel - Urine [facility] Immunizations Immunization Date Immunization Notes Care Provider Marni gale 08-08-2020 COVID-19 PFIZER DEAD MAIL CHECKER Mari Blair Work Phone: [facility] 01-24-1989 diphtheria, tetanus toxoids and pertussis vaccine DEAD MAIL CHECKER Mari Blair Work Phone: [facility] 01-24-1989 measles, mumps and rubella virus vaccine DEAD MAIL CHECKER Mari Blair Work Phone: [facility] 01-24-1989 trivalent poliovirus vaccine, live, oral DEAD MAIL CHECKER Mari Blair Work Phone: [facility] 02-02-1988 diphtheria, tetanus toxoids and pertussis vaccine DEAD MAIL CHECKER Mari Leonid-Lara Work Phone: [facility] 1986 diphtheria, tetanus toxoids and pertussis vaccine DEAD MAIL CHECKER Mari Gladwin-Lara Work Phone: [facility] 1986 trivalent poliovirus vaccine, live, oral DEAD MAIL CHECKER Mari Jaquez-Lara Work Phone: [facility] 1986 diphtheria, tetanus toxoids and pertussis vaccine DEAD MAIL CHECKER Mari Gladwin-Lara Work Phone: [facility] 1986 trivalent poliovirus vaccine, live, oral DEAD MAIL CHECKER Mari Jaquez-Marco Work Phone: [facility] Payers Date Payer Category Payer Self-pay [id number] 2014 Unknown [id number] 1986 Unknown [id number] 1986 Unknown [id number] 1986 Unknown [id number] 1986 Unknown [id number] 1986 Unknown [id number] Social History Date Type Detail Facility Start: [facility] Start: 1 gram/day [facility] Start: 02-27-2022 End: 03-11-2023 Current every day smoker [facility] Assertion Heterosexual (finding) [facility] Work Phone: Assertion Legal problem (finding) [facility] Work Phone: Assertion Lives with paren ts (finding) [facility] Work Phone: Assertion Emotional stress (finding) [facility] Work Phone: Assertion [facility] Work Phone: Assertion Finding of sexua l orientation (finding) [facility] Work Phone: Assertion Sexually active (finding) [facility] Work Phone: Assertion Tobacco user (finding) [facility] Work Phone: Assertion Heavy tobacco sm oker (finding) [facility] Work Phone: Assertion Smoker (finding) [facility] Work Phone: Assertion Gender identity finding (finding) [facility] Work Phone: Assertion Illicit drug use (finding) [facility] Work Phone: Assertion Misuse of prescr iption only drugs (finding) [facility] Work Phone: Assertion Opiate misuse (finding) [facility] Work Phone: Assertion Exposure to poll ution (event) [facility] Work Phone: Assertion Misuses drugs (finding) [facility] Work Phone: Tobacco smoking status Unknown if ever smoked [facility] Work Phone: Assertion Finding relating to drug misuse behavior (finding) [facility] Work Phone: Assertion Unemployed (finding) [facility] Work Phone: Start: 02-27-2022 Parent(s) [facility] Start: 02-27-2022 0 [facility] [place] Start: 02-27-2022 Denies Use [facility] [place] Start: 1985 Sex Assigned At Female [facility] NEGATED: Highlighted row Assertion Current drinker of alcohol (finding) [facility] Work Phone: NEGATED: Highlighted row Assertion Finding relating to drug misuse behavior (finding) [facility] Work Phone: NEGATED: Highlighted row Assertion She has not had 4 or more drinks in a day within the past year. [facility] Work Phone: Mental Status Date Assessment Result Facility Cognitive function Cognitive fun ctioning was normal Cognitive function finding (finding) [facility] Work Phone: Evaluation note Note Date & Type Note Facility Evaluation note No assessment information availa [facility] Work Phone: Evaluation note Note Date & Type Note Facility Evaluation note Diagnosis Onset Date UTI (urinary tract infection) acute [facility] Work Phone: Assessments Findings Encounter Date Generalized anxiety disorder BH Substanc e Abuse with Cindy CARVALHOW 09/29/2018 Nicotine dependence BH Substance Abuse w [facility] Cindy CARVALHOW 09/29/2018 Opioid dependence BH Substance Abuse w [facility] Cindy CARVALHOW 09/29/2018 Body mass index Medical Established Patient with Lida Malone [employer] 09/29/2018 M79.604 - Pain in right leg Medical Esta blished Patient with Lida Malone [facility] 09/29/2018 Nicotine dependence uncomplicated Medica l Established Patient with Lida Malone [facility] 09/29/2018 Obesity due to excess calories Medical E stablished Patient with Lida Malone [employer] 09/29/2018 Prediabetes Medical Established Patient with Lida Malone [employer] 09/29/2018 R69 - Illness, unspecified Medical Estab lished Patient with Lida Malone CNP 09/29/2018 Rheumatoid arthritis Medical Established Patient with Lida Malone CNP 09/29/2018 J30.9 - Allergic rhinitis, unspecified O pen Access - Established with Carlie Stringer [employer] 09/02/2018 Obesity due to excess calories Open Acce [facility] Prediabetes Open Access - Establ ished with [facility] 09/02/2018 R60.0 - Localized edema [facility] Z68.37 - Body mass index (BM I) 37.0-37.9, adult Open Access - [facility]2018 Dast - 10 Score was nine Established Patient with Cindy Maurisio [employer] 08/14/2018 JUAN CARLOS-7 score was three Established Pat ient with Cindy Maurisio [employer] 08/14/2018 Generalized anxiety disorder Establis hed Patient with Cindy Maurisio [employer] 08/14/2018 Nicotine dependence Established Patie nt with Cindy Maurisio [employer] 08/14/2018 Opioid dependence Established Patie nt with Cindy Maurisio [employer] 08/14/2018 PHQ-9: total score was two Establishe d Patient with Cindy Maurisio [employer] 08/14/2018 Anxiety disorder NOS Medical New Patient with Dennise Sha [employer]ANT 08/14/2018 Depression Medical New Patient with Dennise [place] [employer]IONS CONSULTANT 08/14/2018 Fagerstrom Score was five 08/14/2018 =5 M edical New Patient with Dennise Sha [employer] CONSULTANT 08/14/2018 JUAN CARLOS-7 score was three 08/14/2018 =3 Medic al New Patient with Dennise [place] [employer]UTIONS CONSULTANT 08/14/2018 Methamphetamine abuse Medical New Patien t with Dennise Sha [employer] CONSULTANT 08/14/2018 Methamphetamine abuse - in remission Med ical New Patient with Dennise Sha [employer] CONSULTANT 08/14/2018 Obesity Medical New Patient with Dennise Sha [employer] CONS[employer]ANT 08/14/2018 Obesity due to excess calories Medical N ew Patient with Dennise [place] [employer] SOLUTIONS CONSULTANT 08/14/2018 PHQ-9: total score was two 08/14/2018 =2 Medical New Patient with Dennise [place] [employer]UTIONS CONSULTANT 08/14/2018 Prediabetes Medical New Patient with Dennise Sha [employer] SOLUTIONS CONSULTANT 08/14/2018 Routine history and physical Medical New Patient with Dennise Sha [employer] SOLUTIONS CONSULTANT 08/14/2018 Z68.37 - Body mass index (BM I) 37.0-37.9, adult Medical New Patient with Dennise Sha [employer] CONSULTANT 08/14/2018 Findings Encounter Date Anxiety disorder NOS Medical Established Patient with Dennise Gil [facility] 10/13/2018 Body mass index Medical Established Patient with Dennise Gil [facility] 10/13/2018 Depression Medical Established Patient with Dennise Gil [facility] 10/13/2018 Rheumatoid arthritis Medical Established Patient with Dennise Gil [facility] 10/13/2018 Rheumatoid arthritis of the fingers Medi justin Established Patient with Dennise Gil [facility] 10/13/2018 Rheumatoid arthritis of the wrist Medica l Established Patient with Dennise Gil [facility] 10/13/2018 Generalized anxiety disorder BH Substanc e Abuse with Cindy Forde [employer] 09/29/2018 Nicotine dependence BH Substance Abuse w ith Cindy Forde [employer] 09/29/2018 Opioid dependence BH Substance Abuse w ith Cindy Forde [employer] 09/29/2018 Body mass index Medical Established Patient with Lida Malone [facility] 09/29/2018 M79.604 - Pain in right leg Medical Esta blished Patient with Lida Malone [facility] 09/29/2018 Nicotine dependence uncomplicated Medica l Established Patient with Lida Malone [facility] 09/29/2018 Obesity due to excess calories Medical E stablished Patient with Lidamary Malone [facility] 09/29/2018 Prediabetes Medical Established Patient with Lida Malone [facility] 09/29/2018 R69 - Illness, unspecified Medical Estab lished Patient with Lida Malone [facility] 09/29/2018 Rheumatoid arthritis Medical Established Patient with Lida Malone [facility] 09/29/2018 J30.9 - Allergic rhinitis, unspecified O pen Access [facility]/2018 Obesity due to excess calories Open Acce ss - Established with Carlie [facility] 09/02/2018 Prediabetes Open Access - Establ ished with [facility] 09/02/2018 R60.0 - Localized edema Open Access - Es tablished with [facility] 09/02/2018 Z68.37 - Body mass index (BM I) 37.0-37.9, adult Open Access - Established with [facility] 09/02/2018 Dast - 10 Score was nine Established Patient with Cindy GUTIERREZ 08/14/2018 JUAN CARLOS-7 score was three Established Pat ient with Cindy CARVALHOW 08/14/2018 Generalized anxiety disorder BH Establis hed Patient with Cindy Ramirezhl [employer] 08/14/2018 Nicotine dependence BH Established Patie nt with Cindy Maurisio [employer] 08/14/2018 Opioid dependence BH Established Patie nt with Cindy Maurisio [employer] 08/14/2018 PHQ-9: total score was two BH Establishe d Patient with Cindy Maurisio [employer] 08/14/2018 Anxiety disorder NOS Medical New Patient with Dennise Sha [employer] CONS[employer]ANT 08/14/2018 Depression Medical New Patient with Dennise Sha [employer] SOLUTIONS CONSULTANT 08/14/2018 Fagerstrom Score was five 08/14/2018 =5 M edical New Patient with Dennise Sha [employer] SOLUT[employer] CONSULTANT 08/14/2018 JUAN CARLOS-7 score was three 08/14/2018 =3 Medic al New Patient with Dennise Sha [employer]UT[employer] CONSULTANT 08/14/2018 Methamphetamine abuse Medical New Patien t with Dennise Sha [employer] CONSULTANT 08/14/2018 Methamphetamine abuse - in remission Med ical New Patient with Dennise [place] [employer] SOLUTIONS CONSULTANT 08/14/2018 Obesity Medical New Patient with Dennise Sha [employer]UTIONS CONSULTANT 08/14/2018 Obesity due to excess calories Medical N ew Patient with Dennise Sha [employer] SOLUTIONS CONSULTANT 08/14/2018 PHQ-9: total score was two 08/14/2018 =2 Medical New Patient with Dennise Sha [employer] SOLUTIONS CONSULTANT 08/14/2018 Prediabetes Medical New Patient with Dennise [place] [employer] SOLUTIONS CONSULTANT 08/14/2018 Routine history and physical Medical New Patient with Dennise [place] [employer] SOLUTIONS CONSULTANT 08/14/2018 Z68.37 - Body mass index (BM I) 37.0-37.9, adult Medical New Patient with Dennise Sha [employer] SOLUTIONS CONSULTANT 08/14/2018 Findings Encounter Date Exposure to a viral disease Telemedicine with Mary Newman [facility] 09/29/2019 Anxiety disorder NOS Medical Established Patient with Dennise [place] [employer] SOLUTIONS CONSULTANT 10/13/2018 Body mass index Medical Established Patient with Dennise [place] [employer] SOLUTIONS CONSULTANT 10/13/2018 Depression Medical Established Patient with Dennise Sha [employer] SOLUTIONS CONSULTANT 10/13/2018 Rheumatoid arthritis Medical Established Patient with Dennise [place] [employer] SOLUTIONS CONSULTANT 10/13/2018 Rheumatoid arthritis of the fingers Medi justin Established Patient with Dennise Sha [employer] SOLUT[employer] CONSULTANT 10/13/2018 Rheumatoid arthritis of the wrist Medica l Established Patient with Dennise [place] [employer] SOLUTIONS CONSULTANT 10/13/2018 Generalized anxiety disorder BH Substanc e Abuse with Cindy Maurisio [employer] 09/29/2018 Nicotine dependence BH Substance Abuse w ith Cindy Maurisio [employer] 09/29/2018 Opioid dependence Substance Abuse w ith Cindy Maurisio [employer] 09/29/2018 Body mass index Medical Established Patient with Lida Malone [facility] 09/29/2018 M79.604 - Pain in right leg Medical Esta blished Patient with Lida Malone [facility] 09/29/2018 Nicotine dependence uncomplicated Medica l Established Patient with Lida Malone [facility] 09/29/2018 Obesity due to excess calories Medical E stablished Patient with Lida Malone [facility] 09/29/2018 Prediabetes Medical Established Patient with Lida Malone [facility] 09/29/2018 R69 - Illness, unspecified Medical Estab lished Patient with Lida Malone [facility] 09/29/2018 Rheumatoid arthritis Medical Established Patient with Lida Malone [facility] 09/29/2018 J30.9 - Allergic rhinitis, unspecified O pen Access - Established with [facility] 09/02/2018 Obesity due to excess calories Open Acce ss - Established with [facility] 09/02/2018 Prediabetes Open Access - Establ ished with [facility] 09/02/2018 R60.0 - Localized edema Open Access - Es tablished with [facility] 09/02/2018 Z68.37 - Body mass index (BM I) 37.0-37.9, adult Open Access - Established with [facility] 09/02/2018 Dast - 10 Score was nine BH Established Patient with Cindy Ramirezhl [facility] 08/14/2018 JUAN CARLOS-7 score was three Established Pat ient with Cindy Forde [facility] 08/14/2018 Generalized anxiety disorder [facility]is hed [facility] Nicotine dependence [facility]14/2018 Opioid dependence Establ[facility] 08/14/2018 PHQ-9: total score was two [facility]ishe d [facility]/2018 Anxiety disorder NOS Medical New Patient with Dennise Sha [facility] 08/14/2018 Depression Medical New Patient with Dennise Main[place] [facility] 08/14/2018 Fagerstrom Score was five 08/14/2018 =5 M edical New Patient with Dennise Maines[place] [facility] 08/14/2018 JUAN CARLOS-7 score was three 08/14/2018 =3 Medic al New Patient with Dennise Gil [employer] 08/14/2018 Methamphetamine abuse Medical New Patien t with Dennise Gil [facility] 08/14/2018 Methamphetamine abuse - in remission Med ical New Patient with Dennise Gil [employer] CONS[employer]ANT 08/14/2018 Obesity Medical New Patient with Dennise Gil [employer] SOLUTIONS CONSULTANT 08/14/2018 Obesity due to excess calories Medical N ew Patient with Dennise Gil [employer] SOLUTIONS CONSULTANT 08/14/2018 PHQ-9: total score was two 08/14/2018 =2 Medical New Patient with Dennise Gil [facility] 08/14/2018 Prediabetes Medical New Patient with Dennise Gil [employer] CONS[employer] 08/14/2018 Routine history and physical Medical New Patient with Dennise Gil [facility] 08/14/2018 Z68.37 - Body mass index (BM I) 37.0-37.9, adult Medical New Patient with Dennise Gil [facility] 08/14/2018 Instructions Instructions not supported for this document type No Instructions Recorded Instructions not supported for this document type No Instructions Recorded Instructions not supported for this document type No Instructions Recorded Instructions not supported for this document type No Instructions Recorded History of Present Illness History of Present Illness not supported for this document type No History of Present Illness Recorded History of Present Illness not supported for this document type No History of Present Illness Recorded History of Present Illness not supported for this document type No History of Present Illness Recorded History of Present Illness not supported for this document type No History of Present Illness Recorded Family History No Family History Records Found Description Last Updated Family history of heart disease 08/15/19 19 Maternal history of family history of is chemic heart disease 08/14/2018 Relationship Condition Age at Onset Recorded Date/T salomon Not Specified Unknown family medical history Unknown mother Heart disease Unknown Hypertension Unknown Review of System Review of Systems not supported for this document type No Review of Systems Recorded Review of Systems not supported for this document type No Review of Systems Recorded Review of Systems not supported for this document type No Review of Systems Recorded Review of Systems not supported for this document type No Review of Systems Recorded Physical Exam Physical Exam not supported for this document type No Physical Exam Recorded Physical Exam not supported for this document type No Physical Exam Recorded Physical Exam not supported for this document type No Physical Exam Recorded Physical Exam not supported for this document type No Physical Exam Recorded Advance Directives Includes: Current Advance Directives No Advance Directives RecordedNo Advanced Directives Records FoundNo Advanced Directives Records Found Includes: Current Advance Directives No Advance Directives RecordedNo Advanced Directives Records FoundNo Advanced Directives Records Found Includes: Current Advance Directives No Advance Directives Recorded Includes: Current Advance Directives No Advance Directives RecordedNo Advanced Directives Records FoundNo Advanced Directives Records FoundNo Advanced Directives Records FoundNo Advanced Directives Records Found Summary Purpose Reason for Referral No Reason for Referral RecordedNo Reason for Referral Recorded Chief Complaint and Reason for Visit Chief Complaint Upper respiratory in fection x 1week Chief Complaint ?UTI Chief Complaint ?UTI Dysuria Reason for Visit UTI (urinary tract i nfection) Chief Complaint spot on great toe, r ight foot Additional Source Comments Evaluations & Outcomes (unre cognized section and content) Includes: Evaluations & Outcomes for active GoalsNo Outcomes Recorded Includes: Evaluations & Outcomes for active GoalsNo Outcomes Recorded Includes: Evaluations & Outcomes for active GoalsNo Outcomes Recorded Includes: Evaluations & Outcomes for active GoalsNo Outcomes Recorded INFORMATION SOURCE (unrecogn ized section and content) DATE CREATED AUTHOR 10/02/2018 [facility] DATE CREATED AUTHOR AUTHOR'S ORGANIZ ATION 10/03/2018 [facility] DATE CREATED AUTHOR AUTHOR'S ORGANIZ ATION 01/03/2019 [facility] DATE CREATED AUTHOR AUTHOR'S ORGANIZ ATION 04/04/2019 [facility] DATE CREATED AUTHOR AUTHOR'S ORGANIZ ATION 04/01/2020 [facility] DATE CREATED AUTHOR AUTHOR'S ORGANIZ ATION 11/17/2022 [facility] DATE CREATED AUTHOR AUTHOR'S ORGANIZ ATION 02/28/2023 [facility] DATE CREATED AUTHOR AUTHOR'S ORGANIZ ATION 04/04/2023 [facility] Care Teams (unrecognized sec tion and content) Team Status: Active Member Role Status Dates Unknown Unknown Family Provider Active Lory Trevino MD Primary Care Provider Active Team Status: Inactive Member Role Status Dates Lory Trevino MD Primary Care Provider Active Mari Blair NP Attending Provider Active Team Status: Active Member Role Status Dates Unknown Unknown Family Provider Active Mari Blair NP Primary Care Provider Acti ve Team Status: Inactive Member Role Status Dates Mari Blair NP Primary Care Provider, Att ending Provider Active Goals (unrecognized section and content) Goals may be documented in a n alternate section FOR RECORDS PERTAINING TO PATIENTS WHO ARE OR HAVE BEEN ENROLLED IN A CHEMICAL DEPENDENCY/SUBSTANCEABUSE PROGRAM, SOME INFORMATION MAY BE OMITTED. This clinical summary was aggregated from multiple sources. Caution should be exercised in using it in the provision of clinical care. This summary normalizes information from multiple sources, and as a consequence, information in this document may materially change the coding, format and clinical context of patient data. In addition, data may be omitted in some cases. CLINICAL DECISIONS SHOULD BE BASED ON THE PRIMARY CLINICAL RECORDS. [facility] [employer] [facility]. provides no warranty or guarantee of the accuracy or completeness of information in this document.
--- NOTE | 2023-09-14 10:13 | XR_ITS ---
[address] [address] Patient Name: RIOS MENDEZ MRN: [id number] date: 1985 Sex: F Assigned Patient Location: ER Current Patient Location: ER Accession/Order Number: [id number] Exam Date: 09/14/2023 10:26 Report Date: 09/14/2023 11:13 At the request of: ÓSCAR LARA Procedure: XR chest 2V EXAM: XR chest 2V HISTORY: cough COMPARISON: None FINDINGS/IMPRESSION: 1. Lungs are clear 2. No pneumothorax. No pleural effusion. 3. Heart size and mediastinal contours are normal 4. No acute osseous abnormality Electronically authenticated by: NATE DUNN Date: 09/14/2023 11:13
--- NOTE | 2023-09-14 10:19 | ECG_ITS ---
[facility] Test Date: 2023-09-14 Pat Name: RIOS MENDEZ Department: Room: - Gender: Female Office Clerk: : 1985 Requested By: KADY MTZ Order Number: [id number] Reading MD: JC JACQUES Measurements Intervals Lohn Rate: 102 P: 64 DE: 136 QRS: 40 QRSD: 76 T: 45 QT: 338 QTc: 397 Interpretive Statements 1120 Sinus tachycardia 2420 RSR (QR) in lead V1/V2, consistent with right ventricular conduction delay 9140 abnormal rhythm ECG No previous ECG available for comparison Electronically Signed On 09-15-2023 7:31:19 EDT by JC JACQUES
--- NOTE | 2023-09-14 11:08 | ED_ITS ---
HPI HPI - General Adult General Chief complaint: Upper Respiratory Infection Stated complaint: COUGH, SOB Time Seen by Provider: 09/14/23 10:08 Source: patient Mode of arrival: walk-in History of Present Illness HPI narrative: 38-year-old smoker to the emergency department with chief complaint of cough. She reports symptoms started 2 weeks ago with a viral upper respiratory infection. She is continued to have a persistent nagging cough. This is not improved despite doxycycline, azithromycin, a steroid taper, albuterol inhaler. Cough is nonproductive. No fever, sweats, chills. No chest pain. No shortness of breath Related Data Home Medications ?Medication ?Instructions ?Recorded ?Confirmed hyjyodh-peipvytsyqaaj-vwszpedf 250 1 tab PO Q6H 09/07/23 09/14/23 mg-250 mg-65 mg tablet (Pain Reliever Plus) buspirone 7.5 mg tablet 7.5 mg PO Q12H 09/07/23 09/14/23 cetirizine 10 mg tablet 10 mg PO DAILY 09/07/23 09/14/23 docusate sodium 100 mg capsule 100 mg PO DAILY 09/07/23 09/14/23 guaifenesin 600 mg tablet, 600 mg PO Q12H 09/07/23 09/14/23 extended release 12 hr (Mucinex) melatonin 10 mg tablet 10 mg PO DAILY 09/07/23 09/14/23 naltrexone microspheres 380 mg 380 mg IM .monthly 09/07/23 09/14/23 intramuscular suspension,extended release (Vivitrol) prazosin 1 mg capsule 1 mg PO DAILY 09/07/23 09/14/23 prednisone 10 mg tablet 10 mg PO Q12H 09/07/23 09/14/23 sertraline 50 mg tablet 50 mg PO Q24H 09/07/23 09/14/23 aripiprazole 5 mg tablet 5 mg PO DAILY 09/14/23 09/14/23 hydroxyzine pamoate 25 mg capsule 25 mg PO Q6H PRN nausea and 09/14/23 09/14/23 vomiting losartan 50 mg tablet 50 mg PO DAILY 09/14/23 09/14/23 trazodone 100 mg tablet 100 mg PO DAILY 09/14/23 09/14/23 Previous Rx's ?Medication ?Instructions ?Recorded albuterol sulfate 0.63 mg/3 mL 0.63 mg (3 mL) inhalation Q8H PRN 09/07/23 solution for nebulization shortness of breath or wheezing #90 mL fltbdjjlnqeumlv-pdnsdsbqsmcjshp-KX 5 ml PO Q4H PRN cough #200 mL 09/14/23 2 mg-30 mg-10 mg/5 mL oral syrup (Bromfed DM) Allergies Allergy/AdvReac Type Severity Reaction Status Date / Time No Known Drug Allergies Allergy Verified 09/07/23 14:20 Opioid HPI Opioid Management Most Recent Opioid Data: Last Pain Scale 5 09/07/23 14:27 Review of Systems ROS Status of ROS 10 or more systems reviewed and unremark able except as noted in history and below Exam Narrative Exam Narrative: VITALS: I have reviewed the triage vital signs. GENERAL: Well developed, well appearing adult in no acute distress. NEURO: Alert and oriented. Moves all extremities. Face is symmetric and expressive. EYES: PERRL. No scleral icterus or conjunctival injection. No discharge. HENT: Normocephalic, atraumatic. Hearing is grossly intact. Nares grossly patent and without discharge. Mucous membranes moist. NECK: No JVD. Patient moves neck without restriction. CARDIO: Rhythm regular. Normal rate. No murmur, rub, or gallop. Pulses equal bilaterally in the upper and lower extremity. No lower extremity edema. PULM: Lungs clear to auscultation in all esqueda. No wheezes, rales, or rhonchi. No conversational dyspnea. No splinting, stridor, or accessory muscle use. GI/: Abdomen is soft and non-tender. Normoactive bowel sounds. EXTREMITIES: Symmetric muscle bulk. No joint swelling. No clubbing, cyanosis, or deformity. SKIN: Warm and dry. Normal turgor. No rash or lesions appreciated. PSYCH: Mood, affect, and interaction is appropriate to the setting. Constitutional Vital Signs, click to edit/add: Last Vital Signs Temp 98.3 F 09/14/23 10:02 Pulse 107 H 09/14/23 10:02 Resp 16 09/14/23 10:02 BP 152/98 H 09/14/23 10:02 Pulse Ox 99 09/14/23 10:07 O2 Del Method Room Air 09/14/23 10:07 Course Vital Signs Vital signs: Vital Signs Temperature 98.3 F 09/14/23 10:02 Pulse Rate 107 H 09/14/23 10:02 Respiratory Rate 16 09/14/23 10:02 Blood Pressure 152/98 H 09/14/23 10:02 Pulse Oximetry 99 09/14/23 10:02 Oxygen Delivery Method Room Air 09/14/23 10:02 Temperature 98.3 F 09/14/23 10:02 Pulse Rate 107 H 09/14/23 10:02 Respiratory Rate 16 09/14/23 10:02 Blood Pressure 152/98 H 09/14/23 10:02 Pulse Oximetry 99 09/14/23 10:07 Oxygen Delivery Method Room Air 09/14/23 10:07 Medical Decision Making MDM Narrative Medical decision making narrative: Well-appearing 38-year-old female to the emergency department chief complaint of cough. Vital stable, the patient is afebrile. Reviewed patient's recent visit at this facility as well as [facility]. She has had full laboratory evaluation as well as a chest x-ray and a CT scan of her chest. Clinically the patient has a very mild cough on exam. She is concerned that it is not resolving. Will order a chest x-ray. No further workup indicated at this time. Smoking cessation was discussed with the patient. Chest x-ray is without acute findings. Kenalog shot is given. Smoking cessation. Bromfed prescription given. Return precautions were discussed. All questions were answered. The patient was discharged home Imaging Data Chest x-ray: Attestation: I have reviewed the pertinent imaging results. ECG Data Attestation: I personally reviewed and interpreted this ECG as follows: (Sign tachycardia at a rate of 102. Normal QTc. No evidence of ischemia.) Discharge Plan Discharge Stand Alone Forms: Portal Instructions Chief Complaint: Upper Respiratory Infection Clinical Impression: Bronchitis Patient Disposition: Home, Self-Care Time of Disposition Decision: 11:32 Condition: Good Mode of Transportation: Private Vehicle Prescriptions / Home Meds: New nnojnyhfjpbytfv-wuxugbjae-WZ [Bromfed DM] 2-30-10 mg/5 mL syrup 5 ml PO Q4H PRN (Reason: cough) Qty: 200 0RF No Action Pain Reliever Plus 250-250-65 mg tablet 1 tab PO Q6H buspirone 7.5 mg tablet 7.5 mg PO Q12H cetirizine 10 mg tablet 10 mg PO DAILY docusate sodium 100 mg capsule 100 mg PO DAILY guaifenesin [Mucinex] 600 mg tablet extended release 12hr 600 mg PO Q12H melatonin 10 mg tablet 10 mg PO DAILY Vivitrol 380 mg suspension,extended rel recon 380 mg IM .monthly prazosin 1 mg capsule 1 mg PO DAILY prednisone 10 mg tablet 10 mg PO Q12H sertraline 50 mg tablet 50 mg PO Q24H albuterol sulfate 0.63 mg/3 mL solution for nebulization 0.63 mg inhalation Q8H PRN (Reason: shortness of breath or wheezing) Qty: 90 0RF aripiprazole 5 mg tablet 5 mg PO DAILY hydroxyzine pamoate 25 mg capsule 25 mg PO Q6H PRN (Reason: nausea and vomiting) losartan 50 mg tablet 50 mg PO DAILY trazodone 100 mg tablet 100 mg PO DAILY Print Language: [place] Referrals: KADY MTZ [Primary Care Provider] - 1 week
[2023-09-14] MEDS: TRIAMCINOLONE ACETONIDE 40 MG/ML VIAL IM (11:52)
[2023-09-14 11:53] VITALS: PULSE 84; O2SAT 98
== END 2023-09-14 11:59 | disposition home or self-care (01) ==
PROVIDERS: Emergency Provider Student in an Organized Health Care Education/Training Program; PCP Family Medicine
DX: J40 Bronchitis, not specified as acute or chronic (principal)
CPT/HCPCS: 71046; 93005; 96372; 99285; J3301

== ENCOUNTER 2024-02-04 19:57 | Emergency (ER) | payer OTHER, SELFPAY ==
--- OUTSIDE RECORDS SUMMARY | 2024-02-04 20:14 | XMS_ITS | CCD ---
Author Organization [facility] Care Team Providers Care Supervisor [place] Workers Name Role Phone Tee Bran Unavailable Unavailable Dennise Gil Unavailable Dennise Gil Primary Care Provider Lida Malone Unavailable Dennise Gil Primary Care Provider [phone] DENNISE GIL Referring Unavailable DENNISE GIL Primary Care Unavailable MD Lory Trevino Primary Care Provider FE Blair Attending Provider FE Blair Primary Care Provider FE Blair Attending Provider BETZY WOODS Attending Unavailable LORY TREVINO Primary Care Unavailable HOLLIS GALLEGOS Consulting Unavailable HOLLIS GALLEGOS Attending Unavailable HOLLIS GALLEGOS Admitting Unavailable FE Blair Primary Care Provider FE Blair Attending Provider Mari Blair Attending Unavaila Mari Ann Primary Care Unavaila Mari Ann Attending Unavaila Mari Ann Primary Care Unavaila DASH Tellez Referring Unavailable DASH ARMSTRONG Attending Unavailable NO PCP, NO PCP Primary Care Unavailable LM EL Attending Unavailable LM EL Attending Unavailable LM EL Referring Unavailable NO PCP, NO PCP Primary Care Unavailable Allergies Allergy Classification Reported Allergen(s) Allergy Type Date of Onset Reaction(s) Facility (7 sources) Seasonal allergy; Translations: [Seasonal allergies] Allergy to substance (disorder) [facility] (3 sources) NO KNOWN DRUG ALLERGIES Allergy to substance (disorder) [facility] (3 sources) -No Known Food Allergies Allergy to substance (disorder) [facility] (3 sources) Sertraline; Translations: [SERTRALINE] Drug Allergy 06-30-2015 [facility] Repository Medications Current Medications Medication Drug Class(es) Dates Sig (Normalized) Sig (Original) [id number] 200 actuat albuterol 0.09 mg/actuat metered dose [...] 40MG Oral Tablet 08/28/2018 Provider: Dennise Gil [employer] benzonatate 200 mg oral capsule (5 sources) [...] 08/14/2018 Provider: Start: 04-26-2018 End: 04-26-2018 BUSPIRONE [facility] 04/26/2018 - 04/26/2018 Provider: Start: 01-09-2018 End: 01-09-2018 BUSPIRONE 10 MG [facility] - 01/09/2018 Provider: Start: 01-09-2018 End: 01-09-2018 BUSPIRONE 10MG [facility] 01/10/2001/09/2018 Provider: Start: 11-26-2017 take 1 tablet by [...] Start: 11-26-2017 End: 11-26-2017 BUSPIRONE 10 MG [facility] 018 - 11/26/2017 Provider: Start: 11-26-2017 End: 11-26-2017 BUSPIRONE 10MG [facility] 11/27/19 - 11/26/2017 Provider: buspirone oral cefdinir [...] mg oral tablet (11 sources) Biguanide Start: 03-11-2023 take 1000 mg by mouth once daily Metformin Active 1000 MG PO Daily March 11, 2023 12:00am Start: 11-09-2020 End: 05-07-2021 take 1000 mg by mouth once daily Metformin Discontinued 1000 MG PO Daily November 08, 2020 11:00pm May 07, 2021 4:34pm Start: 08-14-2018 End: 04-11-2019 metFORMIN HCl 500 MG Oral Ta blet 12/12/2018 - 04/11/2019 Provider: Dennise Gil CNP [place] (No Home Medications ) (1 source) Start: 10-17-2022 [place] (No Ho me Medications) Active October 17, [...] Clavulanate Discontinued 1 TAB PO Q12H 14 7 May 07, 2021 12:00am September 11, 2021 [...] Histamine-1 Receptor Antagonist Start: 09-02-2018 End: 12-01-2018 PatriciayrTEC Allergy 10MG Oral Tablet 09/02/2018 - 12/01/2018 Provider: Carlie ZAVALAP Start: 04-26-2018 End: 04-26-2018 PatriciaYRTEC MISC 04/26/2018 - Provider: Sariah oral ciprofloxacin 500 mg oral tablet (2 sources) Quinolone Antimicrobial Start: 10-17-2022 End: 03-11-2023 take 500 mg by mouth twice daily Ciprofloxacin Hcl Discontinued 500 MG PO twice a day October 16, 2022 11:00pm March 11, 2023 [...] sources) Start: 04-26-2018 End: 04-26-2018 FOLIC ACID [facility] 04/26/2018 - 04/26/2018 Provider: folic acid oral gabapentin (13 sources) Anti-epileptic Agent Start: 04-26-2018 End: 04-26-2018 NEURONTIN [facility] 04/26/2018 - 04/26/2018 Provider: Start: 11-26-2017 End: 11-30-2017 take 1 capsule by mouth three times daily gabapentin 300 mg oral capsule 11/26/2017 11/30/2017 take 1 capsule (300 mg) by oral route 3 times per day for 4 days Start: 11-26-2017 End: 11-26-2017 GABAPENTIN 300 mg [facility] 11/26 - 11/26/2017 Provider: Neurontin oral Methadone [...] Anti-inflammatory Drug Start: 04-26-2018 End: 04-26-2018 NAPROXEN [facility] 04/26/2018 - 04/26/2018 Provider: naproxen oral ondansetron [...] Tablet 09/29/2018 - 10/13/2018 Provider: Lida Malone CNP Start: 04-26-2018 End: 04-26-2018 PREDNISONE MISC 04/26/2018 - 04/26/2018 Provider: prednisone oral promethazine hydrochloride 25 mg oral tablet (6 sources) Phenothiazine Start: 11-26-2017 End: 11-30-2017 take 1 tablet by mouth three times daily as needed for nausea promethazine 25 mg oral tablet 11/26/2017 11/30/2017 take 1 tablet by oral route TID PRN nausea Start: 11-26-2017 End: 11-26-2017 PROMETHAZINE 25 MG MISC 10/31 - 11/26/2017 Provider: Start: 11-26-2017 End: [...] Translations: [Nausea with vomiting, unspecified] 01-18-2021 Episodic Nonspecific chest pain (2 sources) Chest pain, unspecified; Translations: [Chest pain] Onset: 12-17-2023 Episodic Other connective tissue disease (2 sources) [...] [Acute upper respiratory infection, unspecified] 01-18-2021 Episodic Poisoning by other medications and drugs (2 sources) Poisoning by unspecified drugs, medicaments and biological substances, accidental (unintentional), initial encounter; Translations: [Poisoning by unspecified drugs, medicaments and biological substances, accidental (unintentional), initial encounter] Onset: 11-12-2023 Episodic Rheumatoid arthritis and related disease (13 [...] history of diabetes mellitus Onset: 11-26-2017 Episodic Unclassified (1 source) EMS Onset: 12-17-2023 Urinary tract infections (3 sources) Urinary tract [...] Test Name Value Interpretation Reference Range Facility CBC AND AUTO DIFFon 12-17-19 24 ABSOLUTE BASOPHIL 0.1 X10E9/L Normal 0.0-0.2 [facility] Comment on above: Performed By: #### Patricio FIERRO CMP, 98468-6, 42699-2 #### [facility] ([id number]) [address] [place] [address] 18795 ABSOLUTE NEUTROPHIL 6.2 X10E9/L Normal 1.5-6.6 [facility] Comment on above: Performed By: #### Patricio FIERRO CMP, 17254-2, 09295-4 #### [facility] ([id number]) [address] [place] [address] 98176 Basophils/100 WBC (Bld) 0.7 % Normal [facility] Comment on above: Performed By: #### Patricio FIERRO CMP, 53322-0, 80597-6 #### [facility] ([id number]) [address] [place] [address] 35690 Eosinophils (Bld) [#/Vol] 0.2 10*3/uL Normal 0.0-0.4 [facility] Comment on above: Performed By: #### Patricio FIERRO CMP, 17975-3, 61725-0 #### [facility] ([id number]) [address] [place] [address] 03880 Eosinophils/100 WBC (Bld) 1.7 % Normal [facility] Comment on above: Performed By: #### Patricio FIERRO CMP, 19631-9, 09927-2 #### [facility] ([id number]) [address] [place] [address] 85245 Erythrocyte distribution width (RBC) [Ratio] 13.8 % Normal 11.5-15.0 [facility] Comment on above: Performed By: #### C GRISELDA FIERRO, 79392-3, 53369-8 #### [facility] ([id number]) [address] [place] [address] 50734 Hematocrit (Bld) [Volume fraction] 42.0 % Normal 35-47 [facility] Comment on above: Performed By: #### Patricio FIERRO [facility] [address], 88001-7, 00728-6 #### [facility] ([id number]) [address] [place] [address] 95867 Hemoglobin (Bld) [Mass/Vol] 14.5 g/dL Normal 11.7-15.5 [facility] Comment on above: Performed By: #### Patricio FIERRO CMP, 89506-8, 35559-4 #### [facility] ([id number]) [address] [place] [address] 84223 Lymphocytes (Bld) [#/Vol] 2.3 10*3/uL Normal 1.0-3.5 [facility] Comment on above: Performed By: #### Patricio FIERRO [facility] [address] [address], 86716-7, 14477-2 #### [facility] ([id number]) [address] [place] [address] 99040 Lymphocytes/100 WBC (Bld) 24.7 % Normal [facility] Comment on above: Performed By: #### C VADIM CMP, 79001-7, 46292-2 #### [facility] ([id number]) [address] [place] [address] 59488 MCH (RBC) [Entitic mass] 32.5 pg Normal 27-34 [facility] Comment on above: Performed By: #### C VADIM CMP, 14287-7, 67122-4 #### [facility] ([id number]) [address] [place] [address] 11835 MCHC (RBC) [Mass/Vol] 34.6 g/dL Normal 32-36 [facility] Comment on above: Performed By: #### Patricio FIERRO CMP, 26309-4, 72504-4 #### [facility] ([id number]) [address] [place] [address] 23044 MCV (RBC) [Entitic vol] 94 fL Normal 80-100 [facility] Comment on above: Performed By: #### Patricio FIERRO CMP, 47485-5, 63910-2 #### [facility] ([id number]) [address] [place] [address] 10230 Monocytes (Bld) [#/Vol] 0.6 10*3/uL Normal 0-0.9 [facility] Comment on above: Performed By: #### Patricio FIERRO CMP, 21440-0, 21844-9 #### [facility] ([id number]) [address] [place] [address] 44659 Monocytes/100 WBC (Bld) 6.0 % Normal [facility] Comment on above: Performed By: #### Patricio FIERRO CMP, 66051-4, 83966-3 #### [facility] ([id number]) [address] [place] [address] 63624 Neutrophils/100 WBC (Bld) 66.9 % Normal [facility] Comment on above: Performed By: #### Patricio FIERRO CMP, 08712-4, 00549-4 #### [facility] ([id number]) [address] [place] [address] 47997 Platelet mean volume (Bld) [Entitic vol] 9.0 fL Normal 7-12 [facility] Comment on above: Performed By: #### Patricio FIERRO CMP, 53208-9, 04649-7 #### [facility] ([id number]) [address] [place] [address] 85114 Platelets (Bld) [#/Vol] 295 10*3/uL Normal 150-450 [facility] Comment on above: Performed By: #### C BCA, CMP, 85111-0, 14997-1 #### [facility] ([id number]) [address] [place] [address] 90095 RBC COUNT 4.47 X10E12/L Normal 3.80-5.20 [facility] Comment on above: Performed By: #### C BCA, CMP, 74839-7, 01495-0 #### [facility] ([id number]) [address] [place] [address] 25356 WBC (Bld) [#/Vol] 9.2 10*3/uL Normal 4.0-11.0 [facility] Comment on above: Performed By: #### C BCA, CMP, 19129-6, 70292-5 #### [facility] ([id number]) [address] [place] [address] 47325 COMPREHENSIVE METABOLIC PANE Aurelio 12-17-2023 Albumin [Mass/Vol] 4.0 g/dL Normal 3.2-5.3 [facility] Comment on above: Performed By: #### C BCA, CMP, 64524-8, 57572-5 #### [facility] ([id number]) [address] [place] [address] 14368 ALP [Catalytic activity/Vol] 81 U/L Normal 39-130 [facility] Comment on above: Performed By: #### C BCA, CMP, 99556-1, 49540-0 #### [facility] ([id number]) [address] [place] [address] 72932 ALT [Catalytic activity/Vol] 20 U/L Normal 0-31 [facility] Comment on above: Performed By: #### C BCA, CMP, 14963-9, 11350-9 #### [facility] ([id number]) [address] [place] [address] 33459 Anion gap [Moles/Vol] 9 mmol/L Normal 5-15 [facility] Comment on above: Performed By: #### C BCA, CMP, 79754-9, 89031-8 #### [facility] ([id number]) [address] [place] [address] 02578 AST [Catalytic activity/Vol] 14 U/L Normal 0-41 [facility] Comment on above: Performed By: #### C BCA, CMP, 72296-1, 48341-3 #### [facility] ([id number]) [address] [place] [address] 54011 Bilirubin [Mass/Vol] 0.3 mg/dL Normal 0.3-1.2 [facility] Comment on above: Performed By: #### C BCA, CMP, 93461-9, 20311-3 #### [facility] ([id number]) [address] [place] [address] 38463 Calcium [Mass/Vol] 9.3 mg/dL Normal 8.5-10.5 [facility] Comment on above: Performed By: #### C BCA, CMP, 26808-1, 99457-4 #### [facility] ([id number]) [address] [place] [address] 41843 Chloride [Moles/Vol] 99 mmol/L Normal 98-109 [facility] Comment on above: Performed By: #### C BCA, CMP, 21783-0, 45137-8 #### [facility] ([id number]) [address] [place] [address] 08504 CO2 [Moles/Vol] 25 mmol/L Normal 22-32 [facility] Comment on above: Performed By: #### C BCA, CMP, 78734-4, 50164-1 #### [facility] ([id number]) [address] [place] [address] 32851 Creatinine [Mass/Vol] 0.67 mg/dL Normal 0.40-1.00 [facility] Comment on above: Result Comment: METH OD TRACEABLE TO IDMS STANDARD Performed By: #### C GRISELDA FIERRO, 62443-4, 78398-8 #### [facility] ([id number]) [address] [place] [address] 83268 eGFR (CKD-EPI) NON-RACE DEPENDENT >90 Normal >59 [facility] Comment on above: Result Comment: Reported eGFR is based on the CKD-EPI 2020 equation that does not use a race coefficient. Performed By: #### C GRISELDA FIERRO, 61943-4, 18822-2 #### [facility] ([id number]) [address] [place] [address] 75489 Glucose [Mass/Vol] 111 mg/dL High 65-99 [facility] Comment on above: Performed By: #### C GRISELDA FIERRO, 60773-7, 92182-6 #### [facility] ([id number]) [address] [place] [address] 39439 Potassium [Moles/Vol] 4.0 mmol/L Normal 3.5-5.0 [facility] Comment on above: Performed By: #### C GRISELDA FIERRO, 95312-8, 35711-9 #### [facility] ([id number]) [address] [place] [address] 73996 Protein [Mass/Vol] 7.2 g/dL Normal 6.0-8.0 [facility] Comment on above: Performed By: #### C GRISELDA FIERRO, 32035-6, 14300-0 #### [facility] ([id number]) [address] [place] [address] 09570 Sodium [Moles/Vol] 133 mmol/L Low 134-146 [facility] Comment on above: Performed By: #### C GRISELDA FIERRO, 24472-4, 62874-5 #### [facility] ([id number]) [address] [place] [address] 59922 Urea nitrogen [Mass/Vol] 16 mg/dL Normal 5-23 [facility] Comment on above: Performed By: #### C GRISELDA FIERRO, 74966-8, 29847-3 #### [facility] ([id number]) [address] [place] [address] 83631 Fibrin D-dimer DDU (PPP) [Ma ss/Vol]on 12-17-2023 D DIMER 170 ng/mL DDU Normal <255 [facility] Comment on above: Result Comment: Results <255 ng/mL DDU: The presence of a VTE can safely be excluded with a negative D-Dimer result and Wells score. A negative result doesn't exclude the possibility of DIC. The test be repeated along with other diagnostic tests if the patient's symptoms persist or worsen. [email or web address] Performed By: #### C GRISELDA FIERRO, 66318-7, 90189-9 #### [facility] ([id number]) [address] [place] [address] 43725 Troponin I.cardiac High sens itivity method [Mass/Vol]on 12-17-2023 1 HOUR TROP I, HIGH SENSITIVITY <2 Normal <16 [facility] Comment on above: Performed By: #### 8 9579-7 #### [facility] ([id number]) [address] [place] [address] 46324 TROPONIN I, HIGH SENSITIVITY <2 Normal <16 [facility] Comment on above: Performed By: #### C GRISELDA FIERRO, 97517-8, 32003-0 #### [facility] ([id number]) [address] [place] [address] 64084 XR CHEST 1 VWon 12-17-2023 XR CHEST 1 VW XR CHEST 1 VW Portable chest: HISTORY: Shortness of breath. Single view of the chest was obtained and compared to prior exam dated September 04, 2023. Cardiac and mediastinal contours are stable. No focal infiltrate. No pneumothorax or effusion. Osseous structures appear intact. IMPRESSION: No acute findings. Finalized by Evens Patterson MD on 12/17/2023 5:41 PM Normal [facility] CBC WITH AUTO DIFFERENTIALon 11-12-2023 Erythrocyte distribution width (RBC) [Ratio] 13.8 % Normal 11.5-15.0 [facility] Comment on above: Performed By: #### L [id number] ####[facility] ([facility])[address] [facility] [place] [address] ERYTHROCYTE MEAN CORPUSCULAR HEMOGLOBIN CONCENTRATION (G/DL) BY AUTOMATED 34.2 g/dL Normal 32.0-35.0 [facility] Comment on above: Performed By: #### L [id number] ####[facility] [facility] [place] [address] Hematocrit (Bld) [Volume fraction] 43.8 % Normal 36.0-48.0 [facility] Comment on above: Performed By: #### L [id number] ####[facility] ([facility])[address] [facility] [place] [address] Hemoglobin (Bld) [Mass/Vol] 15.0 g/dL Normal 12.0-15.0 [facility] Comment on above: Performed By: #### L [id number] ####[facility] [facility] [place] [address] IMMATURE PLATELET FRACTION % 2.9 % Normal 0.8-6.3 [facility] Comment on above: Performed By: #### L [id number] ####[facility] ([facility])[address] [place] [facility] [address] MCH (RBC) [Entitic mass] 32.5 pg Normal 27.0-33.0 [facility] Comment on above: Performed By: #### L [id number] ####[facility] [place] [address] MCV (RBC) [Entitic vol] 94.8 fL Normal 82.0-98.0 [facility] Comment on above: Performed By: #### L [id number] ####[facility] [place] [address] NRBC (PER 100 WBCS) BY AUTOMATED COUNT 0.0 % Normal 0 [facility] Comment on above: Performed By: #### L [id number] ####[facility] ([facility])[address] [place] [address] PLATELETS (10*3/UL) IN BLOOD AUTOMATED COUNT 261 10*3/uL Normal 150-400 [facility] Comment on above: Performed By: #### L [id number] ####[facility] ([facility])[address] [place] [address] RBC (Bld) [#/Vol] 4.62 10*6/uL Normal 3.80-5.00 [facility] Comment on above: Performed By: #### L [id number] ####[facility] ([facility])[address] [place] [address] WBC (Bld) [#/Vol] 6.51 10*3/uL Normal 4.00-10.60 [facility] Comment on above: Performed By: #### L [id number] ####[facility] [place] [address] COMPREHENSIVE METABOLIC PANE Aurelio 11-12-2023 Albumin [Mass/Vol] 4.1 g/dL Normal 3.5-5.7 [facility] Comment on above: Performed By: #### L [id number] #### [facility] [address] [place] [address] ALP [Catalytic activity/Vol] 84 U/L Normal 34-104 [facility] Comment on above: Performed By: #### L [id number] #### [facility] [address] [place] [address] ALT [Catalytic activity/Vol] 17 U/L Normal 7-52 [facility] Comment on above: Performed By: #### L [id number] #### [facility] ([facility]) [address] [place] [address] Anion gap [Moles/Vol] 14 mmol/L Normal 7-20 [facility] Comment on above: Performed By: #### L [id number] #### [facility] ([facility]) [address] [place] [address] AST [Catalytic activity/Vol] 22 U/L Normal 13-39 [facility] Comment on above: Performed By: #### L [id number] #### [facility] ([facility]) [address] [place] [address] Bilirubin [Mass/Vol] 0.3 mg/dL Normal 0.3-1.0 [facility] Comment on above: Performed By: #### L [id number] #### [facility] ([facility]) [address] [place] [address] Calcium [Mass/Vol] 9.1 mg/dL Normal 8.6-10.3 [facility] Comment on above: Performed By: #### L [id number] #### [facility] ([facility]) [address] [place] [address] Chloride [Moles/Vol] 102 mmol/L Normal 98-107 [facility] Comment on above: Performed By: #### L [id number] #### [facility] [address] [place] [address] CO2 [Moles/Vol] 28 mmol/L Normal 21-31 [facility] Comment on above: Performed By: #### L [id number] #### [facility] [address] [place] [address] Creatinine [Mass/Vol] 0.81 mg/dL Normal 0.60-1.20 [facility] Comment on above: Performed By: #### L [id number] #### [facility] ([facility]) [address] [place] [address] GLOMERULAR FILTRATION RATE ML/MIN/1.73 SQ M.PREDICTED 95.8 mL/min/1.73m*2 Normal >60.0 [facility] Comment on above: Result Comment: The [facility]???s estimated glomerular filtration rate (eGFR) will no longer include consideration of race in its calculation. The National Kidney Foundation???s eGFR Task Force developed new recommendations for the estimation of the glomerular filtration rate in the [place] They recommend immediate implementation of the new equation refit without the race variable in all laboratories because the calculation does not include race. In addition to not including race in the calculation and reporting, it included diversity in its development, and has acceptable performance characteristics and potential consequences that do not disproportionately affect any one group of individuals. Performed By: #### L [id number] #### [facility] ([facility]) [address] [place] [address] Glucose [Mass/Vol] 99 mg/dL Normal 70-100 [facility] Comment on above: Performed By: #### L [id number] #### [facility] ([facility]) [address] [place] [address] Potassium [Moles/Vol] 4.6 mmol/L Normal 3.5-5.1 [facility] Comment on above: Performed By: #### L [id number] #### [facility] ([facility]) [address] [place] [address] Protein [Mass/Vol] 6.5 g/dL Normal 6.0-8.3 [facility] Comment on above: Performed By: #### L [id number] #### [facility] ([facility]) [address] [place] [address] Sodium [Moles/Vol] 139 mmol/L Normal 136-145 [facility] Comment on above: Performed By: #### L [id number] #### [facility] [address] [place] [address] Urea nitrogen [Mass/Vol] 9 mg/dL Normal 7-25 [facility] Comment on above: Performed By: #### L [id number] #### [facility] ([place]) [address] [place] [address] UREA NITROGEN/CREATININE (MASS RATIO) IN SER/PLAS 11.1 Normal [facility] Comment on above: Performed By: #### L [id number] #### [facility] ([facility] [address] [place] [address] EDNURSon 11-12-2023 EDNURS Pt here by medic 4 for a drug overdose. EMS called to [facility] because the pt snorted 2 xanax and became unresponsive. Facility gave 28 mg Narcan IN. EMS gave an additional 2 mg narcan IVP in which pt did respond to. Pt admits to smoking marijuana while being triaged. [facility] EDPROVon 11-12-2023 EDPROV HPI No chief complaint on file. Initial assessment completed by Dr. Brizuela at 1212. Michelle Pritchett is a 38 y.o. female presenting to ED via EMS with a chief complaint of drug overdose. EMS states pt was at the methadone clinic when she was found unresponsive. She snorted 2 things of xanax. She was given a total of 30mg of narcan. History provided by: EMS personnel History limited by: Acuity of condition fws faculty assistant used: No Ingestion Ingested substance: Illicit drugs No data recorded Patient History No past medical history on file. No past surgical history on file. No family history on file. Social History Tobacco Use Smoking status: Not on file Smokeless tobacco: Not on file Substance Use Topics Alcohol use: Not on file Drug use: Not on file Review of Systems Review of Systems Unable to perform ROS: Acuity of condition Physical Exam ED Triage Vitals Temp Pulse Resp BP -- -- -- -- SpO2 Temp src Heart Rate Source Patient Position -- -- -- -- BP Location FiO2 (%) -- -- Physical Exam Vitals and nursing note reviewed. Constitutional: General: She is not in acute distress. Appearance: She is well-developed. Comments: Agitated, fighting staff, verbally and physically aggressive, HENT: Head: Normocephalic and atraumatic. Eyes: Conjunctiva/sclera: Conjunctivae normal. Cardiovascular: Rate and Rhythm: Normal rate and regular rhythm. Heart sounds: No murmur heard. Pulmonary: Effort: Pulmonary effort is normal. No respiratory distress. Breath sounds: Normal breath sounds. Abdominal: Palpations: Abdomen is soft. Tenderness: There is no abdominal tenderness. Musculoskeletal: General: No swelling. Cervical back: Neck supple. Skin: General: Skin is warm and dry. Capillary Refill: Capillary refill takes less than 2 seconds. Neurological: Mental Status: She is alert. GCS: GCS eye subscore is 3. GCS verbal subscore is 4. GCS motor subscore is 5. Procedures ED Course & MDM ED Course as of 11/12/23 1506 SatNov 12, 2023 1228 38-year-old patient with history of opioid abuse coming in unresponsive with EMS. Patient was at a methadone clinic where she used to go and was then found to be unresponsive. She was given 28 mg of intranasal Narcan and then 2 mg of IV Narcan per EMS following which she started coming more responsive. Patient presented with a GCS of 12 and is not giving much history however she is being aggressive physically and verbally to staff. Patient was put in in restraints and not giving us any more history. [AY] 1229 Differential diagnosis: Opioid overdose, alcohol intoxication, altered mental status. Plan: Given that the patient perked up with Narcan, highly likely opioid overdose. Will get a toxic metabolic workup with CBC CMP and an ethanol as well as a cardiac workup given that the patient was found unresponsive to rule out cardiac issues or cardiac etiology to her syncope. Will also make sure to get a urine and a urinalysis and urine drug screen. Patient is severely agitated at bedside and fighting staff. Patient was a risk to wellbeing of the staff as she swung to multiple healthcare workers at bedside. Patient was placed in soft ankle and wrist restraints for violence and agitation. I refrained from giving any benzodiazepines for this patient at this point to calm her down given that EMS reported that she also told them she took some benzodiazepines specifically Xanax as well. [AY] 1504 Patient alert oriented appropriate. Patient is stable denies any other associate concerns. Workup is resulted. Patient does have what appears to be a dirty urine specimen. Urine culture will be sent. Patient is subsequent discharged home in stable condition. Patient was offered further observation and medical withdrawal management and she refuses to discuss both [TB] ED Course User Index [AY] Nick Brizuela MD [TB] Dash Armstrong, DO Diagnoses as of 11/12/23 1506 Polysubstance overdose, accidental or unintentional, initial encounter Medical Decision Making IDash, documented on behalf of Dr. Brizuela. Chief complaint drug overdose Differential Diagnosis includes but is not limited to opioid overdose, altered mental status, alcohol intoxication. Plan of Care: Fentanyl and metabolite urine quant, POCT , EtOH, CMP, Toxicology panel urine, POCT urinalysis, Troponin I, CBC, fluids I, Dash Estrella (-scribe), documented on behalf of Dr. Armstrong on 11/12/23 at 1316. Michelle Pritchett is a 38 y.o. female presenting to the ED with chief complaint of drug overdose. Dr. Armstrong personally saw and evaluated the patient. Dr. Armstrong discussed the management with the resident, Dr. Brizuela. Dr. Armstrong reviewed the resident's note and agrees with the documentation. Dr. Armstrong performed the substantive portion of the Physical exam. Exam findings as follows: heart had a regular rat (more content not included)... Normal [facility] ETHANOLon 11-12-2023 ETHANOL CALCULATED (%) Normal [facility] Comment on above: Performed By: #### L [id number] #### [facility] ([facility]) [address] [place] [address] Magnesium [Mass/Vol] 12.0 mg/dL Normal [facility] Comment on above: Performed By: #### L [id number] #### [facility] [address] [place] [address] FENTANYL AND METABOLITE URIN E QUANTon 11-12-2023 FENTANYL URINE QUANT 32.5 ng/mL Normal [facility] Comment on above: Result Comment: INTE RPRETIVE INFORMATION: Fentanyl and Metabolite, Urine Methodology: Quantitative Liquid Chromatography-Tandem Mass Spectrometry Positive cutoff: 1.0 ng/mL For medical purposes only; not valid for forensic use. The absence of expected drug(s) and/or drug metabolite(s) may indicate non-compliance, inappropriate timing of specimen collection relative to drug administration, poor drug absorption, diluted/adulterated urine, or limitations of testing. The concentration value must be greater than or equal to the cutoff to be reported as positive. Interpretive questions should be directed to the laboratory. This test was developed and its performance characteristics determined by [employer]. It has not been cleared or approved by the [place] Food and Drug Administration. This test was performed in a CLIA certified laboratory and is intended for clinical purposes. Performed By: #### L [id number] #### [facility] [address] [place] [address] NORFENTANYL URINE QUANT 801.4 ng/mL Normal [facility] Comment on above: Result Comment: Perf ormed By: [employer] [address] [place] [address] Hands Hanger: Eduard Bernabe MD, PhD CLIA Number: [id number] Performed By: #### L [id number] #### [facility] [address] [place] [address] MANUAL DIFFERENTIALon 2023 BASOPHILS (10*3/UL) IN BLOOD BY CALCULATION 0.05 10*3/uL Normal 0.00-0.20 [facility] Comment on above: Performed By: #### L [id number] ####[facility] ([facility])[address] [place] [address] BASOPHILS/100 LEUKOCYTES IN BLOOD BY AUTOMATED COUNT 0.8 % Normal 0.0-1.0 [facility] Comment on above: Performed By: #### L [id number] ####[facility] ([facility])[address] [place] [address] EOSINOPHILS (10*3/UL) IN BLOOD BY CALCULATION 0.40 10*3/uL Normal 0.00-0.50 [facility] Comment on above: Performed By: #### L [id number] ####[facility] ([facility])[address] [place] [address] EOSINOPHILS/100 LEUKOCYTES IN BLOOD BY AUTOMATED COUNT 6.1 % High 0.0-6.0 [facility] Comment on above: Performed By: #### L [id number] ####[facility] ([facility])[address] [place] [address] IMMATURE GRANULOCYTES (10*3/UL) IN BLOOD BY CALCULATION 0.02 10*3/uL Normal 0.00-0.20 [facility] Comment on above: Performed By: #### L [id number] ####[facility] ([facility])[address] [place] [address] IMMATURE GRANULOCYTES/100 LEUKOCYTES IN BLOOD BY AUTOMATED COUNT 0.3 % Normal 0.0-1.0 [facility] Comment on above: Performed By: #### L [id number] ####[facility] ([facility])[address] [place] [address] LYMPHOCYTES (10*3/UL) IN BLOOD BY CALCULATION 2.36 10*3/uL Normal 1.20-4.00 [facility] Comment on above: Performed By: #### L [id number] ####[facility] ([facility])[address] [place] [address] LYMPHOCYTES/100 LEUKOCYTES IN BLOOD BY AUTOMATED COUNT 36.3 % Normal 20.0-45.0 [facility] Comment on above: Performed By: #### L [id number] ####[facility] ([facility])[address] [place] [address] MONOCYTES (10*3/UL) IN BLOOD BY CALCUATION 0.56 10*3/uL Normal 0.10-1.00 [facility] Comment on above: Performed By: #### L [id number] ####[facility] ([facility])[address] [place] [address] MONOCYTES/100 LEUKOCYTES IN BLOOD BY AUTOMATED COUNT 8.6 % Normal 5.0-12.0 [facility] Comment on above: Performed By: #### L [id number] ####[facility] [place] [address] NEUTROPHILS (10*3/UL) IN BLOOD BY CALCULATION 3.1 10*3/uL Normal 1.6-7.6 [facility] Comment on above: Performed By: #### L [id number] ####[facility] ([facility])[address] [place] [address] NEUTROPHILS/100 LEUKOCYTES IN BLOOD BY AUTOMATED COUNT 47.9 % Normal 40.0-72.0 [facility] Comment on above: Performed By: #### L [id number] ####[facility] ([facility])[address] [place] [address] SERUM QUALITATIVEo n 11-12-2023 HCG SERUM-[id number] 2 Negative Normal [facility] Comment on above: Performed By: #### L [id number] #### [facility] ([facility]) [address] [place] [address] TOXICOLOGY PANEL URINEon AMPHETAMINE+METHAMPHE TAMINE SCREEN (PRESENCE) IN URINE Negative Normal Negative [facility] Comment on above: Performed By: #### L [id number] #### [facility] ([facility]) [address] [place] [address] BARBITURATES PRESENCE IN URINE BY SCREEN METHOD Negative Normal Negative [facility] Comment on above: Performed By: #### L [id number] #### [facility] ([facility]) [address] [place] [address] Benzodiazepines Ql (U) Positive Abnormal Negative [facility] Comment on above: Performed By: #### L [id number] #### [facility] ([facility]) [address] [place] [address] CANNABINOID (PRESENCE) IN URINE BY SCREEN METHOD Positive Abnormal Negative [facility] Comment on above: Performed By: #### L [id number] #### [facility] ([facility]) [address] [place] [address] Cocaine Ql (U) Positive Abnormal Negative [facility] Comment on above: Performed By: #### L [id number] #### [facility] ([facility]) [address] [place] [address] METHADONE (PRESENCE) IN URINE BY SCREEN METHOD Negative Normal Negative [facility] Comment on above: Performed By: #### L [id number] #### [facility] [address] [place] [address] OPIATES (PRESENCE) IN URINE BY SCREEN METHOD Negative Normal Negative [facility] Comment on above: Performed By: #### L [id number] #### [facility] ([facility]) [address] [place] [address] PHENCYCLIDINE PRESENCE IN URINE BY SCREEN METHOD Negative Normal Negative [facility] Comment on above: Performed By: #### L [id number] #### [facility] ([facility]) [address] [facility] [place] [address] Propoxyphene Screen Ql (U) Negative Normal Negative [facility] Comment on above: Performed By: #### L [id number] #### [facility] ([facility]) [address] [facility] [place] [address] TRICYCLIC ANTIDEPRESSANTS (PRESENCE) IN URINE Negative Normal Negative [facility] Comment on above: Performed By: #### L [id number] #### [facility] ([facility]) [address] [facility] [place] [address] TROPONIN Ion 11-12-2023 Troponin I.cardiac [Mass/Vol] 0.00 ng/mL Normal 0.00-0.04 [facility] Comment on above: Performed By: #### L [id number] #### [facility] ([facility]) [address] [place] [address] URINALYSISon 11-12-2023 BILIRUBIN, TOTAL PRESENCE IN URINE Negative Normal Negative [facility] Comment on above: Performed By: #### L [id number] ####[facility] [place] [address] Clarity (U) Slightly Cloudy Abnormal Clear [facility] Comment on above: Performed By: #### L [id number] ####[facility] [facility] [place] [address] Color (U) Yellow Normal Yellow [facility] Comment on above: Performed By: #### L [id number] ####[facility] ([facility])[address] [place] [address] Glucose (U) [Mass/Vol] Negative Normal Negative [facility] Comment on above: Performed By: #### L [id number] ####[facility] ([facility])[address] [place] [address] HEMOGLOBIN PRESENCE IN URINE Small Abnormal Negative [facility] Comment on above: Performed By: #### L [id number] ####[facility] ([facility])[address] [place] [address] Ketones Ql (U) Negative Normal Negative [facility] Comment on above: Performed By: #### L [id number] ####[facility] ([facility])[address] [place] [address] LEUKOCYTE ESTERASE PRESENCE IN URINE BY TEST STRIP Moderate Abnormal Negative [facility] Comment on above: Performed By: #### L [id number] ####[facility] ([facility])[address] [place] [address] NITRITE PRESENCE IN URINE Negative Normal Negative [facility] Comment on above: Performed By: #### L [id number] ####[facility] ([facility])[address] [place] [address] pH (U) 7.0 [pH] Normal 5.0-8.0 [facility] Comment on above: Performed By: #### L [id number] ####[facility] ([facility])[address] [place] [address] Protein (U) [Mass/Vol] Negative Normal Negative [facility] Comment on above: Performed By: #### L [id number] ####[facility] ([facility])[address] [place] [address] Specific gravity (U) [Rel density] 1.004 Low 1.015-1.020 [facility] Comment on above: Performed By: #### L [id number] ####[facility] ([facility])[address] [place] [address] URINALYSIS MICROSCOPICon CASTS IN URINE Normal [facility] Comment on above: Performed By: #### L [id number] #### [facility] ([facility]) [address] [place] [address] CRYSTALS IN URINE Normal [facility] Comment on above: Performed By: #### L [id number] #### [facility] ([facility]) [address] [place] [address] RBC (#/HPF) IN URINE SEDIMENT 0-2 Abnormal None Seen [facility] Comment on above: Performed By: #### L [id number] #### [facility] ([facility]) [address] [place] [address] SQUAMOUS EPITHELIAL CELLS (#/HPF) IN URINE SEDIMENT Many Abnormal None Seen, Occasional [facility] Comment on above: Performed By: #### L [id number] #### [facility] ([facility]) [address] [place] [address] WBC (LEUKOCYTE) (#/HPF) IN URINE SEDIMENT 6-10 Abnormal None Seen [facility] Comment on above: Performed By: #### L [id number] #### [facility] ([facility] [address] [place] [address] Complete Blood Count no Diff on 04-03-2023 Erythrocyte distribution width (RBC) [Ratio] 12.6 % Normal 12.2-15.8 [facility] Comment on above: Performed By: #### C BCND #### [place] [place] [address] Hematocrit (Bld) [Volume fraction] 45.5 % High 34.6-44.1 [facility] Comment on above: Performed By: #### C BCND #### [facility] [address] [place] [address] Hemoglobin (Bld) [Mass/Vol] 15.5 g/dL High 11.7-14.9 [facility] Comment on above: Performed By: #### C BCND #### [facility] [address] [place] [address] MCH (RBC) [Entitic mass] 31.2 pg Normal 27.8-33.2 [facility] Comment on above: Performed By: #### C BCND #### [facility] [address] [place] [address] MCV (RBC) [Entitic vol] 91.7 fL Normal 83.0-97.4 [facility] Comment on above: Performed By: #### C BCND #### [place] [place] [address] Mean Corpuscular HGB Conc 34.1 g/dL Normal 32.7-34.8 [facility] Comment on above: Performed By: #### C BCND #### [place] [place] [address] Platelet Count 270 10'3/uL Normal 122-359 [facility] Comment on above: Performed By: #### C BCND #### [place] [address] [place] [address] Platelet mean volume (Bld) [Entitic vol] 10.2 fL Normal 7.6-10.6 [facility] Comment on above: Performed By: #### C BCND #### [place] [address] [place] [address] Red Blood Count 4.96 10'6/uL High 3.85-4.88 [facility] Comment on above: Performed By: #### C BCND #### [place] [place] [address] White Blood Count 7.1 10'3/uL Normal 3.2-9.3 [facility] Comment on above: Performed By: #### C BCND #### [place] [place] [address] Comprehensive Metabolic Pane aurelio 04-03-2023 Albumin [Mass/Vol] 4.1 g/dL Normal 3.5-5.2 [facility] Comment on above: Order Comment: FASTI NG Performed By: #### C M LIPID #### [facility] [address] [place] [address] ALP [Catalytic activity/Vol] 71 U/L Normal 40-150 [facility] Comment on above: Order Comment: FASTI NG Performed By: #### C M, LIPID #### [facility] [address] [place] [address] ALT [Catalytic activity/Vol] 22 U/L Normal 0-55 [facility] Comment on above: Order Comment: FASTI NG Performed By: #### C M, LIPID #### [facility] [address] [place] [address] Anion gap [Moles/Vol] 12 mmol/L Normal 5-13 [facility] Comment on above: Order Comment: FASTI NG Performed By: #### C M, LIPID #### [facility] [address] [place] [address] AST [Catalytic activity/Vol] 17 U/L Normal 5-34 [facility] Comment on above: Order Comment: FASTI NG Performed By: #### C M, LIPID #### [facility] [address] [place] [address] Bilirubin [Mass/Vol] 0.3 mg/dL Normal 0.0-1.0 [facility] Comment on above: Order Comment: FASTI NG Performed By: #### C M, LIPID #### [facility] [address] [place] [address] Calcium [Mass/Vol] 9.0 mg/dL Normal 8.4-10.2 [facility] Comment on above: Order Comment: FASTI NG Performed By: #### C M, LIPID #### [facility] [address] [place] [address] Chloride [Moles/Vol] 104 mmol/L Normal 98-107 [facility] Comment on above: Order Comment: FASTI NG Performed By: #### C M, LIPID #### [facility] [address] [place] [address] CO2 [Moles/Vol] 22 mmol/L Normal 22-29 [facility] Comment on above: Order Comment: FASTI NG Performed By: #### C M, LIPID #### [facility] [address] [place] [address] Creatinine [Mass/Vol] 0.79 mg/dL Normal 0.57-1.11 [facility] Comment on above: Order Comment: FASTI NG Performed By: #### C M, LIPID #### [facility] [address] [place] [address] Glomerular Filtration Rate >60 Normal mL/min/1.73m2 [facility] Comment on above: Order Comment: FASTI NG Performed By: #### C M, LIPID #### [facility] [address] [place] [address] Glucose [Mass/Vol] 114 mg/dL High 70-100 [facility] Comment on above: Order Comment: FASTI NG Performed By: #### C M, LIPID #### [facility] [address] [place] [address] Potassium [Moles/Vol] 3.6 mmol/L Normal 3.5-5.1 [facility] Comment on above: Order Comment: FASTI NG Performed By: #### C M, LIPID #### [facility] [address] [place] [address] Protein [Mass/Vol] 6.7 g/dL Normal 6.4-8.2 [facility] Comment on above: Order Comment: FASTI NG Performed By: #### C M, LIPID #### [facility] [address] [place] [address] Sodium [Moles/Vol] 138 mmol/L Normal 136-145 [facility] Comment on above: Order Comment: FASTI NG Performed By: #### C M, LIPID #### [facility] [address] [place] [address] Urea nitrogen [Mass/Vol] 9 mg/dL Normal 7-18 [facility] Comment on above: Order Comment: FASTI NG Performed By: #### C M, LIPID #### [place] [place] [address] [id number] 04-03-2023 Glucose [Mass/Vol] 105 mg/dL Normal [facility] Comment on above: Result Comment: The suggested goal of therapy for those diagnosed with diabetes is a Hemoglobin A1c value of less than 7.0%. Results greater than 8.0% warrant the need to reassess the treatment regimen. A1c Value Interpretation <5.7% Non-diabetic 5.7-6.4% Increased risk of diabetes Performed By: #### H BA1C #### [place] [place] [address] HbA1c (Bld) [Mass fraction] 5.3 % Normal 4.0-5.6 [facility] Comment on above: Performed By: #### H BA1C #### [address] [address] Lipid Panelon 04-03-2023 Chol HDL Ratio 7.657 Normal [facility] Comment on above: Order Comment: CAMMY CHAUDHRY Result Comment: DRU COWART CHOLESTEROL GUIDELINES NATIONAL [...] Performed By: #### C M, LIPID #### [place] [address] [place] [address] Cholesterol [Mass/Vol] 291 mg/dL High <200 [facility] Comment on above: Order Comment: FASTI NG Performed By: #### C M, LIPID #### [facility] [address] [place] [address] Cholesterol in HDL [Mass/Vol] 38 mg/dL Low 45-60 [facility] Comment on above: Order Comment: FASTI NG Performed By: #### C M, LIPID #### [place] [address] [place] [address] Cholesterol in LDL [Mass/Vol] 196 mg/dL High <100 [facility] Comment on above: Order Comment: FASTI NG Performed By: #### C M, LIPID #### [place] [address] [place] [address] Triglyceride [Mass/Vol] 284 mg/dL High <150 [facility] Comment on above: Order Comment: FASTI NG Performed By: #### C M, LIPID #### [place] [place] [address] VLDL CHOLESTEROL 57 mg/dL High 5-35 [facility] Comment on above: Order Comment: FASTI NG Performed By: #### C M, LIPID #### [place] [address] [place] [address] Microalbumin, Random Urineon 04-03-2023 Creatinine (U) [Mass/Vol] 336.1 mg/dL High 47.0-110.0 [facility] Comment on above: Performed By: #### M ALB #### [facility] [address] [place] [address] MALB/Creat Ratio 5.2 mg/G Normal <30.0 [facility] Comment on above: Performed By: #### M ALB #### [facility] [address] [place] [address] Microalbumin Random Urine 17.6 mg/L Normal [facility] Comment on above: Performed By: #### M ALB #### [facility] [address] [place] [address] Seema 03-11-2023 [facility] [address] [place] [address] Office Visit Report Signed Patient Name: Raimundo Mendez Date of : 1985 Age/Sex: 37 / F Date of Service: Location: [facility] [place] Attending physician: Mari Blair DEVELOPER SUPPORT ENGINEER Intake Vital Signs 03/11/23 14:22 03/11/23 14:31 [...] on her right big toe checked out. [facility] Medical History (Updated 03/11/23 @ 15:55 by Mari Blair, DEVELOPER SUPPORT ENGINEER) Acute mucoid otitis media of both ears [...] No ga (more content not included)... Normal [facility] No Panel InformationOrdered By: Mari Blair on 03-11-2023 Flu A [facility] Alcohol Bloodon 11-16-2022 ALCO-B <10 Normal <10 [facility] Comment on above: Order Comment: Testi ng performed at [facility], [address] [place] [address] Result Comment: < 10 mg/dL = None [...] fatal coma. Draw Site Right Antecubital Normal [facility] Comment on above: Order Comment: Testi ng performed at [facility], [address] [place] [address] Duplicator Punch Set Up Operator Name oscar waller Normal [facility] Comment on above: Order Comment: Testi ng performed at [facility], [address] [place] [address] Skin Prep Used Betadine Normal [facility] Comment on above: Order Comment: Testi ng performed at [facility], [address] [place], [place] [id number] Seema 10-17-2022 [facility] [place] [address] Office Visit Report Signed Patient Name: Raimundo Mendez Date of : 1985 Age/Sex: 37 / F Date of Service: Location: [facility] [place] Attending physician: Mari Blair DEVELOPER SUPPORT ENGINEER Intake Vital Signs 10/17/22 15:12 10/17/22 15:16 [...] here for UTI sx that started Saturday. [facility] Medical History (Updated 10/18/22 @ 17:32 by [...] not specified (more content not included)... Normal [facility] CT HEAD W/O CONTRASTon 03-18 CT HEAD W/O CONTRAST [facility] Name: RAIMUNDO MENDEZ : 1985 Unit #: [id number] Age: 34 Attending Physician: Pt Location: ER [...] FLY AGUIRRE M.D. Date Trans: 03/18/20 0956 [facility] [id number] cc: JOSEPH COKER MD-LORY GARCIAS M.D. Normal [facility] HISTORY PRESENT ILLNESSon HISTORY PRESENT ILLNESS Name: RAIMUNDO MENDEZ : 1985 Unit #: [id number] Age: 34 Family Physician: Pt Location: ER Arrival Date 03/17/20 - 2157 ER Physician: JOSEPH COKER MD-ED [facility] History of Present Illness History [...] Stable Patient Instructions: Bonilla Palsy (ED) Referrals: LORY TREVINO M.D. (PCP) 2-3 Days Home Medications: [...] COKER MD 03/17/20 2302 JOSEPH COKER MD [id number] cc: LORY TREVINO M.D. Normal [facility] CHEST - PORTABLEon 0 CHEST - PORTABLE [facility] Name: RAIMUNDO MENDEZ : 1985 Unit #: [id number] Age: 34 Attending Physician: Pt Location: ER [...] 09/28/19 1314 ARTEM JOSE M.D. Date Dict: 09/28/191309 ARTEM JOSE M.D. Date Trans: 09/28/191309 [facility] [id number] cc: LORY TREVINO M.D.-[facility] ALE GRIFFIN MD-ER Normal [facility] HISTORY PRESENT ILLNESSon HISTORY PRESENT ILLNESS Name: RAIMUNDO MENDEZ : 1985 Unit #: [id number] Age: 34 Family Physician: Pt Location: ER Arrival Date 09/28/19 - 1042 ER Physician: ALE GRIFFIN MD-ER [facility] History of Present Illness History [...] COVID-19 (Coronavirus Disease 2019) (ED) [facility]4 Days Home Medications: Reviewed Departure Forms: Patient Health Portal, Report of Work Ability Return to Work Date: Oct 10, 2019 ALE GRIFFIN MD-ER Sep 28, 2019 12:24 (Please note that portions of this note were completed with a voice recognition program. Efforts were made to edit the dictations but occasionally words are mis-transcribed.) Electronically Signed by: ALE GRIFFIN MD 09/28/19 1336 ALE GRIFFIN MD [id number] cc: Normal [facility] HISTORY PRESENT ILLNESSon HISTORY PRESENT ILLNESS Name: RAIMUNDO MENDEZ : 1985 Unit #: [id number] Age: 34 Family Physician: Pt Location: ER Arrival Date 08/23/19 - 1116 ER Physician: ALE GRIFFIN MD-IMANI [facility] History of Present Illness History [...] Tylenol for pain as needed. [facility]3 Days Home Medications: Reviewed Scripts Doxycycline Hyclate (Doxycycline Hyclate *) 100 Mg Capsule 100 MG PO BID for 7 Days, #14 CAPSULE Prov: ROMRadhaSHERRIE A P.A. 08/23/19 Acyclovir (Acyclovir) 400 Mg Tablet 1 TAB PO TID for 10 Days, #30 TAB Prov: ROMP,SHERRIE A P.A. 08/23/19 ROMP,SHERRIE A P.A. August 23, 2019 12:18 (Please note that portions of this note were completed with a voice recognition program. Efforts were made to edit the dictations but occasionally words are mis-transcribed.) Electronically Signed by: SHERRIE LOPEZ A P.A. 08/23/19 1736 SHERRIE LOPEZ P.A. [id number] cc: Normal [facility] HISTORY PRESENT ILLNESS Name: RAIMUNDO MENDEZ : 1985 Unit #: [id number] Age: 34 Family Physician: Pt Location: ER Arrival Date 08/23/19 - 1116 ER Physician: ALE GRIFFIN MD-ER [facility] Attending Attestation Attending Attestation I performed a history and physical examination of the patient and discussed management with the DEVELOPER SUPPORT ENGINEER/PA. I reviewed the DEVELOPER SUPPORT ENGINEER/PA's note and agree with the documented findings [...] and Medical Decision Making performed by the DEVELOPER SUPPORT ENGINEER/PA is based on my personal performance of the HPI, PE and MDM. For DEVELOPER SUPPORT ENGINEER/PA cases/ documentation I have personally evaluated this [...] GRIFFIN MD 08/23/19 1218 ALE GRIFFIN MD [id number] cc: Normal [facility] CBCon 05-05-2019 Erythrocyte distribution width (RBC) [Ratio] 13.5 % Normal 12.2-15.8 [facility] Comment on above: Performed By: #### C BCN #### [facility] CLIA # [id number] [address] [place] [address] Hematocrit (Bld) [Volume fraction] 40.7 % Normal 34.6-44.1 [facility] Comment on above: Performed By: #### C BCN #### [facility] CLIA # [id number] [address] [facility] [place] [address] Hemoglobin (Bld) [Mass/Vol] 14.3 g/dL Normal 11.7-14.9 [facility] Comment on above: Performed By: #### C BCN #### [facility] CLIA # [id number] [address] [facility] [place] [address] MCH (RBC) [Entitic mass] 32.3 pg Normal 27.8-33.2 [facility] Comment on above: Performed By: #### C BCN #### [facility] CLIA # [id number] [address] [facility] [place] [address] MCH (RBC) [Entitic mass] 35.0 g/dL High 32.7-34.8 [facility] Comment on above: Performed By: #### C BCN #### [facility] CLIA # [id number] [address] [facility] [place] [address] MCV (RBC) [Entitic vol] 92.3 fL Normal 83.0-97.4 [facility] Comment on above: Performed By: #### C BCN #### [facility] CLIA # [id number] [address] [place] [address] Platelet mean volume (Bld) [Entitic vol] 10.4 fL Normal 7.6-10.6 [facility] Comment on above: Performed By: #### C BCN #### [facility] CLIA # [id number] [address] [facility] [place] [address] Platelets (Bld) [#/Vol] 238 10'3/uL Normal 122-359 [facility] Comment on above: Performed By: #### C BCN #### [facility] CLIA # [id number] [address] [facility] [place] [address] RBC (Bld) [#/Vol] 4.41 10'6/uL Normal 3.85-4.88 [facility] Comment on above: Performed By: #### C BCN #### [facility] CLIA # [id number] [address] [facility] [place] [address] WBC (Bld) [#/Vol] 6.7 10'3/uL Normal 3.2-9.3 [facility] Comment on above: Performed By: #### C BCN #### [facility] CLIA # [id number] [address] [facility] [place] [address] FERRITINon 05-05-2019 Ferritin [Mass/Vol] 110.6 ng/mL Normal 8-388 [facility] Comment on above: Performed By: #### T SH, STELLA #### [facility] CLIA # [id number] [address] [facility] [place] [address] TSH 3RD GENERATIONon 020 TSH 3RD GENERATION 1.093 uIU/mL Normal 0.358-3.74 [facility] Comment on above: Performed By: #### T SH, STELLA #### [facility] CLIA # [id number] [address] [place] [address] [id number] 04-15-2019 HbA1c (Bld) [Mass fraction] 5.4 % Normal 4.0-5.6 [facility] Comment on above: Performed By: #### H BA1C #### [facility] CLIA # [id number] [address] [place] [address] HbA1c (Bld) [Mass fraction] 108 mg/dL Normal [facility] Comment on above: Result Comment: THE SUGGESTED [...] Medical Care in Diabetes-2017 Diabetes Care 2017 Nate; 40 (Supplement 1): S11-S14 Performed By: #### H BA1C #### [facility] CLIA # [id number] [address] [place] [address] HSV RAPID CULTUREon 04-04-19 20 HSV RAPID CULTURE HSV RAPID CULTURE see below Normal [facility] Comment on above: Order Comment: Has S pecimen Been Collected? Y Antibiotics Taken/Given Before Culture Obtained: N HERPES SIMPLEX VIRUS CULTURE SOURCE : TON RESULT Not Isolated Reference Range: Not Isolated Test Performed by [facility], [address] [place] [id number] Jovanny Aguila M.D., Ph.D., Director of Laboratories , CLIA [id number] HISTORY PRESENT ILLNESSon HISTORY PRESENT ILLNESS Name: RAIMUNDO RHODES : 1985 Unit #: [id number] Age: 33 Family Physician: Pt Location: ER Arrival Date 03/29/19 - 1326 ER Physician: ALE GRIFFIN MD-ER 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 She tells me now that she has [...] Patient Instructions: Gingivostomatitis (ED) Referrals: LORY TREVINO M.D.-[facility] ([facility]) 2-3 Days Home Medications: Reviewed Scripts [...] GRIFFIN MD 03/29/19 1412 ALE GRIFFIN MD [id number] cc: Normal [facility] HISTORY PRESENT ILLNESSon HISTORY PRESENT ILLNESS Name: RAIMUNDO RHODES : 1985 Unit #: [id number] Age: 33 Family Physician: Pt Location: ER Arrival Date 12/24/18917 ER Physician: DALLAS VIDAL MD [facility] History Present Illness General Time Patient Was Seen: 09:30 Brought By: Mother Mode of Arrival: Ambulatory History of Present Illness Stated Complaint: fever blisters and congestion Initial Comments 33 yo F presents w/ c/o fever, sore throat, and mouth blisters, and congestion since saturday. [facility] [...] VIDAL MD 12/27/18 1329 DALLAS VIDAL MD [phone] cc: Normal [facility] C-Reactive Proteinon 019 CRP [Mass/Vol] 13.5 mg/L High 0.0-10.0 [facility] Comment on above: Order Comment: Testi ng performed at [facility], [address] [place] [address] [place] Order: [id number] Cyclic Citrulline Peptide AB on 09-29-2018 CCP IgG >300.0 High 0.0-2.9 [facility] Comment on above: Order Comment: Tests performed by: [facility] #[id number], [address] [place], [address], [place] Order: [id number] Result Comment: Nega tive: 0.0-2.9 U/mL Positive: >2.9 U/mL RA Factoron 09-29-2018 RA Factor 264 IU/mL High 0-15 [facility] Comment on above: Order Comment: Tests performed by: [facility] #[id number], [address] [place], [address], [place] Order: [id number] VU VENOUS DUPLEX LOWER EXT U NILAT [...] Matthew MD On: 09/29/2018 4:47 PM Normal [facility] B-type Natriuretic peptideon 09-09-2018 Natriuretic peptide B (Bld) [Mass/Vol] pg/mL Normal <101 [facility] Comment on above: Order Comment: Testi ng performed at [facility], [address] [place] [address] Host Order: [id number] Basic Metabolic Profileon Anion gap [Moles/Vol] 13 mmol/L Normal 12-20 [facility] Comment on above: Order Comment: Testi ng performed at [facility], [address] [place] [address] Host Order: [id number] Calcium [Mass/Vol] 9.8 mg/dL Normal 8.4-10.2 [facility] Comment on above: Order Comment: Testi ng performed at [facility], [address] [place] [address] Host Order: [id number] Chloride [Moles/Vol] 101 mmol/L Normal 98-107 [facility] Comment on above: Order Comment: Testi ng performed at [facility], [address] [place] [address] Host Order: [id number] Creatinine [Mass/Vol] 0.6 mg/dL Normal 0.6-1.2 [facility] Comment on above: Order Comment: Testi ng performed at [facility], [address] [place] [address] Host Order: [id number] Glucose [Mass/Vol] 93 mg/dL Normal 74-106 [facility] Comment on above: Order Comment: Testi ng performed at [facility], [address] [place] [address] Host Order: [id number] Potassium [Moles/Vol] 3.9 mmol/L Normal 3.3-4.9 [facility] Comment on above: Order Comment: Testi ng performed at [facility], [address] [place], [place] [address] Host Order: [id number] Sodium [Moles/Vol] 139 mmol/L Normal 137-145 [facility] Comment on above: Order Comment: Testi ng performed at [facility], [address] [place], [place] [address] Host Order: [id number] Total CO2 29.0 mEq/L Normal 22.0-30.0 [facility] Comment on above: Order Comment: Testi ng performed at [facility], [address] [place] [address] Host Order: [id number] Urea nitrogen [Mass/Vol] 16 mg/dL Normal 8-19 [facility] Comment on above: Order Comment: Testi ng performed at [facility], [address] [place] [address] Host Order: [id number] CBC w/Auto Diffon 09-09-2018 Basophils (Bld) [#/Vol] 0.03 10*3/uL Normal 0.00-0.10 [facility] Comment on above: Order Comment: Immature [...] is no longer indicated. Testing performed at [facility], [address] [place] [address] Host Order: [id number] Basophils/100 WBC (Bld) 0.3 % Normal 0.1-1.2 [facility] Comment on above: Order Comment: Immature [...] is no longer indicated. Testing performed at [facility], [address] [place] [address] Host Order: [id number] Eosinophils (Bld) [#/Vol] 0.11 10*3/uL Normal 0.00-0.40 [facility] Comment on above: Order Comment: Immature [...] is no longer indicated. Testing performed at [facility], [address] [place] [address] Host Order: [id number] Eosinophils/100 WBC (Bld) 1.1 % Normal 0.7-5.8 [facility] Comment on above: Order Comment: Immature [...] is no longer indicated. Testing performed at [facility], [address] [place] [address] Host Order: [id number] Erythrocyte distribution width (RBC) [Ratio] 13.1 % Normal 11.7-14.4 [facility] Comment on above: Order Comment: Immature [...] is no longer indicated. Testing performed at [facility], [address] [place] [address] Host Order: [id number] Hematocrit (Bld) [Volume fraction] 40.9 % Normal 34.1-44.9 [facility] Comment on above: Order Comment: Immature [...] is no longer indicated. Testing performed at [facility], [address] [place] [address] Host Order: [id number] Hemoglobin (Bld) [Mass/Vol] 13.9 g/dL Normal 11.2-15.7 [facility] Comment on above: Order Comment: Immature [...] is no longer indicated. Testing performed at [facility], [address] [place], [place] [address] Host Order: [id number] Immature Gran % 0.4 % Normal 0.0-0.4 [facility] Comment on above: Order Comment: Immature [...] is no longer indicated. Testing performed at [facility], [address] [place], [place] [address] Host Order: [id number] Immature Gran Count 0.04 10*3/uL High 0.00-0.00 [facility] Comment on above: Order Comment: Immature [...] is no longer indicated. Testing performed at [facility], [address] [place] [address] Host Order: [id number] Lymphocytes (Bld) [#/Vol] 1.73 10*3/uL Normal 1.20-3.70 [facility] Comment on above: Order Comment: Immature [...] is no longer indicated. Testing performed at [facility], [address] [place] [address] Host Order: [id number] Lymphocytes/100 WBC (Bld) 18.0 % Low 19.3-51.7 [facility] Comment on above: Order Comment: Immature [...] is no longer indicated. Testing performed at [facility], [address] [place] [address] Host Order: [id number] MCH (RBC) [Entitic mass] 31.6 pg Normal 25.6-32.2 [facility] Comment on above: Order Comment: Immature [...] is no longer indicated. Testing performed at [facility], [address] [place] [address] Host Order: [id number] MCHC (RBC) [Mass/Vol] 34.0 g/dL Normal 32.2-35.5 [facility] Comment on above: Order Comment: Immature [...] is no longer indicated. Testing performed at [facility], [address] [place] [address] Host Order: [id number] MCV (RBC) [Entitic vol] 93.0 fL Normal 79.4-94.8 [facility] Comment on above: Order Comment: Immature [...] is no longer indicated. Testing performed at [facility], [address] [place] [address] Host Order: [id number] Monocytes (Bld) [#/Vol] 0.54 10*3/uL Normal 0.20-0.90 [facility] Comment on above: Order Comment: Immature [...] is no longer indicated. Testing performed at [facility], [address] [place] [address] Host Order: [id number] Monocytes/100 WBC (Bld) 5.6 % Normal 4.7-12.5 [facility] Comment on above: Order Comment: Immature [...] is no longer indicated. Testing performed at [facility], [address] [place] [address] Host Order: [id number] Neutrophils (Bld) [#/Vol] 7.17 10*3/uL High 1.60-6.10 [facility] Comment on above: Order Comment: Immature [...] is no longer indicated. Testing performed at [facility], [address] [place] [address] Host Order: [id number] Neutrophils/100 WBC (Bld) 74.6 % High 34.0-71.1 [facility] Comment on above: Order Comment: Immature [...] is no longer indicated. Testing performed at [facility], [address] [place] [address] Host Order: [id number] Nucleated RBC (Bld) [#/Vol] 0.00 10*3/uL Normal 0.00-0.00 [facility] Comment on above: Order Comment: Immature [...] is no longer indicated. Testing performed at [facility], [address] [place] [address] Host Order: [id number] Nucleated RBC/100 WBC (Bld) [Ratio] 0.0 /100{WBC} Normal 0.0-0.2 [facility] Comment on above: Order Comment: Immature [...] is no longer indicated. Testing performed at [facility], [address] [place] [address] Host Order: [id number] Platelet mean volume (Bld) [Entitic vol] 10.9 fL Normal 9.4-12.3 [facility] Comment on above: Order Comment: Immature [...] is no longer indicated. Testing performed at [facility], [address] [place] [address] Host Order: [id number] Platelets (Bld) [#/Vol] 229 10*3/uL Normal 182-369 [facility] Comment on above: Order Comment: Immature [...] is no longer indicated. Testing performed at [facility], [address] [place] [address] Host Order: [id number] RBC (Bld) [#/Vol] 4.40 10*6/uL Normal 3.93-5.22 [facility] Comment on above: Order Comment: [...] is no longer indicated. Testing performed at [facility], [address] [place] [address] Host Order: [id number] RDW-SD 44.4 fL Normal 36.4-46.3 [facility] Comment on above: Order Comment: Immature [...] is no longer indicated. Testing performed at [facility], [address] [place] [address] Host Order: [id number] WBC (Bld) [#/Vol] 9.6 10*3/uL Normal 4.0-10.0 [facility] Comment on above: Order Comment: Immature [...] is no longer indicated. Testing performed at [facility], [address] [place] [address] Host Order: [id number] CHEST PA AP LAT 2 VIEWSon CHEST [...] Landry MD On: 09/09/2018 5:41 PM Normal [facility] D-Dimer, Quanton 09-09-2018 D-Dimer, Quant 357 ng/mL Normal <400 [facility] Comment on above: Order Comment: Testi ng performed at [facility], [address] [place] [address] Host Order: [id number] EST Glomerular Filtration Ra lilo 09-09-2018 GFR/1.73 sq M predicted among non-blacks MDRD (S/P/Bld) [Vol rate/Area] mL/min/{1.73_m2} Normal >60 [facility] Comment on above: Order Comment: Kevin holcomb Order: [id number] The calculated GFR uses the (IDMS)-traceable creatinine MDRD equation and is reported in mL/min/1.73 square meters. This formula is not recommended for use with individuals with unstable creatinine concentrations, extremes in muscle mass and/or body size, or alternative diets and may not be suitable for all patient populations. Testing performed at [facility], [address] [place], [place] [id number] Result Comment: The reported eGFR is based on a non- patient, for Americans multiply the result by 1.212. Troponin Ion 09-09-2018 Troponin I.cardiac [Mass/Vol] ng/mL Normal 0.00-0.12 [facility] Comment on above: Order Comment: Pamela chaudhry performed at [facility], [address] [place] [address] Host Order: [id number] Result Comment: AMI diagnostic cut-off is 0.120 [...] NO SIGNIFICANT GROWTH Report Status FINAL 08/16/2018 Normal [facility] Comment on above: Performed By: #### C OLI #### [facility] [employer] [facility] [employer] [address] [place] [address] Grocery Bagger: Bebo Sarmiento MD Comp Metabolic Profon 2018 (cont.) [facility] Comment on above: Result Comment: Aver age GFR for 30-39 years old: 107 mL/min/1.73sq m Chronic Kidney Disease: <60 mL/min/1.73sq m Kidney failure: <15 mL/min/1.73sq m eGFR calculated using average adult body mass. Additional eGFR calculator available at: http://www.All[employer].com/multiple_crcl_2012.htm Performed By: #### C CHERRIE, CP, LIPR, TSHX #### [facility] [address] [place] [address] Grocery Bagger: Bebo Sarmiento MD Albumin [Mass/Vol] 4.4 g/dL Normal 3.5-5.2 [facility] Comment on above: Performed By: #### C DP, CP, LIPR, TSHX #### [facility] [employer] [address] [place] [address] Grocery Bagger: Bebo Sarmiento MD Albumin/Globulin [Mass ratio] 1.9 {ratio} Normal 1.0-2.5 [facility] Comment on above: Performed By: #### C DP, CP, LIPR, TSHX #### [facility] [employer] [address] [place] [address] Grocery Bagger: Bebo Sarmiento MD Alkaline Phos 80 U/L Normal 35-104 [facility] Comment on above: Performed By: #### C DP, CP, LIPR, TSHX #### [facility] [employer] [address] [place] [address] Grocery Bagger: Bebo Sarmiento MD ALT [Catalytic activity/Vol] 17 U/L Normal 5-33 [facility] Comment on above: Performed By: #### C DP, CP, LIPR, TSHX #### [address] [address] Grocery Bagger: Bebo Sarmiento MD Anion gap [Moles/Vol] 14 mmol/L Normal 9-17 [facility] Comment on above: Performed By: #### C DP, CP, LIPR, TSHX #### [address] [address] Grocery Bagger: Bebo Sarmiento MD AST [Catalytic activity/Vol] 11 U/L Normal <32 [facility] Comment on above: Performed By: #### C DP, CP, LIPR, TSHX #### [facility] [employer] [address] [place] [address] Grocery Bagger: Bebo Sarmiento MD Bilirubin Ql (U) 0.21 mg/dL Low 0.3-1.2 [facility] Comment on above: Performed By: #### C DP, CP, LIPR, TSHX #### [facility] [employer] [address] [place] [address] Grocery Bagger: Bebo Sarmiento MD Calcium [Mass/Vol] 9.5 mg/dL Normal 8.6-10.4 [facility] Comment on above: Performed By: #### C DP, CP, LIPR, TSHX #### [facility] [employer] [address] [place] [address] Grocery Bagger: Bebo Sarmiento MD Chloride [Moles/Vol] 101 mmol/L Normal 98-107 [facility] Comment on above: Performed By: #### C DP, CP, LIPR, TSHX #### [facility] [employer] [address] [place] [address] Grocery Bagger: Bebo Sarmiento MD CO2 [Moles/Vol] 24 mmol/L Normal 20-31 [facility] Comment on above: Performed By: #### C DP, CP, LIPR, TSHX #### [facility] [employer] [address] [place] [address] Grocery Bagger: Bebo Sarmiento MD Creatinine [Mass/Vol] 0.53 mg/dL Normal 0.50-0.90 [facility] Comment on above: Performed By: #### C DP, CP, LIPR, TSHX #### [address] [address] Grocery Bagger: Bebo Sarmiento MD GFR, Amer >60 Normal >60 [facility] Comment on above: Performed By: #### C DP, CP, LIPR, TSHX #### [facility] [employer] [address] [place] [address] Grocery Bagger: Bebo Sarmiento MD GFR,non Amer >60 Normal >60 [facility] Comment on above: Performed By: #### C DP, CP, LIPR, TSHX #### [facility] [employer] [address] [place] [address] Grocery Bagger: Bebo Sarmiento MD Glucose [Mass/Vol] 91 mg/dL Normal 70-99 [facility] Comment on above: Performed By: #### C DP, CP, LIPR, TSHX #### [address] [address] Grocery Bagger: Bebo Sarmiento MD Potassium [Moles/Vol] 4.8 mmol/L Normal 3.7-5.3 [facility] Comment on above: Performed By: #### C DP, CP, LIPR, TSHX #### [address] [address] Grocery Bagger: Bebo Sarmiento MD Protein [Mass/Vol] 6.7 g/dL Normal 6.4-8.3 [facility] Comment on above: Performed By: #### C DP, CP, LIPR, TSHX #### [address] [address] Grocery Bagger: Bebo Sarmiento MD Sodium [Moles/Vol] 139 mmol/L Normal 135-144 [facility] Comment on above: Performed By: #### C DP, CP, LIPR, TSHX #### [facility] [employer] [address] [place] [address] Grocery Bagger: Bebo Sarmiento MD Urea nitrogen [Mass/Vol] 13 mg/dL Normal 6-20 [facility] Comment on above: Performed By: #### C DP, CP, LIPR, TSHX #### [facility] [employer] [address] [place] [address] Grocery Bagger: Bebo Sarmiento MD Lipid Profileon 08-15-2018 Cholesterol [Mass/Vol] 265 mg/dL High <200 [facility] Comment on above: Result Comment: Cholesterol Guidelines: <200 Desirable 200-240 Borderline >240 Undesirable Performed By: #### C DP, CP, LIPR, TSHX #### [address] [phone] Grocery Bagger: Bebo Sarmiento MD Cholesterol in HDL [Mass/Vol] 31 mg/dL Low >40 [facility] Comment on above: Result Comment: HDL Guidelines: <40 Undesirable 40-59 Borderline >59 Desirable Performed By: #### C DP, CP, LIPR, TSHX #### [address] [phone] Grocery Bagger: Bebo Sarmiento MD Cholesterol in LDL [Mass/Vol] 182 mg/dL High 0-130 [facility] Comment on above: Result Comment: LDL Guidelines: <100 Desirable 100-129 Near to/above Desirable 130-159 Borderline >159 Undesirable Direct (measured) LDL and calculated LDL are not interchangeable tests. Performed By: #### C DP, CP, LIPR, TSHX #### [place] [address] Grocery Bagger: Bebo Sarmiento MD Cholesterol.total/Cho lesterol in HDL [Mass ratio] 8.5 {ratio} High <5 [facility] Comment on above: Performed By: #### C DP, CP, LIPR, TSHX #### [place] [address] Grocery Bagger: Bebo Sarmiento MD Triglyceride [Mass/Vol] 258 mg/dL High <150 [facility] Comment on above: Result Comment: Triglyceride Guidelines: <150 Desirable 150-199 Borderline 200-499 High >499 Very high Based on AHA Guidelines for fasting triglyceride, December 2011. Performed By: #### C DP, CP, LIPR, TSHX #### [facility] [employer] [address] [place] [address] Grocery Bagger: Bebo Sarmiento MD TSH w/reflex to FT4on 2018 TSH Qn 2.50 m[IU]/L Normal 0.30-5.00 [facility] Comment on above: Performed By: #### C DP, CP, LIPR, TSHX #### [address] [address] Grocery Bagger: Bebo Sarmiento MD Urinalysis,Microon 9 ----- Normal [facility] Comment on above: Performed By: #### U MICAO, UAX #### [address] [address] Grocery Bagger: Bebo Sarmiento MD Bacteria LM.HPF (Urine sed) [#/Area] MANY Abnormal NONE [facility] Comment on above: Performed By: #### U MICAO, UAX #### [address] [address] Grocery Bagger: Bebo Sarmiento MD Casts LM.LPF (Urine sed) [#/Area] 5 TO 10 HYALINE Normal 0-8 [facility] Comment on above: Result Comment: Refe rence range defined for non-centrifuged specimen. Performed By: #### U MICAO, UAX #### [address] [address] Grocery Bagger: Bebo Sarmiento MD Epithelial cells LM.HPF (Urine sed) [#/Area] 10 TO 20 Normal 0-5 [facility] Comment on above: Performed By: #### U MICAO, UAX #### [address] [address] Grocery Bagger: Bebo Sarmiento MD RBC (U) [#/Vol] 2 TO 5 Normal 0-4 [facility] Comment on above: Result Comment: Refe rence range defined for non-centrifuged specimen. Performed By: #### U MICAO, UAX #### [address] [address] Grocery Bagger: Bebo Sarmiento MD WBC (U) [#/Vol] 20 TO 50 Normal 0-5 [facility] Comment on above: Performed By: #### U MICAO, UAX #### [address] [address] Grocery Bagger: Bebo Sarmiento MD CBC with Diffon 08-14-2018 Abs. Basophil 0.05 k/uL Normal 0.00-0.20 [facility] Comment on above: Performed By: #### C DP, CP, LIPR, TSHX #### [address] [address] Grocery Bagger: Bebo Sarmiento MD Abs.Imm.Granulocyte 0.03 k/uL Normal 0.00-0.30 [facility] Comment on above: Performed By: #### C DP, CP, LIPR, TSHX #### [address] [address] Grocery Bagger: Bebo Sarmiento MD Abs.Neutrophil (Seg) 6.32 k/uL Normal 1.50-8.10 [facility] Comment on above: Performed By: #### C DP, CP, LIPR, TSHX #### [address] [address] Grocery Bagger: Bebo Sarmiento MD Basophils/100 WBC (Bld) 1 % Normal 0-2 [facility] Comment on above: Performed By: #### C DP, CP, LIPR, TSHX #### [address] [address] Grocery Bagger: Bebo Sarmiento MD Eosinophils (Bld) [#/Vol] 0.08 10*3/uL Normal 0.00-0.44 [facility] Comment on above: Performed By: #### C DP, CP, LIPR, TSHX #### [address] [address] Grocery Bagger: Bebo Sarmiento MD Eosinophils/100 WBC (Bld) 1 % Normal 1-4 [facility] Comment on above: Performed By: #### C DP, CP, LIPR, TSHX #### [address] [address] Grocery Bagger: Bebo Sarmiento MD Erythrocyte distribution width (RBC) [Ratio] 13.0 % Normal 11.8-14.4 [facility] Comment on above: Performed By: #### C DP, CP, LIPR, TSHX #### [place] [address] Grocery Bagger: Bebo Sarmiento MD Hematocrit (Bld) [Volume fraction] 43.2 % Normal 36.3-47.1 [facility] Comment on above: Performed By: #### C DP, CP, LIPR, TSHX #### [place] [address] Grocery Bagger: Bebo Sarmiento MD Hemoglobin (Bld) [Mass/Vol] 14.0 g/dL Normal 11.9-15.1 [facility] Comment on above: Performed By: #### C DP, CP, LIPR, TSHX #### [place] [address] Grocery Bagger: Bebo Sarmiento MD Immature granulocytes (Bld) [#/Vol] 0 % Normal 0 [facility] Comment on above: Performed By: #### C DP, CP, LIPR, TSHX #### [place] [address] Grocery Bagger: Bebo Sarmiento MD Lymphocytes (Bld) [#/Vol] 1.96 10*3/uL Normal 1.10-3.70 [facility] Comment on above: Performed By: #### C DP, CP, LIPR, TSHX #### [place] [address] Grocery [employer]agger: Bebo Sarmiento MD Lymphocytes/100 WBC (Bld) 21 % Low 24-43 [facility] Comment on above: Performed By: #### C DP, CP, LIPR, TSHX #### [address] [address] Grocery Bagger: Bebo Sarmiento MD MCH (RBC) [Entitic mass] 31.3 pg Normal 25.2-33.5 [facility] Comment on above: Performed By: #### C DP, CP, LIPR, TSHX #### [address] [address] Grocery Bagger: Bebo Sarmiento MD MCHC (RBC) [Mass/Vol] 32.4 g/dL Normal 28.4-34.8 [facility] Comment on above: Performed By: #### C DP, CP, LIPR, TSHX #### [address] [address] Grocery Bagger: Bebo Sarmiento MD MCV (RBC) [Entitic vol] 96.4 fL Normal 82.6-102.9 [facility] Comment on above: Performed By: #### C DP, CP, LIPR, TSHX #### [address] [address] Grocery Bagger: Bebo Sarmiento MD Monocytes (Bld) [#/Vol] 0.81 10*3/uL Normal 0.10-1.20 [facility] Comment on above: Performed By: #### C DP, CP, LIPR, TSHX #### [address] [address] Grocery Bagger: Bebo Sarmiento MD Monocytes/100 WBC (Bld) 9 % Normal 3-12 [facility] Comment on above: Performed By: #### C DP, CP, LIPR, TSHX #### [address] [address] Grocery Bagger: Bebo Sarmiento MD Neutrophil (Seg) 68 % High 36-65 [facility] Comment on above: Performed By: #### C DP, CP, LIPR, TSHX #### [address] [address] Grocery Bagger: Bebo Sarmeinto MD NRBC Automated 0.0 per 100 WBC Normal 0.0 [facility] Comment on above: Performed By: #### C DP, CP, LIPR, TSHX #### [place] [address] Grocery Bagger: Bebo Sarmiento MD Platelet mean volume (Bld) [Entitic vol] 12.1 fL Normal 8.1-13.5 [facility] Comment on above: Performed By: #### C DP, CP, LIPR, TSHX #### [place] [address] Grocery Bagger: Bebo Sarmiento MD Platelets (Bld) [#/Vol] 236 10*3/uL Normal 138-453 [facility] Comment on above: Performed By: #### C DP, CP, LIPR, TSHX #### [address] [address] Grocery Bagger: Bebo Sarmiento MD RBC (Bld) [#/Vol] 4.48 10*6/uL Normal 3.95-5.11 [facility] Comment on above: Performed By: #### C DP, CP, LIPR, TSHX #### [place] [address] Grocery Bagger: Bebo Sarmiento MD WBC (Bld) [#/Vol] 9.3 10*3/uL Normal 3.5-11.3 [facility] Comment on above: Performed By: #### C DP, CP, LIPR, TSHX #### [address] [address] Grocery Bagger: Bebo Sarmiento MD Auto Diff Performed NOT REPORTED Normal [facility] Comment on above: Performed By: #### C DP, CP, LIPR, TSHX #### [facility] [place] [address] Grocery Bagger: Bebo Sarmiento MD Platelets (Bld) [#/Vol] NOT REPORTED Normal [facility] Comment on above: Performed By: #### C DP, CP, LIPR, TSHX #### [facility] [address] [place] [address] Grocery Bagger: Bebo Sarmiento MD RBC morphology finding Nom (Bld) NOT REPORTED Normal [facility] Comment on above: Performed By: #### C DP, CP, LIPR, TSHX #### [facility] [address] [place] [address] Grocery Bagger: Bebo Sarmiento MD WBC Morphology NOT REPORTED Normal [facility] Comment on above: Performed By: #### C DP, CP, LIPR, TSHX #### [facility] [address] [place] [address] Grocery Bagger: Bebo Sarmiento MD Cardiacon 08-14-2018 Cholesterol [Mass/Vol] 265 mg/dL High (<200) [facility] Work Phone: Comment on above: Note: Cholesterol Gu idelines: <200 Desirable 200-240 Borderline >240 Undesirable Responsible Observer: CEEV [employer]OFILE (8993) Triglyceride [Mass/Vol] 258 mg/dL High (<150) [facility] Work Phone: Comment on above: Note: Triglyceride G uidelines: <150 Desirable 150-199 Borderline 200-499 High >499 Very high Based on AHA Guidelines for fasting triglyceride, December 2011. Responsible Observer: CEEV [employer]OFILE ([id number]) Comp Metabolic Profon 2018 BUN/CRE Ratio NOT REPORTED Normal 9-20 [facility] Comment on above: Performed By: #### C DP, CP, LIPR, TSHX #### [facility] [address] [place], [place] [phone] Grocery Bagger: Bebo Sarmiento MD Staging: NOT REPORTED Normal [facility] Comment on above: Performed By: #### C DP, CP, LIPR, TSHX #### [facility] [address] [place], [place] [phone] Grocery Bagger: Bebo Sarmiento MD Hematologyon 08-14-2018 Basophils/100 WBC (Bld) 1 % (0-2) [facility] Work Phone: Comment on above: Note: Responsible Ob ware server: XNV AUTOFILE (3018) Eosinophils (Bld) [#/Vol] 0.08 10*3/uL (0.00-0.44) [facility] Work Phone: Comment on above: Note: Responsible Ob ware server: [employer]NV [employer] (3018) Eosinophils/100 WBC (Bld) 1 % (1-4) [facility] Work Phone: Comment on above: Note: Responsible Ob ware server: [employer]NV [employer] (3018) Hematocrit (Bld) [Volume fraction] 43.2 % (36.3-47.1) [facility] Work Phone: Comment on above: Note: Responsible Ob ware server: [employer] (3018) Hemoglobin (Bld) [Mass/Vol] Negative (NEG) [facility] Work Phone: Comment on above: Note: Responsible Ob ware server: TIANNA COSTELLO (909) Hemoglobin (Bld) [Mass/Vol] 14.0 g/dL (11.9-15.1) [facility] Work Phone: Comment on above: Note: Responsible Ob ware server: [employer]NV [employer] (3018) Lymphocytes (Bld) [#/Vol] 1.96 10*3/uL (1.10-3.70) [facility] Work Phone: Comment on above: Note: Responsible Ob ware server: XNV [employer] (3018) Lymphocytes/100 WBC (Bld) 21 % Low (24-43) [facility] Work Phone: Comment on above: Note: Responsible Ob ware server: XNV [employer]FILE (3018) MCH (RBC) [Entitic mass] 31.3 pg (25.2-33.5) [facility] Work Phone: Comment on above: Note: Responsible Ob ware server: XNV AUTOFILE (8) MCV (RBC) [Entitic vol] 96.4 fL (82.6-102.9) [facility] Work Phone: Comment on above: Note: Responsible Ob ware server: XNV AUTOFILE (3018) Monocytes (Bld) [#/Vol] 0.81 10*3/uL (0.10-1.20) [facility] Work Phone: Comment on above: Note: Responsible Ob ware server: XNV AUTOFILE (8) Monocytes/100 WBC (Bld) 9 % (3-12) [facility] Work Phone: Comment on above: Note: Responsible Ob ware server: XNV AUTOFILE (8) Platelets (Bld) [#/Vol] NOT REPORTED [facility] Work Phone: Platelets (Bld) [#/Vol] 236 10*3/uL (138-453) [facility] Work Phone: Comment on above: Note: Responsible Ob ware server: XNV AUTOFILE (8) RBC (Bld) [#/Vol] 4.48 10*6/uL (3.95-5.11) [facility] Work Phone: Comment on above: Note: Responsible Ob ware server: XNV AUTOFILE (3018) RBC morphology finding Nom (Bld) NOT REPORTED [facility] Work Phone: WBC (Bld) [#/Vol] 0.0 per_100_WBC (0.0) [facility] Work Phone: Comment on above: Note: Responsible Ob ware server: XNV AUTOFILE (3018) WBC (Bld) [#/Vol] 9.3 10*3/uL (3.5-11.3) [facility] Work Phone: Comment on above: Note: Responsible Ob ware server: [employer]NV [employer] (3018) Lipid Profileon 08-14-2018 Cholesterol in VLDL [Mass/Vol] NOT REPORTED Normal 04-30 [facility] Comment on above: Performed By: #### C DP, CP, LIPR, TSHX #### [facility] [employer] [address] [place], [place] [id number] Grocery Bagger: Bebo Sarmiento MD Metabolic Panelon 08-14-2018 Albumin [Mass/Vol] 4.4 g/dL (3.5-5.2) [facility] Work Phone: Comment on above: Note: Responsible Ob ware server: CEEV AUTOFILE (3003) ALT [Catalytic activity/Vol] 17 U/L (5-33) [facility] Work Phone: Comment on above: Note: Responsible Ob ware server: CEEV AUTOFILE (3003) Anion gap [Moles/Vol] 14 mmol/L (9-17) [facility] Work Phone: Comment on above: Note: Responsible Ob ware server: CEEV AUTOFILE (3003) AST [Catalytic activity/Vol] 11 U/L (<32) [facility] Work Phone: Comment on above: Note: Responsible Ob ware server: CEEV AUTOFILE (3003) Bilirubin [Mass/Vol] 0.21 mg/dL Low (0.3-1.2) [facility] Work Phone: Comment on above: Note: Responsible Ob ware server: CEEV AUTOFILE (3003) Bilirubin.direct [Mass/Vol] Negative (NEG) [facility] Work Phone: Comment on above: Note: Responsible Ob ware server: TIANNA COSTELLO (909) Calcium [Mass/Vol] 9.5 mg/dL (8.6-10.4) [facility] Work Phone: Comment on above: Note: Responsible Ob ware server: CEEV AUTOFILE (3003) Chloride [Moles/Vol] 101 mmol/L (98-107) [facility] Work Phone: Comment on above: Note: Responsible Ob ware server: CEEV AUTOFILE (3003) CO2 [Moles/Vol] 24 mmol/L (20-31) [facility] Work Phone: Comment on above: Note: Responsible Ob ware server: CEEV AUTOFILE (3003) Creatinine [Mass/Vol] 0.53 mg/dL (0.50-0.90) [facility] Work Phone: Comment on above: Note: Responsible Ob ware server: CEEV AUTOFILE (3003) Glucose [Mass/Vol] Negative (NEG) [facility] Work Phone: Comment on above: Note: Responsible Ob ware server: TIANNA COSTELLO (705) Glucose [Mass/Vol] 91 mg/dL (70-99) [facility] Work Phone: Comment on above: Note: Responsible Ob ware server: CEEV AUTOFILE (3003) Potassium [Moles/Vol] 4.8 mmol/L (3.7-5.3) [facility] Work Phone: Comment on above: Note: Responsible Ob ware server: CEEV AUTOFILE (3003) Protein [Mass/Vol] 6.7 g/dL (6.4-8.3) [facility] Work Phone: Comment on above: Note: Responsible Ob ware server: CEEV AUTOFILE (3003) Protein [Mass/Vol] Negative (NEG) [facility] Work Phone: Comment on above: Note: Responsible Ob ware server: TIANNA COSTELLO (939) Sodium [Moles/Vol] 139 mmol/L (135-144) [facility] Work Phone: Comment on above: Note: Responsible Ob ware server: CEEV AUTOFILE (3003) Urea nitrogen [Mass/Vol] 13 mg/dL (6-20) [facility] Work Phone: Comment on above: Note: Responsible Ob ware server: CHLOE AUTOFILE (8334) Otheron 08-14-2018 Cult,Urine,CC See Note [facility] Work Phone: Comment on above: Note: Specimen Descr iption .CLEAN CATCH URINESpecial Requests NOT REPORTEDCulture NO SIGNIFICANT GROWTHReport Status FINAL 08/16/2018Responsible Observer: TIANNA COSTELLO ([id number]) Reported Physicians See Note [facility] Work Phone: Comment on above: Note: Reported Physi cians:Ordering: Dennise Gil JAttending: DENNISE GILReferring: DENNISE GIL (cont.) See Note [facility] Work Phone: Comment on above: Note: Average GFR fo r 30-39 years old: 107 mL/min/1.73sq mChronic Kidney Disease: <60 mL/min/1.73sq mKidney failure: <15 mL/min/1.73sq m eGFR calculated using average adult body mass. Additional eGFR calculator available at: http://www.[employer]/multiple_crcl_2011.htm Responsible Observer: CHLOE DE LEÓNE ([id number]) ----- See Note [facility] Work Phone: Comment on above: Note: Responsible Ob ware server: TIANNA COSTELLO (198) Abs. Basophil 0.05 k/uL (0.00-0.20) [facility] Work Phone: Comment on above: Note: Responsible Ob ware server: XNV AUTOFILE (3018) Abs.Imm.Granulocyte 0.03 k/uL (0.00-0.30) [facility] Work Phone: Comment on above: Note: Responsible Ob ware server: XNV AUTOFILE (3018) Abs.Neutrophil (Seg) 6.32 k/uL (1.50-8.10) [facility] Work Phone: Comment on above: Note: Responsible Ob ware server: XNV AUTOFILE (3018) Acetoacetic Acid,Ur Negative (NEG) [facility] Work Phone: Comment on above: Note: Responsible Ob ware server: TIANNA COSTELOL (909) Albumin/Glob Ratio 1.9 (1.0-2.5) [facility] Work Phone: Comment on above: Note: Responsible Ob ware server: CEEV AUTOFILE (3003) Alkaline Phos 80 U/L (35-104) [facility] Work Phone: Comment on above: Note: Responsible Ob ware server: CEEV AUTOFILE (3003) Auto Diff Performed NOT REPORTED [facility]: BUN/CRE Ratio NOT REPORTED (9-20) [facility] Work Phone: Cholesterol,HDL 31 mg/dL Low (>40) [facility] Work Phone: Comment on above: Note: HDL Guidelines : <40 Undesirable 40-59 Borderline >59 Desirable Responsible Observer: CEEV AUTOFILE (3003) Cholesterol,LDL 182 mg/dL High (0-130) [facility] Work Phone: Comment on above: Note: LDL Guidelines : <100 Desirable 100-129 Near to/above Desirable 130-159 Borderline >159 Undesirable Direct (measured) LDL and calculated LDL are not interchangeable tests.Responsible Observer: CEEV AUTOFILE (3003) Cholesterol,VLDL NOT REPORTED mg/dL (1-30) [facility] Work Phone: Cholesterol.total/Cho lesterol in HDL [Mass ratio] 8.5 {ratio} High (<5) [facility] Work Phone: Comment on above: Note: Responsible Ob ware server: CEEV AUTOFILE (3003) Comment NOT REPORTED [facility] Work Phone: Epithelial, Renal NOT REPORTED /HPF (0) [facility] Work Phone: Erythrocyte distribution width (RBC) [Ratio] 13.0 % (11.8-14.4) [facility] Work Phone: Comment on above: Note: Responsible Ob ware server: XNV AUTOFILE (3018) GFR, Amer >60 mL/min (>60) [facility] Work Phone: Comment on above: Note: Responsible Ob ware server: CEEV AUTOFILE (3003) GFR,non Amer >60 mL/min (>60) [facility] Work Phone: Comment on above: Note: Responsible Ob ware server: CEEV AUTOFILE (3003) Immature granulocytes (Bld) [#/Vol] 0 % (0) [facility] Work Phone: Comment on above: Note: Responsible Ob ware server: XNV AUTOFILE (3018) Leuckocyte Esterase MODERATE Abnormal (NEG) [facility] Work Phone: Comment on above: Note: Responsible Ob ware server: TIANNA COSTELLO ([id number]) MCHC (RBC) [Mass/Vol] 32.4 g/dL (28.4-34.8) [facility] Work Phone: Comment on above: Note: Responsible Ob ware server: XNV AUTOFILE ([id number]) Mucus Strands NOT REPORTED (NONE) [facility] Work Phone: Nitrite,Ur Negative (NEG) [facility] Work Phone: Comment on above: Note: Responsible Ob ware server: TIANNA COSTELLO ([id number]) Other Observations NOT REPORTED (NREQ) [facility] Work Phone: Performing Lab: see note [facility] Work Phone: Comment on above: Note: BRET Jruado [address] [facility] [address] PH,Ur 6.0 (5.0-8.0) [facility] Work Phone: Comment on above: Note: Responsible Ob ware server: TIANNA COSTELLO ([id number]) Platelet mean volume (Bld) [Entitic vol] 12.1 fL (8.1-13.5) [facility] Work Phone: Comment on above: Note: Responsible Ob ware server: XNV AUTOFILE ([id number]) RBC (U) [#/Vol] 2 TO 5 /HPF (0-4) [facility] Work Phone: Comment on above: Note: Reference rang e defined for non-centrifuged specimen.Responsible Observer: TIANNA COSTELLO ([id number]) Reported Physicians See Note [facility] Work Phone: Comment on above: Note: Reported Physi cians:Ordering: Dennise Gilending: DENNISE GILReferring: DENNISE GIL Segmented neutrophils/100 WBC (Bld) 68 % High (36-65) [facility] Work Phone: Comment on above: Note: Responsible Ob ware server: XNV AUTOFILE ([id number]) Spec. [place],Ur 1.025 (1.005-1.030) [facility] Work Phone: Comment on above: Note: Responsible Ob ware server: TIANNA COSTELLO ([id number]) Staging: NOT REPORTED [facility] Work Phone: Thyroid Stim. Horm. 2.50 mIU/L (0.30-5.00) [facility] Work Phone: Comment on above: Note: Responsible Ob ware server: CEEV AUTOFILE ([id number]) Trichomonas NOT REPORTED (NONE) [facility] Work Phone: Turbidity CLOUDY Abnormal (CLEAR) [facility] Work Phone: Comment on above: Note: Responsible Ob ware server: TIANNA COSTELLO (691) Urobilinogen,Ur Normal (NORM) [facility] Work Phone: Comment on above: Note: Responsible Ob ware server: TIANNA COSTELLO (090) WBC Morphology NOT REPORTED [facility] Work Phone: UA w/Reflex Cultureon 2018 Acetoacetic Acid,Ur Negative Normal NEG [facility] Comment on above: Performed By: #### U MICAO, UAX #### [address] [address] Grocery Bagger: Bebo Sarmiento MD Bilirubin, SemiQt,Ur Negative Normal NEG [facility] Comment on above: Performed By: #### U MICAO, UAX #### [address] [address] Grocery Bagger: Bebo Sarmiento MD Color (U) YELLOW Normal YEL [facility] Comment on above: Performed By: #### U MICAO, UAX #### [address] [address] [employer]cery Bagger: Bebo Sarmiento MD Glucose Ql (U) Negative Normal NEG [facility] Comment on above: Performed By: #### U MICAO, UAX #### [address] [address] [employer]cery Bagger: Bebo Sarmiento MD Hemoglobin, Ur Negative Normal NEG [facility] Comment on above: Performed By: #### U MICAO, UAX #### [address] [address] Grocery Bagger: Bebo Sarmiento MD Leukocyte esterase Test strip Ql (U) MODERATE Abnormal NEG [facility] Comment on above: Performed By: #### U MICAO, UAX #### [address] [address] Grocery Bagger: Bebo Sarmiento MD Nitrite,Ur Negative Normal NEG [facility] Comment on above: Performed By: #### U MICAO, UAX #### [address] [address] [employer]cery Bagger: Bebo Sarmiento MD pH (U) 6.0 [pH] Normal 5.0-8.0 [facility] Comment on above: Performed By: #### U MICAO, UAX #### [address] [address] Grocery Bagger: Bebo Sarmiento MD Protein Ql (U) Negative Normal NEG [facility] Comment on above: Performed By: #### U MICAO, UAX #### [address] [address] Grocery Bagger: Bebo Sarmiento MD Specific gravity (U) [Rel density] 1.025 Normal 1.005-1.030 [facility] Comment on above: Performed By: #### U MICAO, UAX #### [facility] [employer] [address] [place] [address] Grocery Bagger: Bebo Sarmiento MD Turbidity CLOUDY Abnormal CLEAR [facility] Comment on above: Performed By: #### U MICAO, UAX #### [facility] [employer] [address] [place] [address] Grocery Bagger: Bebo Sarmiento MD Urobilinogen,Ur Normal Normal NORM [facility] Comment on above: Performed By: #### U MICAO, UAX #### [facility] [employer] [address] [place] [address] Grocery Bagger: Bebo Sarmiento MD Comment NOT REPORTED Normal [facility] Comment on above: Performed By: #### U MICAO, UAX #### [address] [address] [employer]cery Bagger: Bebo Sarmiento MD Urinalysison 08-14-2018 Amorphous sediment LM Ql (Urine sed) NOT REPORTED (NONE) [facility] Work Phone: Bacteria LM.HPF (Urine sed) [#/Area] MANY Abnormal (NONE) [facility] Work Phone: Comment on above: Note: Responsible Ob ware server: TIANNA COSTELLO (909) Casts LM.LPF (Urine sed) [#/Area] 5 TO 10 HYALINE /LPF (0-8) [facility] Work Phone: Comment on above: Note: Reference rang e defined for non-centrifuged specimen.Responsible Observer: TIANNA COSTELLO ([id number]) Color (U) YELLOW (YEL) [facility] Work Phone: Comment on above: Note: Responsible Ob ware server: TIANNA COSTELLO (909) Crystals LM Nom (Urine sed) NOT REPORTED /HPF (NONE) [facility] Work Phone: Epithelial cells LM.HPF (Urine sed) [#/Area] 10 TO 20 /HPF (0-5) [facility] Work Phone: Comment on above: Note: Responsible Ob ware server: TIANNA SETHBRIDGETTE (019) WBC (U) [#/Vol] 20 TO 50 /HPF (0-5) [facility] Work Phone: Comment on above: Note: Responsible Ob ware server: TIANNA COSTELLO ([id number]) Yeast LM Ql (Urine sed) NOT REPORTED (NONE) [facility] Work Phone: Urinalysis,Microon 9 Amorphous sediment LM Ql (Urine sed) NOT REPORTED Normal NONE [facility] Comment on above: Performed By: #### U MICAO, UAX #### [employer] [address] [place] [address] Grocery Bagger: Bebo Sarmiento MD Crystals LM Nom (Urine sed) NOT REPORTED Normal NONE [facility] Comment on above: Performed By: #### U MICAO, UAX #### [employer] [address] [place] [address] Grocery Bagger: Bebo Sarmiento MD Epithelial, Renal NOT REPORTED Normal 0 [facility] Comment on above: Performed By: #### U MICAO, UAX #### [employer] [address] [place] [address] Grocery Bagger: Bebo Sarmiento MD Mucus Strands NOT REPORTED Normal NONE [facility] Comment on above: Performed By: #### U MICAO, UAX #### [facility] [address] [place] [address] Grocery Bagger: Bebo Sarmiento MD Other Observations NOT REPORTED Normal NREQ [facility] Comment on above: Performed By: #### U MICAO, UAX #### [facility] [address] [place] [address] [employer]cery [employer]agger: Bebo Sarmiento MD Trichomonas NOT REPORTED Normal NONE [facility] Comment on above: Performed By: #### U MICAO, UAX #### [facility] [address] [place] [address] [employer]cery [employer]agger: Bebo Sarmiento MD Yeast LM Ql (Urine sed) NOT REPORTED Normal NONE [facility] Comment on above: Performed By: #### U MICAO, UAX #### [facility] [address] [place] [address] [employer]cery [employer]: Bebo Sarmiento MD Metabolic Panelon 11-26-2017 Hemoglobin A1c/Hemoglobin.total mass fraction (Bld) 5.90 % Invalid Interpretation Code < 7 [employer] [facility] Otheron 11-26-2017 3=Uncontrolled Invalid Interpretation Code [facility]= N/A Invalid Interpretation Code [facility] 0-N/A Invalid Interpretation Code [facility] 0=No Invalid Interpretation Code [facility] 7 Invalid Interpretation Code [facility] 3=Yes Invalid Interpretation Code [facility] 1=Yes Invalid Interpretation Code [facility] 0 Invalid Interpretation [facility] Risk Level 3=7-9 Invalid Interpretation Code [facility] 5 Invalid Interpretation Code [facility] Vital Signs Date Time Vital Sign Value Performing Clinician Eric thompson 03-11-2023 14:31-0500 Diastolic blood pressure 90 mm[Hg] DEVELOPER SUPPORT ENGINEER Mari Danbury-Lara Work Phone: [facility] 03-11-2023 14:31-0500 Systolic blood pressure 128 mm[Hg] DEVELOPER SUPPORT ENGINEER Mari Danbury-Lara Work Phone: [facility] 03-11-2023 14:22-0500 Body height 154.94 cm DEVELOPER SUPPORT ENGINEER Mari Danbury-Lara Work Phone: [facility] 03-11-2023 14:22-0500 Body mass index (BMI) [Ratio] 33.1 kg/m2 DEVELOPER SUPPORT ENGINEER Mari Leonid-Lara Work Phone: [facility] 03-11-2023 14:22-0500 Body temperature 98.1 [degF] DEVELOPER SUPPORT ENGINEER Mari Leonid-Lara Work Phone: [facility] 03-11-2023 14:22-0500 Body weight 79.6 kg DEVELOPER SUPPORT ENGINEER Mari Leonid-Lara Work Phone: [facility] 03-11-2023 14:22-0500 Heart rate 87 /min DEVELOPER SUPPORT ENGINEER Mari Leonid-Lara Work Phone: [facility] 03-11-2023 14:22-0500 Respiratory rate 18 /min DEVELOPER SUPPORT ENGINEER Mari Danbury-Lara Work Phone: [facility] 03-11-2023 14:22-0500 SaO2% (BldA) [Mass fraction] 96 % DEVELOPER SUPPORT ENGINEER Mari Danbury-Lara Work Phone: [facility] 10-17-2022 15:16-0400 Diastolic blood pressure 74 mm[Hg] DEVELOPER SUPPORT ENGINEER Mari Danbury-Lara Work Phone: [facility] 10-17-2022 15:16-0400 Systolic blood pressure 110 mm[Hg] DEVELOPER SUPPORT ENGINEER Mari Danbury-Lara Work Phone: [facility] 10-17-2022 15:12-0400 Body height 154.94 cm DEVELOPER SUPPORT ENGINEER Mari Danbury-Lara Work Phone: [facility] 10-17-2022 15:12-0400 Body mass index (BMI) [Ratio] 36.1 kg/m2 DEVELOPER SUPPORT ENGINEER Mari Danbury-Lara Work Phone: [facility] 10-17-2022 15:12-0400 Body temperature 97.7 [degF] DEVELOPER SUPPORT ENGINEER Mari Danbury-Lara Work Phone: [facility] 10-17-2022 15:12-0400 Body weight 86.63 kg DEVELOPER SUPPORT ENGINEER Mari Danbury-Lara Work Phone: [facility] 10-17-2022 15:12-0400 Heart rate 111 /min DEVELOPER SUPPORT ENGINEER Mari Danbury-Lara Work Phone: [facility] 10-17-2022 15:12-0400 Respiratory rate 16 /min DEVELOPER SUPPORT ENGINEER Mari Leonid-Lara Work Phone: [facility] 10-17-2022 15:12-0400 SaO2% (BldA) [Mass fraction] 98 % DEVELOPER SUPPORT ENGINEER Mari Leonid-Lara Work Phone: [facility] 02-27-2022 14:25-0500 Body height 154.94 cm MD Lory Trevino Work Phone: [facility] 02-27-2022 14:25-0500 Body mass index (BMI) [Ratio] 36.6 kg/m2 MD Lory Trevino Work Phone: [facility] 02-27-2022 14:25-0500 Body weight 87.99 kg MD Lory Trevino Work Phone: [facility] 02-27-2022 14:25-0500 Diastolic blood pressure 86 mm[Hg] MD Lory Trevino Work Phone: [facility] 02-27-2022 14:25-0500 Heart rate 85 /min MD Lory Trevino Work Phone: [facility] 02-27-2022 14:25-0500 Respiratory rate 18 /min MD Lory Trevino Work Phone: [facility] 02-27-2022 14:25-0500 SaO2% (BldA) [Mass fraction] 93 % MD Lory Trevino Work Phone: [facility] 02-27-2022 14:25-0500 Systolic blood pressure 120 mm[Hg] MD Lory Trevino Work Phone: [facility] 09-29-2019 08:27-0400 BMI (Body Mass Index) 34 kg/m2 [facility] Work Phone: 09-29-2019 08:27-0400 Body weight 81.65 kg [facility] Work Phone: 09-29-2019 08:27-0400 BSA (Body Surface Area) 1.81 m2 [facility] Work Phone: 09-29-2019 08:27-0400 Height 154.94 cm [facility] Work Phone: 10-13-2018 14:23-0400 BMI (Body Mass Index) 38.3 kg/m2 [facility] Work Phone: 10-13-2018 14:23-0400 Body Temperature 98.4 [degF] [facility] Work Phone: 10-13-2018 14:23-0400 Body weight 94.89 kg [facility] Work Phone: 10-13-2018 14:23-0400 BP Diastolic 70 mm[Hg] [facility] Work Phone: 10-13-2018 14:23-0400 BP Systolic 120 mm[Hg] [facility] Work Phone: 10-13-2018 14:23-0400 BSA (Body Surface Area) 1.95 m2 [facility] Work Phone: 10-13-2018 14:23-0400 Height 157.48 cm [facility] Work Phone: 10-13-2018 14:23-0400 Pulse (Heart Rate) 63 /min [facility] Work Phone: 10-13-2018 14:23-0400 Pulse Oximetry 99 % [facility] Work Phone: 10-13-2018 14:23-0400 Respiratory Rate 20 /min [facility] Work Phone: 09-29-2018 11:31-0400 BMI (Body Mass Index) 38.6 kg/m2 [facility] Work Phone: 09-29-2018 11:31-0400 Body Temperature 98.7 [degF] [facility] Work Phone: 09-29-2018 11:31-0400 Body weight 95.71 kg [facility] Work Phone: 09-29-2018 11:31-0400 BP Diastolic 86 mm[Hg] [facility] Work Phone: 09-29-2018 11:31-0400 BP Systolic 124 mm[Hg] [facility] Work Phone: 09-29-2018 11:31-0400 BSA (Body Surface Area) 1.96 m2 [facility] Work Phone: 09-29-2018 11:31-0400 Height 157.48 cm [facility] Work Phone: 09-29-2018 11:31-0400 Pulse (Heart Rate) 87 /min [facility] Work Phone: 09-29-2018 11:31-0400 Pulse Oximetry 98 % [facility] Work Phone: 09-29-2018 11:31-0400 Respiratory Rate 16 /min [facility] Work Phone: 09-02-2018 09:38-0400 BMI (Body Mass Index) 37.9 kg/m2 [facility] Work Phone: 09-02-2018 09:38-0400 Body Temperature 98.9 [degF] [facility] Work Phone: 09-02-2018 09:38-0400 Body weight 94.08 kg [facility] Work Phone: 09-02-2018 09:38-0400 BP Diastolic 78 mm[Hg] [facility] Work Phone: 09-02-2018 09:38-0400 BP Systolic 122 mm[Hg] [facility] Work Phone: 09-02-2018 09:38-0400 BSA (Body Surface Area) 1.94 m2 [facility] Work Phone: 09-02-2018 09:38-0400 Height 157.48 cm [facility] Work Phone: 09-02-2018 09:38-0400 Pulse (Heart Rate) 90 /min [facility] Work Phone: 09-02-2018 09:38-0400 Pulse Oximetry 97 % [facility] Work Phone: 09-02-2018 09:38-0400 Respiratory Rate 16 /min [facility] Work Phone: 08-14-2018 09:48-0400 BMI (Body Mass Index) 37.1 kg/m2 [facility] Work Phone: 08-14-2018 09:48-0400 Body Temperature 99.2 [degF] [facility] Work Phone: 08-14-2018 09:48-0400 Body weight 92.08 kg [facility] Work Phone: 08-14-2018 09:48-0400 BP Diastolic 84 mm[Hg] [facility] Work Phone: 08-14-2018 09:48-0400 BP Systolic 126 mm[Hg] [facility] Work Phone: 08-14-2018 09:48-0400 BSA (Body Surface Area) 1.92 m2 [facility] Work Phone: 08-14-2018 09:48-0400 Height 157.48 cm [facility] Work Phone: 08-14-2018 09:48-0400 Pulse (Heart Rate) 83 /min [facility] Work Phone: 08-14-2018 09:48-0400 Pulse Oximetry 99 % [facility] Work Phone: 11-26-2017 16:58-0400 BMI (Body Mass Index) 32.58 kg/m2 [facility] 11-26-2017 16:58-0400 Body Temperature 97.2 [degF] [facility] 11-26-2017 16:58-0400 BP Diastolic 84 mm[Hg] [facility] 11-26-2017 16:58-0400 BP Systolic 127 mm[Hg] [facility] 11-26-2017 16:58-0400 BSA (Body Surface Area) 1.88 m2 [facility] 11-26-2017 16:58-0400 Height 157.48 cm [facility] 11-26-2017 16:58-0400 Pulse (Heart Rate) 85 /min [facility] 11-26-2017 16:58-0400 Pulse Oximetry 98 % [facility] 11-26-2017 16:58-0400 Respiratory Rate 20 /min [facility] 11-26-2017 16:58-0400 Weight 80.8 kg [facility] 11-26-2017 14:58-0400 BMI (Body Mass Index) 32.6 kg/m2 [facility] Work Phone: 11-26-2017 14:58-0400 Body Temperature 97.2 [degF] [facility] Work Phone: 11-26-2017 14:58-0400 Body weight 80.74 kg [facility] Work Phone: 11-26-2017 14:58-0400 BP Diastolic 84 mm[Hg] [facility] Work Phone: 11-26-2017 14:58-0400 BP Systolic 127 mm[Hg] [facility] Work Phone: 11-26-2017 14:58-0400 BSA (Body Surface Area) 1.82 m2 [facility] Work Phone: 11-26-2017 14:58-0400 Height 157.48 cm [facility] Work Phone: 11-26-2017 14:58-0400 Pulse (Heart Rate) 85 /min [facility] Work Phone: 11-26-2017 14:58-0400 Respiratory Rate 20 /min [facility] Work Phone: 12-15-2015 13:48-0400 BP Diastolic 89 mm[Hg] [facility] 12-15-2015 13:48-0400 BP Systolic 153 mm[Hg] [facility] 12-15-2015 13:48-0400 Pulse (Heart Rate) 82 /min [facility] [employer] [facility] Encounters Encounter Date Encounter Type Care Provider Facility Start: 12-17-2023 End: 12-18-2023 Emergency department patient visit [facility] Start: 11-12-2023 End: 11-12-2023 Emergency department patient visit [facility] Start: 04-03-2023 End: 04-03-2023 ambulatory Mari Blair Facility:[facility] Start: 04-03-2023 Encounter for genera l adult medical examination without abnormal findings Mari Blair [facility] Start: 03-11-2023 End: 03-11-2023 ambulatory DEVELOPER SUPPORT ENGINEER Mari Blair Work Phone: [facility] [employer] Work Phone: Start: 03-11-2023 End: 03-11-2023 Patient encounter procedure DEVELOPER SUPPORT ENGINEER Mari Blair Work Phone: [facility] [employer] Work Phone: Start: 03-04-2023 ambulatory HOLLIS GALLEGOS [facility] Start: 11-16-2022 End: 11-16-2022 Emergency department patient visit BETZY MACHUCA [facility] Start: 10-18-2022 End: 10-18-2022 ambulatory Mari Blair Facility:[facility] Start: 10-18-2022 End: 10-18-2022 ambulatory DEVELOPER SUPPORT ENGINEER Mari Blair Work Phone: [facility] Work Phone: Start: 10-18-2022 End: 10-18-2022 Patient encounter procedure DEVELOPER SUPPORT ENGINEER Mari Blair Work Phone: [facility]-Non-Pt/Dr Office Specimen Start: 10-17-2022 End: 10-17-2022 ambulatory DEVELOPER SUPPORT ENGINEER Mari Blair Work Phone: [facility] Work Phone: Start: 10-17-2022 End: 10-17-2022 Patient encounter procedure DEVELOPER SUPPORT ENGINEER Mari Blair Work Phone: [facility] [facility] [place] Work Phone: Start: 04-30-2022 Patient encounter status DEVELOPER SUPPORT ENGINEER Bi juan luis Blair Work Phone: [facility] Start: 02-27-2022 End: 02-27-2022 ambulatory MD Lory Trevino Work Phone: [facility] Work Phone: Start: 02-27-2022 End: 02-27-2022 Patient encounter procedure MD Lory Trevino Work Phone: [facility] [place] Start: 09-29-2019 End: 09-29-2019 Telemedicine consultation with patient Brendon Newman Work Phone: [facility] Work Phone: Start: 02-17-2019 End: 02-17-2019 Patient encounter procedure Dennise Gil Work Phone: [facility] Work Phone: Start: 10-13-2018 End: 10-13-2018 Established patient Dennise Gil Work Phone: [facility] Work Phone: Start: 09-29-2018 End: 09-29-2018 ambulatory Cindy Forde Work Phone: [facility] Work Phone: Start: 09-29-2018 End: 09-29-2018 ambulatory Cindy Forde Work Phone: [facility] Work Phone: Start: 09-02-2018 End: 09-02-2018 Patient encounter procedure Mell Mercado Work Phone: [facility] Work Phone: Start: 09-02-2018 End: 09-02-2018 ambulatory Carlie Stringer Work Phone: [facility] Work Phone: Start: 08-28-2018 End: 08-28-2018 Patient encounter procedure Dennise Gil Work Phone: [facility] Work Phone: Start: 08-14-2018 End: 08-15-2018 Patient encounter procedure DENNISE GIL [facility] Start: 08-14-2018 End: 08-14-2018 Established patient Cindy Forde Work Phone: [facility] Work Phone: Start: 08-14-2018 End: 08-14-2018 New patient Dennise Gil Work Phone: [facility] Work Phone: Start: 11-26-2017 Substance Abuse Tee Yina Other [facility] Start: 11-26-2017 Office outpatient vi sit 15 minutes Lida Malone Other [facility] Start: 11-26-2017 End: 11-26-2017 Patient encounter procedure Dennise Gil [facility] Work Phone: Start: 11-26-2017 Tobacco use cessatio n intermediate 3-10 minutes [facility] Start: 12-15-2015 Dental Charmaine hudson Other [facility] Procedures Date Procedure Procedure Detail Performing Clinician Start: 03-11-2023 Flu A DEVELOPER SUPPORT ENGINEER Mari Blair Work Phone: Start: 09-29-2018 Diast bp 80-[address] hue Malone Work Phone: Start: 09-29-2018 Psychotherapy w/adrian ent 30 minutes Cindy Maurisio Work Phone: Start: 09-29-2018 Syst bp lt [address] hue Malone Work Phone: Start: 09-02-2018 Caries risk assess h igh risk Mell Mercado Work Phone: Start: 09-02-2018 Diast bp <80 mm hg Ashl uday Siomara Work Phone: Start: 09-02-2018 General Periodic/Com p Exam*HPWO* Mell Mercado Work Phone: Start: 09-02-2018 Gluc bld gluc mntr d ev cleared fda spec home use Carlie Stringer Work Phone: Start: 09-02-2018 Oral Health Integration Mell Mercado Work Phone: Start: 09-02-2018 Syst bp lt 130 mm hg As hley Siomara Work Phone: Start: 08-14-2018 Culture bacterial quanttative colony count urine DENNISE GIL Start: 08-14-2018 ANXIETY DISORDER NOS Ba rbara [place] Start: 08-14-2018 DEPRESSION Dennise Pu rvis Start: 08-14-2018 Diast bp 80-89 mm hg Ba rbara Sha Work Phone: Start: 08-14-2018 Hemoglobin glycosylated a1c Dennise [place] Work Phone: Start: 08-14-2018 Hepatitis c antibody Ba rbara Sha Work Phone: Start: 08-14-2018 HYPERTENSION (SYSTEMIC) Dennise Gil Start: 08-14-2018 Ligation of fallopian tube Dennise Gil Start: 08-14-2018 past medical/surgica l history [use for free text] Dennise Gil Start: 08-14-2018 Psychotherapy w/adrian ent 30 minutes Cindy Ramirezhl Work Phone: Start: 08-14-2018 Syst bp lt [...] End: 11-26-2017 Psychotherapy w/patient 30 minutes Tee Castroannabella Start: 11-26-2017 Hemoglobin glycosylated a1c Tee Castroannabella Start: 11-26-2017 HG A1C LEVEL LT 7.0% Ma ttmaldonado Bran Start: 11-26-2017 PHQ9 Administered Mushtaq Bran Start: 11-26-2017 Pt-focused hlth risk assmt score doc stnd instrm Tee Yina Start: 11-26-2017 Referral Treatment Ignacio maldonado Bran Start: 11-26-2017 SBIRT- Full Screen *POSITIVE* Referred to Provider Tee Bran Start: 11-26-2017 Screening, Brief Intervention, Referral and Treatment Tee Bran Plan of Treatment Date Care Activity Detail Author Start: 10-18-2022 Bacteria identified in Urine by Culture [facility] Start: 10-29-2019 _SARS-CoV-2 CO VID19 test [facility] Work Phone: Start: 09-29-2019 COVID Drive up Testing [facility] Work Phone: Start: 01-20-2019 Dental Comp Exam [facility] Work Phone: Start: 10-13-2018 End: 09-13-2018 Comprehensive metabolic 2000 panel [facility] Work Phone: Start: 10-13-2018 End: 09-13-2018 Lipid panel Lipid Panel (LIPR) [facility] Work Phone: Start: 09-29-2018 End: 10-29-2018 Comprehensive metabolic 2000 panel [facility] Work Phone: Comment on above: Note: Please make a referral to:pt needs to re establish with rheumatology that is different that old one Start: 09-29-2018 End: 10-29-2018 CRP [Mass/Vol] CRP (C-Reactive Proteine) [facility] Work Phone: Start: 09-29-2018 End: 09-13-2018 Lipid panel Lipid Panel (LIPR) [facility] Work Phone: Start: 09-13-2018 Comprehensive metabo lic 2000 panel [facility] Work Phone: Start: 09-13-2018 Lipid panel Lipid Panel (LIPR) [facility] Work Phone: Urinalysis macro (dipstick) panel - Urine [facility] Immunizations Immunization Date Immunization Notes Care Provider Marni gale 08-08-2020 COVID-19 PFIZER DEVELOPER SUPPORT ENGINEER Mari Blair Work Phone: [facility] 01-24-1989 diphtheria, tetanus toxoids and pertussis vaccine DEVELOPER SUPPORT ENGINEER Mari Blair Work Phone: [facility] 01-24-1989 measles, mumps and rubella virus vaccine DEVELOPER SUPPORT ENGINEER Mari Blair Work Phone: [facility] 01-24-1989 trivalent poliovirus vaccine, live, oral DEVELOPER SUPPORT ENGINEER Mari Blair Work Phone: [facility] 02-02-1988 diphtheria, tetanus toxoids and pertussis vaccine DEVELOPER SUPPORT ENGINEER Mari Blair Work Phone: [facility] 1985 diphtheria, tetanus toxoids and pertussis vaccine DEVELOPER SUPPORT ENGINEER Mari Blair Work Phone: [facility] 1985 trivalent poliovirus vaccine, live, oral DEVELOPER SUPPORT ENGINEER Mari Blair Work Phone: [facility] 1985 diphtheria, tetanus toxoids and pertussis vaccine DEVELOPER SUPPORT ENGINEER Mari Blair Work Phone: [facility] 1985 trivalent poliovirus vaccine, live, oral DEVELOPER SUPPORT ENGINEER Mari Blair Work Phone: [facility] Payers Date Payer Category Payer Self-pay [id number] 2002 Unknown [id number] 1986 Unknown [id number] [id number] 1986 Unknown [id number] 1986 Unknown [id number] [id number] 1986 Unknown [id number] 1986 Unknown [id number] [id number] 1986 Unknown [id number] [id number] [id number] 1986 Unknown [id number] [id number] Social History Date Type Detail Facility Start: [facility] Start: 01-01-1900 1 gram/day [facility] Start: 02-27-2022 End: 03-11-2023 Current every day smoker [facility] Assertion Heterosexual (finding) [facility] Work Phone: Assertion Legal problem (finding) [facility] Work Phone: Assertion Lives with paren ts (finding) [facility] Work Phone: Assertion Emotional stress (finding) [facility] Work Phone: Assertion [facility] Work Phone: Assertion Finding of sexua l orientation (finding) [facility] Work Phone: Assertion Sexually active (finding) [facility] Work Phone: Assertion Tobacco user (finding) [facility] Work Phone: Assertion Heavy tobacco sm oker (finding) [facility] Work Phone: Assertion Smoker (finding) [facility] Work Phone: Assertion Gender identity finding (finding) [facility] Work Phone: Assertion Illicit drug use (finding) [facility] Work Phone: Assertion Misuse of prescr iption only drugs (finding) [facility] Work Phone: Assertion Opiate misuse (finding) [facility] Work Phone: Assertion Exposure to poll ution (event) [facility] Work Phone: Assertion Misuses drugs (finding) [facility] Work Phone: Tobacco smoking status Unknown if ever smoked [facility] Work Phone: Assertion Finding relating to drug misuse behavior (finding) [facility] Work Phone: Assertion Unemployed (finding) [facility] Work Phone: Start: 02-27-2022 Parent(s) [facility] Start: 02-27-2022 0 [facility] Start: 02-27-2022 Denies Use [facility] Start: 1985 Sex Assigned At Female [facility] NEGATED: Highlighted row Assertion Current drinker of alcohol (finding) [facility] Work Phone: NEGATED: Highlighted row Assertion Finding relating to drug misuse behavior (finding) [facility] Work Phone: NEGATED: Highlighted row Assertion She has not had 4 or more drinks in a day within the past year. 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 The patient transferred from the [facility] for suspected overdose. She received multiple doses of Narcan. Approached patient appeared drowsy. She is in restraints. She is adamant that she did not abuse any substance and attends the [place] for daily methadone treatment. She lives with two friends, one being Carmelina. She declined any substance abuse intervention, asserting she did not use any drugs, appears pre-occupied with where her cell phone is, and plans to continue methadone treatment at [facility] [place] where she has been attending for years. [facility] Progress note 11-12-2023 Note Date & Type Note Facility 11-12-2023 Note Patient was transfer red from the [facility] for suspected drug overdose. Assessment delayed at this time due to medical needs of the patient. [facility] Evaluation note Note Date & Type Note Facility Evaluation note No assessment information [facility] [employer] [facility] Work Phone: Evaluation note Note Date & Type Note Facility Evaluation note Diagnosis Onset Date UTI (urinary tract infection) acute [facility] Work Phone: Assessments Findings Encounter Date Generalized anxiety disorder BH Substanc e Abuse with Cindy Diehl [facility] 09/29/2018 Nicotine dependence BH Substance Abuse w ith Cindy Maurisio [facility] 09/29/2018 Opioid dependence BH Substance Abuse w ith Cindy Maurisio [facility] 09/29/2018 Body mass index Medical Established Patient with Lida Malone [facility] 09/29/2018 M79.604 - Pain in right leg Medical Esta blished Patient with Lida Malone [facility] 09/29/2018 Nicotine dependence uncomplicated Medica l Established Patient with iLda Malone [facility] 09/29/2018 Obesity due to excess calories Medical E stablished Patient with Lidamary Malone [facility] 09/29/2018 Prediabetes Medical Established Patient with Lida Malone [facility] 09/29/2018 R69 - Illness, unspecified Medical Estab lished Patient with Lida Malone [facility] 09/29/2018 Rheumatoid arthritis Medical Established Patient with Lida Malone [facility] 09/29/2018 J30.9 - Allergic rhinitis, unspecified O pen Access - Established with [facility] 09/02/2018 Obesity due to excess calories Open Acce ss - Established with [facility] 09/02/2018 Prediabetes Open Access - Establ ished with [facility] 09/02/2018 R60.0 - Localized edema Open Access - Es tablished with [facility] 09/02/2018 Z68.37 - Body mass index (BM I) 37.0-37.9, adult Open Access - Established with [facility] 09/02/2018 Dast - 10 Score was nine BH Established Patient with Cindy Maurisio [facility] 08/14/2018 JUAN CARLOS-7 score was three BH Established Pat ient with Cindy Forde [facility] 08/14/2018 Generalized anxiety disorder BH Establis hed Patient with Cindy Maurisio [facility] 08/14/2018 Nicotine dependence Established Patie nt with Cindy Forde [facility] 08/14/2018 Opioid dependence Established Patie nt with Cindy Forde [facility] 08/14/2018 PHQ-9: total score was two BH Establishe d Patient with Cindy Maurisio [facility] 08/14/2018 Anxiety disorder NOS Medical New Patient with Dennise Sha [facility] 08/14/2018 Depression Medical New Patient with Dennise Sha [facility] 08/14/2018 Fagerstrom Score was five 08/14/2018 =5 M edical New Patient with Dennise [place] [facility] 08/14/2018 JUAN CARLOS-7 score was three 08/14/2018 =3 Medic al New Patient with Dennise Sha [facility] 08/14/2018 Methamphetamine abuse Medical New Patien t with Dennise [place] [facility] 08/14/2018 Methamphetamine abuse - in remission Med ical New Patient with Dennise [place] [facility] 08/14/2018 Obesity Medical New Patient with Dennise Sha [facility] 08/14/2018 Obesity due to excess calories Medical N ew Patient with Dennise Sha [facility] 08/14/2018 PHQ-9: total score was two 08/14/2018 =2 Medical New Patient with Dennise Sha [facility] 08/14/2018 Prediabetes Medical New Patient with Dennise Sha [facility] 08/14/2018 Routine history and physical Medical New Patient with Dennise [place] [facility] 08/14/2018 Z68.37 - Body mass index (BM I) 37.0-37.9, adult Medical New Patient with Dennise [place] [facility] 08/14/2018 Findings Encounter Date Anxiety disorder NOS Medical Established Patient with Dennise Sha [facility] 10/13/2018 Body mass index Medical Established Patient with Dennise Sha [facility] 10/13/2018 Depression Medical Established Patient with Dennise Sha [facility] 10/13/2018 Rheumatoid arthritis Medical Established Patient with Dennise [place] [employer] 10/13/2018 Rheumatoid arthritis of the fingers Medi justin Established Patient with Dennise Sha [facility] 10/13/2018 Rheumatoid arthritis of the wrist Medica l Established Patient with Dennise [place] [facility] 10/13/2018 Generalized anxiety disorder BH Substanc e Abuse with Cindy Maurisio [facility] 09/29/2018 Nicotine dependence BH Substance Abuse w ith Cindy Maurisio [facility] 09/29/2018 Opioid dependence BH Substance Abuse w ith Cindy Maurisio [facility] 09/29/2018 Body mass index Medical Established Patient with Lida Faisal [facility] 09/29/2018 M79.604 - Pain in right leg Medical Esta blished Patient with Lida Faisal [facility] 09/29/2018 Nicotine dependence uncomplicated Medica l Established Patient with Lida Faisal [facility] 09/29/2018 Obesity due to excess calories Medical E stablished Patient with Lida Malone [facility] 09/29/2018 Prediabetes Medical Established Patient with Lida Malone [facility] 09/29/2018 R69 - Illness, unspecified Medical Estab lished Patient with Lida Malone [facility] 09/29/2018 Rheumatoid arthritis Medical Established Patient with Lida Malone [facility] 09/29/2018 J30.9 - Allergic rhinitis, unspecified O pen Access - Established with [facility] 09/02/2018 Obesity due to excess calories Open Acce ss - Established with [facility] 09/02/2018 Prediabetes Open Access - Establ ished with [facility] 09/02/2018 R60.0 - Localized edema Open Access - Es tablished with [facility] 09/02/2018 Z68.37 - Body mass index (BM I) 37.0-37.9, adult Open Access - Established with [facility] 09/02/2018 Dast - 10 Score was nine [facility] JUAN CARLOS-7 score was three Established Pat ient with [facility] 08/14/2018 Generalized anxiety disorder Establis hed Patient with [facility] 08/14/2018 Nicotine dependence Established Patie nt with [facility] 08/14/2018 Opioid dependence Established Patie nt with [facility] 08/14/2018 PHQ-9: total score was two [facility]ishe d [facility]2018 Anxiety disorder NOS Medical New Patient with Dennise [place] [facility] 08/14/2018 Depression Medical New Patient with Dennise Sha [facility] 08/14/2018 Fagerstrom Score was five 08/14/2018 =5 M edical New Patient with Dennise Sha [facility] 08/14/2018 JUAN CARLOS-7 score was three 08/14/2018 =3 Medic al New Patient with Dennise [place] [facility] 08/14/2018 Methamphetamine abuse Medical New Patien t with Dennise [place] [facility] 08/14/2018 Methamphetamine abuse - in remission Med ical New Patient with Dennise Sha [facility] 08/14/2018 Obesity Medical New Patient with Dennise [place] [facility] 08/14/2018 Obesity due to excess calories Medical N ew Patient with Dennise Gil [facility] 08/14/2018 PHQ-9: total score was two 08/14/2018 =2 Medical New Patient with Dennise Gil [facility] 08/14/2018 Prediabetes Medical New Patient with Dennise Gil [facility] 08/14/2018 Routine history and physical Medical New Patient with Dennise Gil [facility] 08/14/2018 Z68.37 - Body mass index (BM I) 37.0-37.9, adult Medical New Patient with Dennise Gil [facility] 08/14/2018 Findings Encounter Date Exposure to a viral disease Telemedicine with Mary Newman [facility] 09/29/2019 Anxiety disorder NOS Medical Established Patient with Dennise Gil [facility] 10/13/2018 Body mass index Medical Established Patient with Dennise Gil [facility] 10/13/2018 Depression Medical Established Patient with Dennise Gil [facility] 10/13/2018 Rheumatoid arthritis Medical Established Patient with Dennise Gil [facility] 10/13/2018 Rheumatoid arthritis of the fingers Medi justin Established Patient with Dennise Gil [facility] 10/13/2018 Rheumatoid arthritis of the wrist Medica l Established Patient with Dennise Gil [facility] 10/13/2018 Generalized anxiety disorder BH Substanc e Abuse with Cindy Forde [facility] 09/29/2018 Nicotine dependence BH Substance Abuse w ith Cindy Forde [facility] 09/29/2018 Opioid dependence BH [facility]stance [facility] 09/29/2018 Body mass index Medical Established Patient with Lida Malone [facility] 09/29/2018 M79.604 - Pain in right leg Medical Esta blished Patient with Lida Malone [facility] 09/29/2018 Nicotine dependence uncomplicated Medica l Established Patient with Lida Malone [facility] 09/29/2018 Obesity due to excess calories Medical E stablished Patient with Lida Malone [facility] 09/29/2018 Prediabetes Medical Established Patient with Lida Malone [facility] 09/29/2018 R69 - Illness, unspecified Medical Estab lished Patient with Lidamary Malone [facility] 09/29/2018 Rheumatoid arthritis Medical Established Patient with Lida Malone [facility] 09/29/2018 J30.9 - Allergic rhinitis, unspecified O pen Access - Established with Carlie Stringer [facility] 09/02/2018 Obesity due to excess calories Open Acce ss - Established with Carlie Stringer [facility] 09/02/2018 Prediabetes Open Access - Establ ished with Carliechristina Stringer [facility] 09/02/2018 R60.0 - Localized edema Open Access - [facility] Z68.37 - Body mass index (BM I) 37.0-37.9, adult Open [facility] Dast - 10 Score was nine BH Established Patient with Cindy Maurisio [facility] 08/14/2018 JUAN CARLOS-7 score was three BH Established Pat ient with Cindy Maurisio [facility] 08/14/2018 Generalized anxiety disorder Establis hed Patient with Cindy Maurisio [facility] 08/14/2018 Nicotine dependence [facility]14[facility]2018 Opioid dependence Established [facility]ie nt [facility] 08/14/2018 PHQ-9: total score was two Establishe d Patient with Cindy Maurisio [facility] 08/14/2018 Anxiety disorder NOS Medical New Patient with Dennise [place] [employer] [facility] 08/14/2018 Depression Medical New Patient with Dennise Sha [employer] [facility] 08/14/2018 Fagerstrom Score was five 08/14/2018 =5 M edical New Patient with Dennise [place] [facility] 08/14/2018 JUAN CARLOS-7 score was three 08/14/2018 =3 Medic al New Patient with Dennise [place] [employer] [facility] 08/14/2018 Methamphetamine abuse Medical New Patien t with Dennise [place] [facility] 08/14/2018 Methamphetamine abuse - in remission Med ical New Patient with Dennise [place] [facility] 08/14/2018 Obesity Medical New Patient with Dennise [place] [employer] 08/14/2018 Obesity due to excess calories Medical N ew Patient with Dennise [place] [employer] [facility] 08/14/2018 PHQ-9: total score was two 08/14/2018 =2 Medical New Patient with Dennise [place] [employer] [facility] 08/14/2018 Prediabetes Medical New Patient with Dennise [place] [employer] [facility] 08/14/2018 Routine history and physical Medical New Patient with Dennise [place] [employer] 08/14/2018 Z68.37 - Body mass index (BM I) 37.0-37.9, adult Medical New Patient with Dennise Sha [employer] 08/14/2018 Instructions Instructions not supported for this [...] Records FoundNo Advanced Directives Records FoundNo Advanced Directiv es Records Found Summary Purpose Reason for Referral [...] section and content) DATE CREATED AUTHOR 10/02/2018 [facility] DATE CREATED AUTHOR AUTHOR'S ORGANIZ ATION 10/03/2018 [facility] DATE CREATED AUTHOR AUTHOR'S ORGANIZ ATION 01/03/2019 [facility] DATE CREATED AUTHOR AUTHOR'S ORGANIZ ATION 04/04/2019 [facility] DATE CREATED AUTHOR AUTHOR'S ORGANIZ ATION 04/01/2020 [facility] DATE CREATED AUTHOR AUTHOR'S ORGANIZ ATION 11/17/2022 [facility] DATE CREATED AUTHOR AUTHOR'S ORGANIZ ATION 02/28/2023 [facility] DATE CREATED AUTHOR AUTHOR'S ORGANIZ ATION 04/04/2023 [facility] DATE CREATED AUTHOR AUTHOR'S ORGANIZ ATION 11/16/2023 [facility] DATE CREATED AUTHOR AUTHOR'S ORGANIZ ATION 12/19/2023 [facility] Care Teams (unrecognized sec tion [...] BE BASED ON THE PRIMARY CLINICAL RECORDS. [facility] [facility]. provides no warranty or guarantee of the accuracy or completeness of information in this document.
[2024-02-04 20:20] VITALS: BP 155/93; PULSE 70; TEMP 36.8; O2SAT 98; BMI 32.9
--- NOTE | 2024-02-04 20:25 | ED_ITS ---
<Statement entered by Rob Hawk MD - 02/06/24 01:21> This documentation has been reviewed and approved. Chart was sent to my inbox for administrative and group management purposes. I was the attending physicians working during the patients hospital course. The patient was seen and managed independently by the MLP. I did not personally see or evaluate this patient, nor was I involved in the patient medical decision making process or plans of care. Pt was dispositioned by the MLP with complete independence and I was not involved in planning. I was available for consultation should the MLP request during this patients ED stay. HPI - Chest Pain General Chief Complaint: Ear Stated Complaint: ear pain Time Seen by Provider: 02/04/24 20:12 Source: patient Mode of arrival: walk-in Limitations: no limitations History of Present Illness HPI narrative: Patient is a 38-year-old female who presents from a local treatment facility for evaluation of cough, right ear pain and chest pain. Patient states for the last week she has had cough, sinus congestion and ear pain. She states today she developed pain in the upper chest. She states she is not sure if she may have pulled a muscle. She denies sputum production with coughing. She denies tobacco abuse. She denies a possibility of . Risk Factors Coronary artery disease risk factors: hypertension Related Data Home Medications ?Medication ?Instructions ?Recorded ?Confirmed fmmlpqb-euvxnjsffdisl-jdvbywgd 250 1 tab PO Q6H 09/07/23 09/14/23 mg-250 mg-65 mg tablet (Pain Reliever Plus) buspirone 7.5 mg tablet 7.5 mg PO Q12H 09/07/23 09/14/23 cetirizine 10 mg tablet 10 mg PO DAILY 09/07/23 09/14/23 docusate sodium 100 mg capsule 100 mg PO DAILY 09/07/23 09/14/23 guaifenesin 600 mg tablet, 600 mg PO Q12H 09/07/23 09/14/23 extended release 12 hr (Mucinex) melatonin 10 mg tablet 10 mg PO DAILY 09/07/23 09/14/23 naltrexone microspheres 380 mg 380 mg IM .monthly 09/07/23 09/14/23 intramuscular suspension,extended release (Vivitrol) prazosin 1 mg capsule 1 mg PO DAILY 09/07/23 09/14/23 prednisone 10 mg tablet 10 mg PO Q12H 09/07/23 09/14/23 sertraline 50 mg tablet 50 mg PO Q24H 09/07/23 09/14/23 aripiprazole 5 mg tablet 5 mg PO DAILY 09/14/23 09/14/23 hydroxyzine pamoate 25 mg capsule 25 mg PO Q6H PRN nausea and 09/14/23 09/14/23 vomiting losartan 50 mg tablet 50 mg PO DAILY 09/14/23 09/14/23 trazodone 100 mg tablet 100 mg PO DAILY 09/14/23 09/14/23 Previous Rx's ?Medication ?Instructions ?Recorded albuterol sulfate 0.63 mg/3 mL 0.63 mg (3 mL) inhalation Q8H PRN 09/07/23 solution for nebulization shortness of breath or wheezing #90 mL ovczefzhlzekznc-mocndotjbgpkenq-TG 5 ml PO Q4H PRN cough #200 mL 09/14/23 2 mg-30 mg-10 mg/5 mL oral syrup (Bromfed DM) albuterol sulfate 2.5 mg/3 mL 2.5 mg (3 mL) inhalation Q6H PRN 02/04/24 (0.083 %) solution for nebulization shortness of breath or wheezing #90 mL nyfgbgabuffliru-ucwjixlfkpwykqh-HL 10 ml PO Q6H PRN cold symptoms 02/04/24 2 mg-30 mg-10 mg/5 mL oral syrup #200 mL (Bromfed DM) dexamethasone 4 mg tablet 4 mg PO BID 5 days #10 tabs 02/04/24 Allergies Allergy/AdvReac Type Severity Reaction Status Date / Time No Known Drug Allergies Allergy Verified 02/04/24 20:20 Review of Systems ROS Constitutional Reports: fever; Denies: chills Ears, nose, mouth, and throat Reports: ear pain and nasal congestion; Denies: throat pain Cardiovascular Reports: chest pain Respiratory Reports: cough; Denies: shortness of breath, change in phlegm color or coughing up blood Gastrointestinal Denies: nausea, vomiting or diarrhea Musculoskeletal Denies: back pain or neck pain Neurological Denies: headache, numbness in extremities or weakness in extremities Hematologic/Lymphatic Denies: easy bruising or easy bleeding [facility] Medical History (Updated 02/04/24 @ 21:54 by CECELIA Nails) Hypertension ?I10 - Essential (primary) hypertension (ICD-10) Diabetes ?E11.9 - Type 2 diabetes mellitus without complications (ICD-10) Social History Little interest or pleasure in doing things: not at all Feeling down, depressed, or hopeless: not at all Exam Narrative Exam Narrative: Gen.: Awake, alert, in no distress Head: Normocephalic, atraumatic ENT: Moist mucous membranes bilateral TMs are fluid-filled and bulging, minimal erythema to the right TM. No pharyngeal erythema. Respiratory: No respiratory distress, lungs clear bilaterally, no wheezing or rhonchi Cardio: Regular rate and rhythm Extremities: Moves extremities equally Psych: Normal mood and affect Neuro: No focal neuro deficit Skin: Warm, dry, intact Constitutional Vital Signs, click to edit/add: Last Vital Signs Temp 98.2 F 02/04/24 20:20 Pulse 82 02/04/24 21:47 Resp 20 02/04/24 21:47 BP 164/100 H 02/04/24 21:47 Pulse Ox 96 02/04/24 21:47 O2 Del Method Room Air 02/04/24 20:57 Course Vital Signs Vital signs: Vital Signs Temperature 98.2 F 02/04/24 20:20 Pulse Rate 70 02/04/24 20:20 Respiratory Rate 18 02/04/24 20:20 Blood Pressure 155/93 H 02/04/24 20:20 Pulse Oximetry 98 02/04/24 20:20 Oxygen Delivery Method Room Air 02/04/24 20:20 Temperature 98.2 F 02/04/24 20:20 Pulse Rate 82 02/04/24 21:47 Respiratory Rate 20 02/04/24 21:47 Blood Pressure 164/100 H 02/04/24 21:47 Pulse Oximetry 96 02/04/24 21:47 Oxygen Delivery Method Room Air 02/04/24 20:57 MDM - Chest Pain MDM Narrative Medical decision making narrative: Laboratory test reviewed and noted, patient with an elevated D-dimer and sent for CT angio of the chest to rule out blood clot. Patient is found to be positive for COVID. She was given a breathing treatment, Solu-Medrol and Toradol. She is hemodynamically stable with unremarkable vital signs and no hypoxia. 2155: CT angio of the chest is pending, case is turned over to attending physician for disposition at this time. SHARED APC VISIT, PHYSICIAN ATTESTATION: Liti-on-lzcv I performed a substantive part of the MDM during the patient?s E/M visit. I personally evaluated and examined the patient. I personally made or approved the documented management plan and acknowledge its risk of complications. Medical Records Data Attestation: I reviewed the patient's medical records. Lab Data Attestation: I reviewed the patient's lab results. Labs: Lab Results 02/04/24 02/04/24 Range/Units 20:30 20:35 WBC 5.3 (4.0-11.0) 10^3/uL RBC 4.18 L (4.20-5.40) 10^6/uL Hgb 13.2 (12.0-16.0) g/dL Hct 38.6 (36.0-48.0) % MCV 92.3 (81.0-99.0) fL MCH 31.6 (26.7-34.0) pg MCHC 34.2 (29.9-35.2) g/dL RDW 12.0 (11.0-15.0) % Plt Count 234 (150-450) 10^3/uL MPV 10.8 (9.5-13.5) fL Neut % (Auto) 45.4 (43.0-75.0) % Lymph % (Auto) 37.7 (20.5-60.0) % Early % (Auto) 10.4 (1.7-12.0) % Eos % (Auto) 5.5 (0.9-7.0) % Baso % (Auto) 0.8 (0.2-2.0) % Neut # (Auto) 2.4 (1.4-6.5) 10^3/uL Lymph # (Auto) 2.0 (1.2-3.8) 10^3/uL Early # (Auto) 0.6 (0.3-0.8) 10^3/uL Eos # (Auto) 0.3 (0.0-0.7) 10^3/uL Baso # (Auto) 0.0 (0.0-0.1) 10^3/uL Abs Immat Gran (auto) 0.01 (0.00-0.03) 10^3/uL Imm/Tot Granulo (auto) 0.2 (0.0-0.5) % D-Dimer 0.85 H* (<=0.59) mg/L FEU Sodium 143 (136-145) mmol/L Potassium 3.6 (3.5-5.1) mmol/L Chloride 108 H (98-107) mmol/L Carbon Dioxide 23.6 (21.0-32.0) mmol/L Anion Gap 15.0 BUN 14.0 (7.0-18.0) mg/dL Creatinine 0.99 (0.55-1.02) mg/dL Est GFR ( Amer) >60 (>=60 mL/min/1.73m^2) Est GFR (Non-Af Amer) >60 (>=60 mL/min/1.73m^2) BUN/Creatinine Ratio 14.1 Glucose 124 H (74-106) mg/dL Calcium 8.8 (8.5-10.1) mg/dL Total Bilirubin 0.1 L (0.2-1.0) mg/dL AST 9 L (15-37) U/L ALT 13 L (14-59) U/L Alkaline Phosphatase 89 (46-116) U/L Troponin I High Sens <4.0 L (4.0-51.3) pg/mL NT-Pro-B Natriuret Pep 46.0 (<=450.0) pg/mL Total Protein 6.2 L (6.4-8.2) g/dL Albumin 3.2 L (3.4-5.0) g/dL Globulin 3.0 g/dL Albumin/Globulin Ratio 1.1 Serum HCG, Qual Negative (NEGATIVE) Influenza Type A Ag Negative Influenza Type B Ag Negative SARS-CoV-2 Ag (CV2AG) Positive A (NEGATIVE) ECG Data Attestation: I personally reviewed and interpreted this ECG as follows: (Normal sinus rhythm at a rate of [address] elevation or ectopy. EKG reviewed by attending physician) Heart Score History: Slightly/Non-Suspicious ECG: Normal Age: <45 years Risk Factors: >3 Risk Factors/ HX of CAD:2 Troponin: <Normal Limit Total Heart Score Recommendations & Risks:: 2 Discharge Plan Discharge Patient Disposition: Still a Patient
--- NOTE | 2024-02-04 20:32 | ECG_ITS ---
[facility] Test Date: 2024-02-04 Pat Name: RIOS MENDEZ Department: Room: - Gender: Female Wrapper Layer: : 1985 Requested By: KADY MTZ Order Number: [id number] Reading MD: CARLO NASCIMENTO Measurements Intervals Julian Rate: 69 P: 46 IL: 148 QRS: 49 QRSD: 84 T: 32 QT: 396 QTc: 416 Interpretive Statements 1100 Sinus rhythm 9110 normal ECG Compared to ECG 09/14/2023 10:08:04 Sinus tachycardia no longer present Electronically Signed On 02-06-2024 6:14:42 EST by CARLO NASCIMENTO
[2024-02-04 20:42] LABS: Basophils Percent Auto 0.8 % (0.2-2.0); Eosinophils Absolute Auto 0.3 10^3/uL (0.0-0.7); Eosinophils Percent Auto 5.5 % (0.9-7.0); Hematocrit 38.6 % (36.0-48.0); Hemoglobin 13.2 g/dL (12.0-16.0); Immature Granulocytes Abs Auto 0.01 10^3/uL (0.00-0.03); Immature Granulocytes Pct Auto 0.2 % (0.0-0.5); Lymphocytes Percent Auto 37.7 % (20.5-60.0); Mean Corpuscular HGB Conc 34.2 g/dL (29.9-35.2); Mean Corpuscular Hemoglobin 31.6 pg (26.7-34.0); Mean Corpuscular Volume 92.3 fL (81.0-99.0); Mean Platelet Volume 10.8 fL (9.5-13.5); Monocytes Absolute Auto 0.6 10^3/uL (0.3-0.8); Monocytes Percent Auto 10.4 % (1.7-12.0); Neutrophils Absolute Auto 2.4 10^3/uL (1.4-6.5); Neutrophils Percent Auto 45.4 % (43.0-75.0); Platelet Count 234 10^3/uL (150-450); Red Blood Count 4.18 10^6/uL (4.20-5.40); White Blood Count 5.3 10^3/uL (4.0-11.0)
[2024-02-04] MEDS: METHYLPREDNISOLONE SOD SUCC PF 125 MG/2 ML VIAL IVP (20:46)
[2024-02-04] MEDS: KETOROLAC TROMETHAMINE 30 MG/ML VIAL IVP (20:46)
[2024-02-04 20:54] LABS: HCG Qualitative NEGATIVE (NEGATIVE); Internal Control Within Normal Limits
[2024-02-04 20:54] LABS: Influenza Virus A Antigen Negative; Influenza Virus B Antigen Negative; Internal Control Within Normal Limits; SARS-CoV-2 Ag POSITIVE (NEGATIVE)
[2024-02-04] MEDS: ALBUTEROL SULFATE 2.5 MG/3 ML VIAL NEB IH (20:54)
[2024-02-04 20:57] VITALS: PULSE 68; O2SAT 98
[2024-02-04 21:00] LABS: Alanine Aminotransferase 13 U/L (14-59); Albumin Globulin Ratio 1.1; Albumin Level 3.2 g/dL (3.4-5.0); Alkaline Phosphatase 89 U/L (46-116); Aspartate Amino Transferase 9 U/L (15-37); BUN Creatinine Ratio 14.1; Bilirubin Total 0.1 mg/dL (0.2-1.0); Calcium 8.8 mg/dL (8.5-10.1); Carbon Dioxide 23.6 mmol/L (21.0-32.0); Chloride 108 mmol/L (98-107); Estimated GFR (African America >60 (>=60 mL/min/1.73m^2); Estimated GFR (Non-African Ame >60 (>=60 mL/min/1.73m^2); Glucose 124 mg/dL (74-106); Potassium 3.6 mmol/L (3.5-5.1); Sodium 143 mmol/L (136-145); Total Protein 6.2 g/dL (6.4-8.2)
[2024-02-04 21:06] LABS: Troponin I High Sensitivity <4.0 pg/mL (4.0-51.3)
[2024-02-04 21:07] LABS: D Dimer 0.85 mg/L FEU (<=0.59)
--- NOTE | 2024-02-04 21:10 | CT_ITS ---
[address] [address] Patient Name: RIOS MENDEZ MRN: [id number] date: 1985 Sex: F Assigned Patient Location: ER Current Patient Location: .[facility] Accession/Order Number: [id number] Exam Date: 02/04/2024 21:26 Report Date: 02/04/2024 22:11 At the request of: TORRES PEÑA Procedure: CT angio chest EXAM: CT angio chest HISTORY: Chest pain, pulmonary embolism COMPARISON: None. TECHNIQUE: CT angiography of the pulmonary arteries following the administration of intravenous contrast. Coronal and sagittal MIP (maximum intensity projection) images were performed. Dose reduction techniques were achieved by using automated exposure control and/or adjustment of mA and/or kV according to patient size and/or use of iterative reconstruction technique. FINDINGS: The study is technically adequate for the diagnosis of pulmonary embolism, with good contrast bolus to the pulmonary arteries. TUBES AND IMPLANTS: None. CHEST WALL AND LOWER NECK: Unremarkable. BONES: No suspicious lesions UPPER ABDOMEN: Unremarkable. MEDIASTINUM AND TREMAYNE: Unremarkable. AORTA: No aneurysm or dissection PULMONARY ARTERIES: No embolism HEART: Unremarkable CORONARY ARTERIES: No coronary artery calcifications. LUNG AND AIRWAYS: Unremarkable. PLEURA: Unremarkable. CT/CT angio chest IMPRESSION: 1. No evidence for pulmonary embolism or other acute intrathoracic process. Electronically authenticated by: CARLI ALLEN Date: 02/04/2024 22:11
[2024-02-04 21:47] VITALS: BP 164/100; PULSE 82; O2SAT 96
[2024-02-04 22:00] VITALS: BP 152/94; PULSE 77; O2SAT 95
[2024-02-04 22:33] VITALS: BP 141/100; PULSE 76; TEMP 36.7; O2SAT 97
--- NOTE | 2024-02-04 22:57 | PC.NURSE ---
i gave verbal and paper discharge orders along with 4 Rx, this patient voices yes to understanding these discharge orders and Rx. at time of discharge this patient voices no concerns and shows no signs of distress
== END 2024-02-04 22:42 | disposition home or self-care (01) ==
PROVIDERS: Physician Assistant; Emergency Provider Emergency Medicine; PCP Family Medicine
DX: U07.1 COVID-19 (principal); J06.9 Acute upper respiratory infection, unspecified; R07.9 Chest pain, unspecified; I10 Essential (primary) hypertension
CPT/HCPCS: 36415; 71275; 80053; 83880; 84484; 84703; 85025; 85378; 87804; 87811; 93005; 94640; 96374; 96375; 99285; J1885; J2919; Q9967